=== PATIENT | male | born 1950 | race Caucasian/White ===

== ENCOUNTER 2017-10-23 11:40 | Emergency (ER) | payer MEDICARE, SELFPAY | END 2017-10-23 13:23 | disposition home or self-care (01) | PROVIDERS: Emergency Provider Nurse Practitioner Family; Family Provider Internal Medicine Adolescent Medicine; Visit Provider Nurse Practitioner Family | DX: J10.1 Influenza due to other identified influenza virus with other respiratory manifestations (principal); R50.9 Fever, unspecified | CPT/HCPCS: 87804; 99201 ==

== ENCOUNTER → 2018-06-22 12:50 | Outpatient (CLI) | payer MEDICARE, SELFPAY ==
--- NOTE | 2018-06-22 13:10 | NVE_ITS ---
Venous Exam Indications: 729.5 Pain in limb. IMPRESSIONS 1. There is no evidence of significant Reflux. 2. No evidence of deep or superficial vein thrombosis involving the left lower extremity Left lower extremity venous duplex evaluation. Doppler flow study including spectral analysis, color and velasquez scale imaging. Location: Vascular laboratory. Patient status: Outpatient. Tables: Venous flow and imaging: + +-------+ + Location Overall Flow properties + +-------+ + Left common femoral Patent Normal phasicity; spontaneous; normal augmentation; compressible + +-------+ + Left saphenofemoral junction Patent Compressible + +-------+ + Left profunda femoral Patent Compressible + +-------+ + Left femoral Patent Normal phasicity; spontaneous; normal augmentation; compressible + +-------+ + Left greater saphenous Patent Normal phasicity; spontaneous; normal augmentation; compressible + +-------+ + Left popliteal Patent Normal phasicity; spontaneous; normal augmentation; compressible + +-------+ + Left posterior tibial Patent Compressible + +-------+ + Left peroneal Patent Compressible + +-------+ + Left gastrocnemius Patent Compressible + +-------+ + Left soleal Patent Compressible + +-------+ + (Report amended ) Electronically signed by: Mike Adair [id number]
[2018-06-22 14:25] LABS: Alanine Aminotransferase 48 U/L (12-78); Albumin Level 4.2 gm/dL (3.4-5.0); Albumin/Globulin Ratio 1.3 (1.1-1.8); Alkaline Phosphatase 95 U/L (46-116); Anion Gap 15.2 mEq/L (5-15); Aspartate Amino Transferase 25 U/L (15-37); Bilirubin,Total 0.6 mg/dL (0.2-1.0); Blood Urea Nitrogen 6 mg/dL (7-18); Calcium 9.3 mg/dL (8.5-10.1); Carbon Dioxide 25 mmol/L (21.0-32.0); Chloride 100 mmol/L (98-107); Chol/HDL Ratio 2.6 (1-3.5); Cholesterol 247 mg/dL (140-200); Estimated Glomerular Filt Rate 84 ml/min (>60); GFR (African American) 102 ML/MIN (>60); Globulin 3.3 gm/dl (1.3-3.2); Glucose 127 mg/dL (74-106); HDL Cholesterol 94 mg/dL (27-67); LDL Cholesterol 136 mg/dL (0-130); Potassium 4.2 mmoL/L (3.5-5.1); Sodium 136 mmol/L (136-145); Total Protein,Serum 7.5 gm/dL (6.4-8.2); Triglycerides 84 mg/dL (30-200); VLDL Cholesterol 17 mg/dL (0-40)
[2018-06-22 15:15] LABS: INR 8.93 (0.9-1.1); Prothrombin Time 86.3 seconds (9.4-11.8)
== END ==
PROVIDERS: PCP Internal Medicine Adolescent Medicine; Visit Provider Nurse Practitioner Family
DX: Z00.00 Encounter for general adult medical examination without abnormal findings (principal); Z79.01 Long term (current) use of anticoagulants; Z51.81 Encounter for therapeutic drug level monitoring; I48.0 Paroxysmal atrial fibrillation; M79.605 Pain in left leg; E78.5 Hyperlipidemia, unspecified
CPT/HCPCS: 36415; 80053; 80061; 85610; 93971

== ENCOUNTER 2018-06-27 08:27 | Outpatient (CLI) | payer MEDICARE, SELFPAY ==
[2018-06-27 10:26] LABS: PHA INR Fingerstick 1.6 (0.9-1.1)
== END 2018-06-27 11:33 | disposition home or self-care (01) ==
LOC: ACC 08:29
PROVIDERS: PCP Internal Medicine Adolescent Medicine; Visit Provider Internal Medicine Adolescent Medicine
DX: Z79.01 Long term (current) use of anticoagulants (principal); Z51.81 Encounter for therapeutic drug level monitoring; I48.91 Unspecified atrial fibrillation
CPT/HCPCS: 85610; 99211; G0463

== ENCOUNTER 2018-07-05 09:01 | Outpatient (CLI) | payer MEDICARE, SELFPAY ==
[2018-07-05 10:31] LABS: PHA INR Fingerstick 2.4 (0.9-1.1)
== END 2018-07-05 10:41 | disposition home or self-care (01) ==
LOC: ACC 09:04
PROVIDERS: Family Provider Internal Medicine Adolescent Medicine; PCP Internal Medicine Adolescent Medicine; Visit Provider Internal Medicine Adolescent Medicine
DX: Z51.81 Encounter for therapeutic drug level monitoring (principal); Z79.01 Long term (current) use of anticoagulants; I48.91 Unspecified atrial fibrillation
CPT/HCPCS: 85610; 99211; G0463

== ENCOUNTER 2018-07-14 08:51 | Outpatient (CLI) | payer MEDICARE, SELFPAY ==
[2018-07-14 09:45] LABS: PHA INR Fingerstick 2.7 (0.9-1.1)
== END 2018-07-14 09:48 | disposition home or self-care (01) ==
LOC: ACC 08:51
PROVIDERS: PCP Internal Medicine Adolescent Medicine; Visit Provider Internal Medicine Adolescent Medicine
DX: Z79.01 Long term (current) use of anticoagulants (principal); Z51.81 Encounter for therapeutic drug level monitoring; I48.91 Unspecified atrial fibrillation
CPT/HCPCS: 85610; 99211; G0463

== ENCOUNTER 2018-08-07 08:47 | Outpatient (CLI) | payer MEDICARE, SELFPAY ==
[2018-08-07 09:33] LABS: PHA INR Fingerstick 2.1 (0.9-1.1)
== END 2018-08-07 09:43 | disposition home or self-care (01) ==
LOC: ACC 08:48
PROVIDERS: PCP Internal Medicine Adolescent Medicine; Visit Provider Internal Medicine Adolescent Medicine
DX: Z51.81 Encounter for therapeutic drug level monitoring (principal); Z79.01 Long term (current) use of anticoagulants; I48.91 Unspecified atrial fibrillation
CPT/HCPCS: 85610; 99211; G0463

== ENCOUNTER 2018-08-28 08:52 | Outpatient (CLI) | payer MEDICARE, SELFPAY ==
[2018-08-28 09:55] LABS: PHA INR Fingerstick 2.7 (0.9-1.1)
== END 2018-08-28 09:56 | disposition home or self-care (01) ==
LOC: ACC 08:53
PROVIDERS: PCP Internal Medicine Adolescent Medicine; Visit Provider Internal Medicine Adolescent Medicine
DX: Z51.81 Encounter for therapeutic drug level monitoring (principal); Z79.01 Long term (current) use of anticoagulants; I48.91 Unspecified atrial fibrillation
CPT/HCPCS: 85610; 99211; G0463

== ENCOUNTER 2018-11-27 09:02 | Outpatient (CLI) | payer MEDICARE, SELFPAY ==
[2018-11-27 16:43] LABS: PHA INR Fingerstick 1.6 (0.9-1.1)
== END 2018-11-27 16:49 | disposition home or self-care (01) ==
LOC: ACC 09:04
PROVIDERS: PCP Internal Medicine Adolescent Medicine; Visit Provider Internal Medicine Adolescent Medicine
DX: Z51.81 Encounter for therapeutic drug level monitoring (principal); Z79.01 Long term (current) use of anticoagulants; I48.91 Unspecified atrial fibrillation
CPT/HCPCS: 85610; 99211; G0463

== ENCOUNTER → 2019-08-27 09:56 | Outpatient (CLI) | payer MEDICARE, SELFPAY ==
[2019-08-27 10:51] LABS: Basophils # 0.1 K/mm3 (0-0.2); Basophils % 0.9 % (0.1-2.0); Eosinophils # 0.4 K/mm3 (0.0-0.4); Eosinophils % 3.6 % (0.1-12.0); Hematocrit 51.7 % (42.0-52.0); Lymphocytes # 2.1 K/mm3 (0.7-4.5); Lymphocytes % 21.5 % (10-50); Mean Corpuscular HGB Conc 32.9 g/dL (31.8-35.4); Mean Corpuscular Hemoglobin 31.6 pg (27.0-31.2); Mean Platelet Volume 8.2 fl (7.4-10.4); Monocytes # 0.8 K/mm3 (0.1-1.0); Monocytes % 8.4 % (1.7-9.3); Neutrophils # 6.5 K/mm3 (1.8-7.8); Neutrophils % 65.6 % (37.0-80.0); Platelet Count 351 K/mm3 (142-424); Red Blood Count 5.38 M/mm3 (4.60-6.20); White Blood Count 9.9 K/mm3 (4.8-10.8)
[2019-08-27 11:55] LABS: INR 5.17 (0.9-1.1)
[2019-08-27 13:45] LABS: Prothrombin Time 49.7 seconds (9.4-11.8)
[2019-08-27 20:35] LABS: Alanine Aminotransferase 35 U/L (12-78); Albumin Level 3.8 gm/dL (3.4-5.0); Albumin/Globulin Ratio 1.3 (1.1-1.8); Alkaline Phosphatase 80 U/L (46-116); Anion Gap 13.6 mEq/L (5-15); Aspartate Amino Transferase 17 U/L (15-37); Bilirubin,Total 0.7 mg/dL (0.2-1.0); Blood Urea Nitrogen 12 mg/dL (7-18); Calcium 9.6 mg/dL (8.5-10.1); Carbon Dioxide 28 mmol/L (21.0-32.0); Chloride 102 mmol/L (98-107); Chol/HDL Ratio 2.2 (1-3.5); Cholesterol 161 mg/dL (140-200); Creatinine,Serum 0.75 mg/dL (0.70-1.30); Estimated Glomerular Filt Rate 104 ml/min (>60); Free Thyroxine Index 2.8 ug/dL (5.93-13.13); GFR (African American) 125 ML/MIN (>60); Glucose 110 mg/dL (74-106); HDL Cholesterol 72 mg/dL (27-67); LDL Cholesterol 65 mg/dL (0-130); Magnesium 1.6 mg/dL (1.4-2.2); Potassium 4.6 mmoL/L (3.5-5.1); Sodium 139 mmol/L (136-145); T4 (Thyroxine) 7.7 ug/dl (4.7-13.3); Thyroid Stimulating Hormone 1.61 uIU/ml (0.358-3.740); Total Protein,Serum 6.8 gm/dL (6.4-8.2); Triglycerides 118 mg/dL (30-200); Triiodothryronine (T3) Uptake 36 % (31-39); VLDL Cholesterol 24 mg/dL (0-40)
== END ==
PROVIDERS: Visit Provider Internal Medicine Adolescent Medicine
DX: I48.0 Paroxysmal atrial fibrillation (principal); E78.5 Hyperlipidemia, unspecified
CPT/HCPCS: 36415; 80053; 80061; 83735; 84436; 84443; 84479; 85025; 85610

== ENCOUNTER 2019-08-31 08:34 | Outpatient (CLI) | payer MEDICARE, SELFPAY ==
[2019-08-31 13:50] LABS: PHA INR Fingerstick 1.4 (0.9-1.1)
== END 2019-08-31 14:10 | disposition home or self-care (01) ==
LOC: ACC 08:35
PROVIDERS: PCP Internal Medicine Adolescent Medicine; Visit Provider Internal Medicine Adolescent Medicine
DX: Z51.81 Encounter for therapeutic drug level monitoring (principal); Z79.01 Long term (current) use of anticoagulants; I48.91 Unspecified atrial fibrillation
CPT/HCPCS: 85610; 99211; G0463

== ENCOUNTER 2019-10-01 09:26 | Outpatient (CLI) | payer MEDICARE, SELFPAY ==
[2019-10-01 11:57] LABS: PHA INR Fingerstick 2.5 (0.9-1.1)
== END 2019-10-01 12:03 | disposition home or self-care (01) ==
LOC: ACC 09:27
PROVIDERS: PCP Internal Medicine Adolescent Medicine; Visit Provider Internal Medicine Adolescent Medicine
DX: Z51.81 Encounter for therapeutic drug level monitoring (principal); Z79.01 Long term (current) use of anticoagulants; I48.91 Unspecified atrial fibrillation
CPT/HCPCS: 85610; 99211; G0463

== ENCOUNTER 2019-11-05 09:59 | Outpatient (CLI) | payer MEDICARE, SELFPAY ==
[2019-11-05 14:44] LABS: PHA INR Fingerstick 3.2 (0.9-1.1)
== END 2019-11-05 14:58 | disposition home or self-care (01) ==
LOC: ACC 10:01
PROVIDERS: PCP Internal Medicine Adolescent Medicine; Visit Provider Internal Medicine Adolescent Medicine
DX: Z51.81 Encounter for therapeutic drug level monitoring (principal); Z79.01 Long term (current) use of anticoagulants; I48.91 Unspecified atrial fibrillation
CPT/HCPCS: 85610; 99211; G0463

== ENCOUNTER → 2020-02-16 09:36 | Outpatient (CLI) | payer MEDICARE, SELFPAY ==
[2020-02-16 09:55] LABS: Basophils # 0.2 K/mm3 (0-0.2); Basophils % 2.1 % (0.1-2.0); Eosinophils # 0.5 K/mm3 (0.0-0.4); Eosinophils % 6.3 % (0.1-12.0); Hematocrit 49.1 % (42.0-52.0); Hemoglobin 16.8 g/dL (14.1-18.0); Lymphocytes % 24.8 % (10-50); Mean Corpuscular HGB Conc 34.3 g/dL (31.8-35.4); Mean Corpuscular Hemoglobin 32.3 pg (27.0-31.2); Mean Corpuscular Volume 94.3 fl (80-94); Mean Platelet Volume 7.8 fl (7.4-10.4); Monocytes # 0.6 K/mm3 (0.1-1.0); Monocytes % 7.2 % (1.7-9.3); Neutrophils # 4.9 K/mm3 (1.8-7.8); Neutrophils % 59.7 % (37.0-80.0); Platelet Count 276 K/mm3 (142-424); Red Cell Distribution Width 12.9 % (11.5-17.5); White Blood Count 8.2 K/mm3 (4.8-10.8)
[2020-02-16 10:27] LABS: Hemoglobin A1C 5.4 % (4.0-6.0)
[2020-02-16 11:13] LABS: Alanine Aminotransferase 51 U/L (12-78); Albumin Level 4.5 g/dl (3.5-5.0); Albumin/Globulin Ratio 1.7 (1.1-1.8); Alkaline Phosphatase 65 U/L (38-126); Anion Gap 5.4 mEq/L (5-15); Aspartate Amino Transferase 41 U/L (17-59); Bilirubin,Total 0.5 mg/dl (0.2-1.3); Blood Urea Nitrogen 13 mg/dl (9-20); Calcium 10.2 mg/dl (8.4-10.2); Carbon Dioxide 27 mmol/L (22.0-30.0); Chloride 101 mmol/L (98-107); Chol/HDL Ratio 2.5 (1-3.5); Cholesterol 235 mg/dl (140-200); Estimated Glomerular Filt Rate 112 ml/min (>60); GFR (African American) 135 ML/MIN (>60); Globulin 2.7 g/dL (1.3-3.2); Glucose 112 mg/dl (74-100); HDL Cholesterol 95 mg/dl (40-60); Potassium 4.4 mmoL/L (3.5-5.1); Sodium 129 mmol/L (136-145); Total Protein,Serum 7.2 g/dl (6.3-8.2); Triglycerides 115 mg/dl (30-150); VLDL Cholesterol 23 mg/dL (0-40)
[2020-02-16 11:24] LABS: Direct LDL Cholesterol 150.12 mg/dL (100-129)
[2020-02-16 11:44] LABS: Thyroid Stimulating Hormone 2.78 uIU/mL (0.465-4.68)
[2020-02-17 15:17] LABS: Rapid Plasma Reagin Ab Titer Non Reactive (NonRea<1:1)
[2020-02-18 11:06] LABS: Vitamin D 25 Hydroxy 14.6 ng/mL (30.0-100.0)
[2020-02-18 12:47] LABS: Vitamin B12 556 pg/mL (232-1245)
== END ==
PROVIDERS: Visit Provider Internal Medicine Adolescent Medicine
DX: I10 Essential (primary) hypertension (principal); G60.9 Hereditary and idiopathic neuropathy, unspecified; E55.9 Vitamin D deficiency, unspecified; Z79.899 Other long term (current) drug therapy
CPT/HCPCS: 36415; 80053; 80061; 82607; 82652; 83036; 84443; 85025; 86592

== ENCOUNTER → 2020-03-04 09:10 | Outpatient (CLI) | payer MEDICARE, SELFPAY ==
[2020-03-04 11:28] LABS: Chloride 101 mmol/L (98-107); Sodium 135 mmol/L (136-145)
[2020-03-04 11:31] LABS: Blood Urea Nitrogen 11 mg/dl (9-20); Carbon Dioxide 25 mmol/L (22.0-30.0); Estimated Glomerular Filt Rate 134 ml/min (>60); GFR (African American) 162 ML/MIN (>60)
[2020-03-04 11:32] LABS: Calcium 9.8 mg/dl (8.4-10.2); Glucose 103 mg/dl (74-100)
== END ==
PROVIDERS: Visit Provider Internal Medicine Adolescent Medicine
DX: E87.1 Hypo-osmolality and hyponatremia (principal)
CPT/HCPCS: 36415; 80048

== ENCOUNTER → 2020-10-15 13:25 | Outpatient (CLI) | payer MEDICARE, SELFPAY ==
[2020-10-15 14:21] LABS: Basophils # 0.1 K/mm3 (0-0.2); Basophils % 0.9 % (0.1-2.0); Eosinophils # 0.3 K/mm3 (0.0-0.4); Eosinophils % 2.5 % (0.1-12.0); Lymphocytes # 2.4 K/mm3 (0.7-4.5); Lymphocytes % 23.2 % (10-50); Mean Corpuscular HGB Conc 34.8 g/dL (31.8-35.4); Mean Corpuscular Hemoglobin 32.1 pg (27.0-31.2); Mean Corpuscular Volume 92.3 fl (80-94); Monocytes # 0.9 K/mm3 (0.1-1.0); Monocytes % 8.5 % (1.7-9.3); Neutrophils # 6.6 K/mm3 (1.8-7.8); Platelet Count 302 K/mm3 (142-424); Red Blood Count 5.31 M/mm3 (4.60-6.20); Red Cell Distribution Width 13.2 % (11.5-17.5); White Blood Count 10.2 K/mm3 (4.8-10.8)
[2020-10-15 14:40] LABS: Chloride 103 mmol/L (98-107)
[2020-10-15 14:41] LABS: Potassium 4.4 mmoL/L (3.5-5.1); Sodium 137 mmol/L (136-145)
[2020-10-15 14:43] LABS: Alanine Aminotransferase 36 U/L (12-78); Alkaline Phosphatase 88 U/L (38-126); Aspartate Amino Transferase 29 U/L (17-59); Bilirubin,Total 0.6 mg/dl (0.2-1.3); Blood Urea Nitrogen 9 mg/dl (9-20); Estimated Glomerular Filt Rate 111 ml/min (>60); GFR (African American) 135 ML/MIN (>60)
[2020-10-15 14:44] LABS: Albumin Level 4.5 g/dl (3.5-5.0); Albumin/Globulin Ratio 1.5 (1.1-1.8); Anion Gap 11.4 mEq/L (5-15); Calcium 10.2 mg/dl (8.4-10.2); Carbon Dioxide 27 mmol/L (22.0-30.0); Chol/HDL Ratio 2.7 (1-3.5); Cholesterol 222 mg/dl (140-200); Glucose 107 mg/dl (74-100); HDL Cholesterol 83 mg/dl (40-60); Total Protein,Serum 7.5 g/dl (6.3-8.2); Triglycerides 104 mg/dl (30-150); VLDL Cholesterol 21 mg/dL (0-40)
[2020-10-15 14:55] LABS: Direct LDL Cholesterol 121.57 mg/dL (100-129)
[2020-10-15 15:01] LABS: 25-OH Vitamin D, Total 27.3 ng/mL (30-100)
[2020-10-15 15:14] LABS: Thyroid Stimulating Hormone 3.09 uIU/mL (0.465-4.68)
== END ==
PROVIDERS: Visit Provider Internal Medicine Adolescent Medicine
DX: E78.5 Hyperlipidemia, unspecified (principal); E55.9 Vitamin D deficiency, unspecified; G60.9 Hereditary and idiopathic neuropathy, unspecified
CPT/HCPCS: 36415; 80053; 80061; 82306; 84443; 85025

== ENCOUNTER 2021-04-27 09:13 | Emergency (ER) | payer MEDICARE, SELFPAY ==
[2021-04-27 09:32] VITALS: BP 163/110; PULSE 78; RESP 22; TEMP 36.9; O2SAT 98; BMI 27.8
--- NOTE | 2021-04-27 09:50 | HMH.EDUTC ---
[facility] Disposition Clinical Impression: Bronchitis Sinusitis Qualifiers: Sinusitis location: unspecified location Chronicity: acute Recurrence: non-recurrent Qualified Code(s): J01.90 - Acute sinusitis, unspecified Disposition: Home, Self-Care Condition on Discharge: Good Instructions: DI for Sinusitis, DI for Acute Bronchitis Additional Instructions: Drink plenty of fluids. Take tylenol for pain or fever. Return if you have any worsening shortness of breath or Follow up with your regular doctor. GO TO THE ER FOR ANY WORSENING SYMPTOMS Prescriptions: Ondansetron [Zofran 4mg ODT] 4 mg PO Q8HP PRN #12 tab.rapdis PRN Reason: Nausea Transmission Status: Received by [facility] predniSONE [Deltasone 10mg tablet] 10 mg PO BID 3 Days #6 tab Transmission Status: Received by [facility] Cefdinir [Omnicef 300mg Capsule] 300 mg PO BID #20 cap Transmission Status: Received by [facility] Benzonatate [Tessalon Perle 100mg Cap] 100 mg PO TIDP PRN #30 cap PRN Reason: Cough Transmission Status: Received by [facility] Referrals: Quinton Temple MD [Primary Care Provider] - Time of Disposition: 10:29 Medical Decision Making - Medical Records Medical records reviewed: No: I reviewed the patient's medical records. - Teofilo Inquiry Pt receiving controlled substance: No Vital Signs: 04/27/21 09:32 04/27/21 10:24 Temperature 98.4 F 98.3 F Temperature Source Temporal Artery Scan Pulse Rate 74 Pulse Rate [Right] 78 Respiratory Rate 22 22 Blood Pressure 163/102 H Blood Pressure [Right Arm] 163/110 H Blood Pressure Mean [Right Arm] 127 Blood Pressure Source [Right Arm] Automatic Cuff Blood Pressure Position [Right Arm] Sitting 02 Sat by Pulse Oximetry 98 - Radiology Data #1 Image(s): Chest Image Reviewed: Yes I reviewed the patient's radiology image, Yes I have reviewed radiologist's interpretation Preliminary Findings: No Infiltrates Seen PROCEDURE: XR CHEST 2V CLINICAL HISTORY: cough, shortness of breath COMPARISON: CR CXR CHEST(2 VIEWS-NOT PORTABLE) from 11/08/[address] CHEST W/ CONTRAST from 10/02/2014 CR CXR CHEST(2 VIEWS-NOT PORTABLE) from 09/11/2015 CR CXR CHEST(2 VIEWS-NOT PORTABLE) from 06/01/2017 FINDINGS: There has been a prior CABG. Bipolar pacemaker is present from left subclavian approach. Normal heart size. No lobar consolidation or collapse. There is a small 5 mm nodular opacity overlying the left lower lobe at the 6th interspace possibly due to nipple shadow. Follow-up may confirm. Postsurgical changes lumbar spine. Right-sided carotid artery calcification. IMPRESSION: No acute finding. 5 mm nodular opacity left lower lung zone possibly due to nipple shadow or developing nodule. Follow-up may confirm stability Dictated by: Mike Adair MD 04/27/2021 10:12 Mike Adair MD in [place] 04/27/2021 10:12 Medical Decision Narrative: I discussed his chest x-ray with him. He is to f/u with his pcp for further evaluation. [facility] HPI - General Stated complaint: congestion, cough, vomiting Time Seen by Provider: 04/27/21 09:50 Mode of Arrival: Ambulatory Source of Information: Patient Limitations: No Limitations Description of Symptoms (Recalled from Triage Doc. by RN): pt c/o weakness, sinus congestion, lack of appetite and a low grade fever. pt appears slightly soa, and has a hx of COPD. pt has been vaccinated for covid. HEENT Symptoms (Recalled from RN notes): Yes (nasal congestion) Resp Symptoms (Recalled from RN notes): No Skin Symptoms (Recalled from RN notes): No MS Symptoms (Recalled from RN notes): No Functional Status (Recalled from RN notes): weakness - History of Present Illness Provider Complaint: He c/o 5 days of sinus congestion and feeling bad. He has had a low grade fever. He denies any shortness of breath or chest pain. - Related Data
--- NOTE | 2021-04-27 09:54 | XR_ITS ---
PROCEDURE: XR CHEST 2V CLINICAL HISTORY: cough, shortness of breath COMPARISON: CR CXR CHEST(2 VIEWS-NOT PORTABLE) from 11/08/[address] CHEST W/ CONTRAST from 10/02/2014 CR CXR CHEST(2 VIEWS-NOT PORTABLE) from 09/11/2015 CR CXR CHEST(2 VIEWS-NOT PORTABLE) from 06/01/2017 FINDINGS: There has been a prior CABG. Bipolar pacemaker is present from left subclavian approach. Normal heart size. No lobar consolidation or collapse. There is a small 5 mm nodular opacity overlying the left lower lobe at the 6th interspace possibly due to nipple shadow. Follow-up may confirm. Postsurgical changes lumbar spine. Right-sided carotid artery calcification. IMPRESSION: No acute finding. 5 mm nodular opacity left lower lung zone possibly due to nipple shadow or developing nodule. Follow-up may confirm stability Dictated by: Mike Adair MD 04/27/2021 10:12 Mike Adair MD in [place] 04/27/2021 10:12
[2021-04-27 10:24] VITALS: BP 163/102; PULSE 74; RESP 22; TEMP 36.8
== END 2021-04-27 10:35 | disposition home or self-care (01) ==
PROVIDERS: Emergency Provider Nurse Practitioner Family; PCP Internal Medicine Adolescent Medicine
DX: J20.9 Acute bronchitis, unspecified (principal); J01.90 Acute sinusitis, unspecified
CPT/HCPCS: 71046; 99202; G0463

== ENCOUNTER → 2021-05-07 13:12 | Outpatient (CLI) | payer MEDICARE, SELFPAY ==
--- NOTE | 2021-05-07 13:33 | CT_ITS ---
PROCEDURE: CT CHEST W CON CLINCAL INDICATION: LT LUNG MASS Abnormal chest x-ray follow-up. Possible left lower lobe nodule COMPARISON: CT CHW CT CHEST W/ CONTRAST from 10/02/2014 CR XR CHEST 2V from 04/27/2021 TECHNIQUE: IV Contrast: 75ml Isovue 370 Axial images obtained with sagittal and coronal reformats. All CT scans at the facility use one or more dose reduction, viz: automated exposure control, ma/kV adjustment per patient size (including targeted exams where dose is matched to indication, i.e. head), or iterative reconstruction technique. FINDINGS: Cardiac pacemaker device is present from the left subclavian approach with right atrial and right ventricular leads. There is been a prior CABG. The heart size is normal with a few small mediastinal lymph nodes. Coronary artery calcifications are present. No mediastinal or hilar mass or adenopathy. COPD changes. Calcified granuloma in the right lower lobe posteriorly. Patchy density is present in the left lower lobe consistent with an area of infiltrate and/or atelectatic change. There is mild diffuse bronchial thickening. No suspicious left lower lobe nodules evident. Radiographic abnormality likely corresponded to a nipple shadow. Upper abdominal images show heterogeneous fatty liver replacement. IMPRESSION: Patchy infiltrate or atelectasis in the left lower lobe. COPD changes. No suspicious nodule apparent. Dictated by: Mike Adair MD 05/07/2021 16:02 Mike Adair MD in [place] 05/07/2021 16:02
[2021-05-07 13:39] LABS: Blood Urea Nitrogen 13 mg/dl (9-20); Estimated Glomerular Filt Rate 111 ml/min (>60); GFR (African American) 135 ML/MIN (>60)
== END ==
LOC: RAD 13:12
PROVIDERS: PCP Internal Medicine Adolescent Medicine; Visit Provider Internal Medicine Adolescent Medicine
DX: R91.8 Other nonspecific abnormal finding of lung field (principal); I10 Essential (primary) hypertension
CPT/HCPCS: 36415; 71260; 82565; 84520; Q9967

== ENCOUNTER → 2022-09-29 08:11 | Outpatient (CLI) | payer MEDICARE, SELFPAY ==
--- NOTE | 2022-09-29 08:48 | CT_ITS ---
FINAL REPORT CLINICAL HISTORY: H/O NICOTINE DEPENDENCE FINDINGS: Low-Dose Chest CT Axial images were obtained from the lung apex to the mid abdomen by computed tomography. Low-dose protocol was utilized. CTDI vol (mGy): 2.90 DLP (mGy-cm): 121.16 There is streak artifact from a left-sided pacemaker. There are multiple median sternotomy wires. There is no axillary adenopathy. There is no hilar or mediastinal adenopathy. The heart is proper size. There are dense coronary artery calcifications. There is no pericardial or pleural effusion. Lung window images demonstrate moderate changes of centrilobular emphysema. There are linear densities in both lung bases consistent with scarring. There are some small nodular densities in the left lung base measuring up to 5 mm, favor inflammatory. Limited images of the upper abdomen are unremarkable. IMPRESSION: Lung RADS category 2. Recommend 12 month follow-up low-dose chest CT. Reviewed, Interpreted and Dictated by Car Alegria MD Transcribed by Sonia Olivia Authenticated and [facility]
== END ==
PROVIDERS: PCP Internal Medicine Adolescent Medicine; Visit Provider Internal Medicine Adolescent Medicine
DX: Z87.891 Personal history of nicotine dependence (principal); Z12.2 Encounter for screening for malignant neoplasm of respiratory organs
CPT/HCPCS: 71271

== ENCOUNTER → 2022-12-09 10:54 | Outpatient (CLI) | payer MEDICARE, SELFPAY ==
--- NOTE | 2022-12-09 11:00 | XR_ITS ---
FINAL REPORT CLINICAL HISTORY: DYSURIA, PNA, former smoker COMPARISON: 04/27/2021 FINDINGS: 2 views of the chest were obtained . The heart is normal in size. There is a left-sided pacemaker in place. The mediastinum is within normal limits. The lungs are clear. There is no pneumothorax. Osseous structures are unremarkable. IMPRESSION: No acute cardiopulmonary process. Reviewed, Interpreted and Dictated by Car Alegria MD Transcribed by Nereida Eckert Authenticated and [facility]
[2022-12-09 12:12] LABS: Basophils # 0.2 K/mm3 (0-0.2); Basophils % 0.9 % (0.1-2.0); Eosinophils # 0.2 K/mm3 (0.0-0.4); Eosinophils % 1.3 % (0.1-12.0); Hematocrit 53.1 % (42.0-52.0); Hemoglobin 17.5 g/dL (14.1-18.0); Lymphocytes % 11.3 % (10-50); Mean Corpuscular HGB Conc 32.9 g/dL (31.8-35.4); Mean Corpuscular Hemoglobin 31.3 pg (27.0-31.2); Mean Corpuscular Volume 95.1 fl (80-94); Mean Platelet Volume 8.7 fl (7.4-10.4); Monocytes # 1.4 K/mm3 (0.1-1.0); Monocytes % 7.6 % (1.7-9.3); Neutrophils # 14.2 K/mm3 (1.8-7.8); Platelet Count 248 K/mm3 (142-424); Red Blood Count 5.58 M/mm3 (4.60-6.20); Red Cell Distribution Width 13.1 % (11.5-17.5); White Blood Count 17.9 K/mm3 (4.8-10.8)
[2022-12-09 12:17] LABS: MANUAL DIFFERENTIAL MANUAL DIFFERENTIAL (MANUAL DIFF)
[2022-12-09 12:47] LABS: Alanine Aminotransferase 29 U/L (12-78); Albumin Level 4.6 g/dl (3.5-5.0); Albumin/Globulin Ratio 1.6 (1.1-1.8); Alkaline Phosphatase 100 U/L (38-126); Anion Gap 11.1 mEq/L (5-15); Aspartate Amino Transferase 28 U/L (17-59); Bilirubin,Total 1.3 mg/dl (0.2-1.3); Blood Urea Nitrogen 13 mg/dl (9-20); Calcium 9.5 mg/dl (8.4-10.2); Carbon Dioxide 26 mmol/L (22.0-30.0); Chloride 103 mmol/L (98-107); Estimated Glomerular Filt Rate 111 ml/min (>60); GFR (African American) 134 ML/MIN (>60); Globulin 2.9 g/dL (1.3-3.2); Glucose 117 mg/dl (74-100); Potassium 4.1 mmoL/L (3.5-5.1); Sodium 136 mmol/L (136-145); Total Protein,Serum 7.5 g/dl (6.3-8.2)
[2022-12-09 14:58] LABS: Lymphocytes % 12 % (10-50); Monocytes % 4 % (2-9); Neutrophils % 84 % (42-76); Platelet Estimate Normal; RBC Morphology Normal; Total Cells Counted 100
== END ==
PROVIDERS: PCP Internal Medicine Adolescent Medicine; Visit Provider Nurse Practitioner Family
DX: R30.0 Dysuria (principal)
CPT/HCPCS: 36415; 71046; 80053; 85007; 85025

== ENCOUNTER → 2022-12-23 15:31 | Outpatient (CLI) | payer MEDICARE, SELFPAY ==
[2022-12-23 17:09] LABS: Basophils # 0.1 K/mm3 (0-0.2); Eosinophils # 0.5 K/mm3 (0.0-0.4); Eosinophils % 3.7 % (0.1-12.0); Hematocrit 52.6 % (42.0-52.0); Hemoglobin 16.8 g/dL (14.1-18.0); Lymphocytes # 1.6 K/mm3 (0.7-4.5); Lymphocytes % 12.9 % (10-50); Mean Corpuscular Hemoglobin 31.4 pg (27.0-31.2); Mean Corpuscular Volume 98.4 fl (80-94); Mean Platelet Volume 8.6 fl (7.4-10.4); Monocytes # 0.9 K/mm3 (0.1-1.0); Monocytes % 7.3 % (1.7-9.3); Neutrophils # 9.4 K/mm3 (1.8-7.8); Neutrophils % 75.2 % (37.0-80.0); Platelet Count 312 K/mm3 (142-424); Red Blood Count 5.34 M/mm3 (4.60-6.20); Red Cell Distribution Width 13.3 % (11.5-17.5); White Blood Count 12.5 K/mm3 (4.8-10.8)
[2022-12-23 17:24] LABS: Alanine Aminotransferase 31 U/L (12-78); Albumin Level 4.4 g/dl (3.5-5.0); Albumin/Globulin Ratio 1.6 (1.1-1.8); Alkaline Phosphatase 91 U/L (38-126); Anion Gap 8.6 mEq/L (5-15); Aspartate Amino Transferase 30 U/L (17-59); Bilirubin,Total 0.7 mg/dl (0.2-1.3); Blood Urea Nitrogen 16 mg/dl (9-20); Calcium 9.8 mg/dl (8.4-10.2); Carbon Dioxide 27 mmol/L (22.0-30.0); Chloride 104 mmol/L (98-107); Estimated Glomerular Filt Rate 95 ml/min (>60); GFR (African American) 115 ML/MIN (>60); Globulin 2.8 g/dL (1.3-3.2); Glucose 112 mg/dl (74-100); Potassium 4.6 mmoL/L (3.5-5.1); Sodium 135 mmol/L (136-145); Total Protein,Serum 7.2 g/dl (6.3-8.2)
[2022-12-23 17:54] LABS: Prostate Specific Ag Screen 2.3 ng/ml (0.0-4.0); Thyroid Stimulating Hormone 2.74 uIU/mL (0.465-4.68)
== END ==
PROVIDERS: PCP Nurse Practitioner Family; Visit Provider Nurse Practitioner Family
DX: J44.1 Chronic obstructive pulmonary disease with (acute) exacerbation (principal); R53.81 Other malaise; D72.9 Disorder of white blood cells, unspecified; Z12.5 Encounter for screening for malignant neoplasm of prostate
CPT/HCPCS: 36415; 80053; 84443; 85025; G0103

== ENCOUNTER 2022-12-29 11:24 | Observation (INO) | payer MEDICARE, SELFPAY ==
[2022-12-29] VITALS (15 sets, daily range): BP systolic 126–167; BP diastolic 71–95; PULSE 61–88; RESP 18–22; TEMP 36.4–36.8; O2SAT 89–96; BMI 27.1; BMI 26.2
--- NOTE | 2022-12-29 11:31 | ECG_ITS ---
APPROVED REPORT Exam: Resting ECG HR:79 bpm ECG Measurements Heart Rate 79 AXES FL 174 P 35 QRSd 99 QRS 66 QT 359 T 67 QTc 393 Conclusion SINUS RHYTHM SEPTAL MYOCARDIAL INFARCTION , PROBABLY OLD [40+ ms Q WAVE IN V1/V2] ABNORMAL ECG UNCONFIRMED REPORT Electronically signed by : Quinton Temple MD 12/30/2022 17:08:02
--- NOTE | 2022-12-29 11:34 | HMH.EDGENADL ---
Discharge Plan Disposition Patient Disposition: Admitted as Observation Condition: Fair Chief Complaint: Shortness of Breath/Dyspnea Prescriptions Prescriptions: No Action fluticasone furoate-vilanterol [Breo Ellipta] 100-25 mcg/dose blister with device 1 inh INHALATION DAILY warfarin 5 MG tablet 5 mg PO MOWEFR warfarin 5 MG tablet 2.5 mg PO SUTUTHSA metoprolol tartrate 50 MG tablet 50 mg PO BID ondansetron 4 MG tablet,disintegrating 4 mg PO Q8HP PRN (Reason: Nausea) Qty: 12 0RF Referrals Follow up/Referrals: Quinton Temple MD [Primary Care Provider] - See instructions Clinical Impressions Clinical Impression: Acute exacerbation of chronic obstructive pulmonary disease, Acute respiratory failure with hypoxia, Pneumonia Discharge ED Provider: Roshan Morocho General Adult HPI General Chief complaint: Shortness of Breath/Dyspnea Stated complaint: low oxygen, dizzy, phy ref Time Seen by Provider: 12/29/22 11:34 History of Present Illness HPI narrative: Patient states he has not felt well for 4 weeks. He has a cough producing yellow sputum. Feels weak and dizzy. Short of breath. Denies fever or chest pain. He has been seeing his primary care providers. He had a chest x-ray at the onset of the illness which was negative. He has been treated with steroids and antibiotics during the first week of the illness and has also been on albuterol and Trelegy inhalers, which he continues. He had a COVID test first week of the illness, but none since. Patient states that he felt worse today, went to see his primary care provider, and was sent to the emergency department. Review of medications indicates he was recently on Levaquin and prednisone. He has a diagnosis of COPD. He stopped smoking years ago, but was a 2-1/2 pack per day smoker for many years. He has had coronary bypass surgery in 2004. He has a history of A-fib and has had an ablation. Related Data Home Medications Medication Instructions Recorded Confirmed fluticasone furoate 100 1 inh inhalation DAILY 03/28/18 mcg-vilanterol 25 mcg/dose inhalation powder (Breo Ellipta) metoprolol tartrate 50 mg tablet 50 mg PO BID AFIB 08/31/19 08/31/19 warfarin 5 mg tablet 2.5 mg PO SUTUTHSA AFIB 08/31/19 08/31/19 warfarin 5 mg tablet 5 mg PO MOWEFR AFIB 08/31/19 08/31/19 Previous Rx's Medication Instructions Recorded ondansetron 4 mg disintegrating 4 mg PO Q8HP PRN Nausea ##12 04/27/21 tablet Allergies Allergy/AdvReac Type Severity Reaction Status Date / Time Penicillins Allergy Unknown DOESN'T Verified 12/29/22 12:07 WANT BECAUSE DAD IS ALLERGIC TO IT [facility] Disclaimer: The information contained in this section may have been updated after the patient was seen, as this information can be updated by other users. Social History Smoking Status: Former smoker alcohol intake: current ROS Obtained: Yes Systems reviewed as appropriate & no additional complaints except as documented Constitutional Constitutional: Reports fatigue, Denies fever(s), Denies headache(s), Reports malaise and Reports weakness ENT Ears, Nose, Mouth, and Throat: Denies headache(s), Denies nasal discharge and Denies sore throat Cardiovascular Cardiovascular: Denies chest pain Respiratory Respiratory: Reports shortness of breath and Reports cough Gastrointestinal Gastrointestingal: Denies abdominal pain, constipation, diarrhea or vomiting Genitourinary Male Genitourinary: Denies difficulty urinating and Denies flank pain Musculoskeletal Musculoskeletal: Denies numbness Neurologic Neurologic: Denies headache(s), Denies numbness and Reports weakness Endocrine Endocrine: Reports fatigue Physical Exam General General appearance: alert and in no apparent distress Comment: Frequent cough. SaO2 95% RA. Head Head exam: atraumatic and normocephalic Eye Eye exam: Present normal appearance and EOMI
--- NOTE | 2022-12-29 11:38 | PC.NURSE ---
ER at ; family at
--- NOTE | 2022-12-29 11:41 | XR_ITS ---
FINAL REPORT CLINICAL HISTORY: cough, soa COMPARISON: 12/09/2022 FINDINGS: PA and lateral views of the chest were obtained. There is evidence for prior median sternotomy. Left-sided pacemaker is noted and unchanged. The cardiac and mediastinal silhouettes are within normal limits. The lungs are clear. There is no pleural effusion or pneumothorax. No acute osseous abnormality is identified. IMPRESSION: No acute process, stable exam. Reviewed, Interpreted and Dictated by Agnes Lopez MD Transcribed by Cristela Tilley Authenticated and [facility]
--- NOTE | 2022-12-29 11:58 | PC.NURSE ---
To CT with sap technical architect
[2022-12-29 12:03] LABS: Coronavirus 19, PCR Not Detected (NotDetected); Influenza A, PCR Not Detected (NotDetected); Influenza B, PCR Not Detected (NotDetected)
[2022-12-29 12:07] LABS: Basophils # 0.2 K/mm3 (0-0.2); Basophils % 1.6 % (0.1-2.0); Eosinophils # 0.6 K/mm3 (0.0-0.4); Eosinophils % 6.7 % (0.1-12.0); Hematocrit 48.3 % (42.0-52.0); Hemoglobin 16.3 g/dL (14.1-18.0); Lymphocytes # 1.6 K/mm3 (0.7-4.5); Lymphocytes % 17.3 % (10-50); Mean Corpuscular HGB Conc 33.8 g/dL (31.8-35.4); Mean Corpuscular Hemoglobin 31.6 pg (27.0-31.2); Mean Corpuscular Volume 93.5 fl (80-94); Mean Platelet Volume 8.3 fl (7.4-10.4); Monocytes # 0.7 K/mm3 (0.1-1.0); Monocytes % 7.4 % (1.7-9.3); Neutrophils # 6.1 K/mm3 (1.8-7.8); Platelet Count 325 K/mm3 (142-424); Red Blood Count 5.16 M/mm3 (4.60-6.20); Red Cell Distribution Width 13.3 % (11.5-17.5); White Blood Count 9.1 K/mm3 (4.8-10.8)
--- NOTE | 2022-12-29 12:14 | PC.NURSE ---
specimen cup given to pt and education on collection
[2022-12-29 12:20] LABS: INR 0.99 (0.9-1.1); Prothrombin Time 10.7 seconds (10.1-12.5)
[2022-12-29 12:23] LABS: Chloride 103 mmol/L (98-107); Sodium 136 mmol/L (136-145)
[2022-12-29 12:25] LABS: Alanine Aminotransferase 31 U/L (12-78); Alkaline Phosphatase 89 U/L (38-126); Aspartate Amino Transferase 32 U/L (17-59); Bilirubin,Total 0.5 mg/dl (0.2-1.3); Blood Urea Nitrogen 6 mg/dl (9-20); Creatinine Clearance Estimated 86 mL/min (50-200); Estimated Glomerular Filt Rate 132 ml/min (>60); GFR (African American) 160 ML/MIN (>60); Lactic Acid 1.4 mmol/L (0.7-2.1)
[2022-12-29 12:26] LABS: Albumin Level 4.1 g/dl (3.5-5.0); Albumin/Globulin Ratio 1.4 (1.1-1.8); Calcium 8.7 mg/dl (8.4-10.2); Carbon Dioxide 26 mmol/L (22.0-30.0); Glucose 135 mg/dl (74-100); Total Protein,Serum 7.1 g/dl (6.3-8.2)
[2022-12-29 12:36] LABS: NT Pro Brain Natriuretic Pep. 81.2 pg/mL (0-125)
[2022-12-29 12:42] LABS: Troponin I < 0.01 ng/ml (0.00-0.034)
[2022-12-29 12:43] LABS: Adenovirus,PCR Not Detected (NotDetected); Bordetella Pertussis Not Detected (NotDetected); Chlamydophila Pneumoniae, PCR Not Detected (NotDetected); Coronavirus 19, PCR Not Detected (NotDetected); Coronavirus 229E Not Detected (NotDetected); Coronavirus NL63 Not Detected (NotDetected); Coronavirus OC43 Not Detected (NotDetected); Coronovirus HKU1,PCR Not Detected (NotDetected); Human Metapneumovirus Not Detected (NotDetected); Influenza A, PCR Not Detected (NotDetected); Influenza AH1, 2009 Not Detected (NotDetected); Influenza AH1, PCR Not Detected (NotDetected); Influenza AH3,PCR Not Detected (NotDetected); Influenza B, PCR Not Detected (NotDetected); Mycoplasma Pneumoniae, PCR Not Detected (NotDetected); Parainfluenza 1, PCR Not Detected (NotDetected); Parainfluenza 2, PCR Not Detected (NotDetected); Parainfluenza 3, PCR Not Detected (NotDetected); Parainfluenza 4, PCR Not Detected (NotDetected); Respiratory Syncytial Virus Not Detected (NotDetected); Rhinovirus/Enterovirus Not Detected (NotDetected)
--- NOTE | 2022-12-29 12:49 | PC.NURSE ---
rounded on pt no complaints at this time at bedside
--- NOTE | 2022-12-29 12:56 | PC.NURSE ---
called dr brasher to speak with ari murrieta about pt, dr brasher in a room waiting for call back
--- NOTE | 2022-12-29 13:32 | PC.NURSE ---
calling [facility] office agian to try and speak with ari murrieta about pt
--- NOTE | 2022-12-29 13:32 | PC.NURSE ---
rounded on pt no complaints at this time
--- NOTE | 2022-12-29 13:34 | PC.NURSE ---
ari murrieta speaking with dr brasher
--- NOTE | 2022-12-29 13:36 | CT_ITS ---
FINAL REPORT TECHNIQUE: Axial imaging of the chest is obtained after the administration of contrast. 3-D MIP reformatted images were also obtained and reviewed per PE protocol. CLINICAL HISTORY: Shortness of air COMPARISON: CT screening 09/29/[address] PE 05/07/2021 FINDINGS: The pulmonary arteries are well filled. There is no evidence of pulmonary embolus. There is no aortic dissection or intimal flap. No axillary lymphadenopathy. There are multiple mediastinal lymph nodes which have not significantly changed in size. There is a right hilar lymph node which is enlarged measuring 2 cm. There are changes from emphysema. There are new bilateral ground-glass opacities which may represent pulmonary edema. The lungs are otherwise clear.. There is no pleural or pericardial effusion. Limited evaluation of the upper abdomen is without acute abnormality. There is no acute osseous abnormality. IMPRESSION: No evidence of pulmonary embolism or aortic dissection. New bilateral ground-glass opacities favored to represent pulmonary edema. Right hilar lymphadenopathy could be reactive. Reviewed, Interpreted and Dictated by Agnes Lopez MD Transcribed by Cristela Tilley Authenticated and [facility] [place]
--- NOTE | 2022-12-29 14:34 | PC.NURSE ---
Rounded on patient; patient given a pepsi. Family at BS. No other needs at this time. call light within reach
--- NOTE | 2022-12-29 14:50 | PC.NURSE ---
To CT via wheelchair
--- NOTE | 2022-12-29 15:27 | PC.NURSE ---
checked on pt states no complaints,ambulated to restroom at bedside
--- NOTE | 2022-12-29 15:35 | PC.NURSE ---
rounded on pt, no needs at this time
--- NOTE | 2022-12-29 16:10 | PC.NURSE ---
called to radiology for preliminary
--- NOTE | 2022-12-29 16:15 | PC.NURSE ---
updated pt and family that report was back, was looking over it and would be in to discuss the results
--- NOTE | 2022-12-29 16:17 | PC.NURSE ---
rounded on pt he is getting very restless and aggravated about how long hes been waiting im reporting what pt told me to rn paige at bedside
--- NOTE | 2022-12-29 16:18 | PC.NURSE ---
CTA report prelim given to
--- NOTE | 2022-12-29 16:31 | PC.NURSE ---
bed assignment requested, room 207, all staff notified
--- NOTE | 2022-12-29 17:00 | PC.NURSE ---
becca, nurse from second floor to call back for report on pt
--- NOTE | 2022-12-29 17:14 | PC.NURSE ---
second attempt to call report to second floor
--- NOTE | 2022-12-29 17:23 | PC.NURSE ---
rounded on pt states no complaints at this time at bedside
--- NOTE | 2022-12-29 17:26 | PC.NURSE ---
arrived by w/c from ED
--- NOTE | 2022-12-29 18:15 | PC.NURSE ---
patient is okay with his daughters calling for information. Lisbeth Blas (daughter) Quinton Blas (Cardiology PA) Veronica Britt (daughter)
--- NOTE | 2022-12-29 20:27 | EXP.HP ---
History of Present Illness *Admission Date: 12/29/22 *Reason for visit:: Dyspnea and fatigue *History of present illness: 72-year-old male with history of COPD, heavy smoking history in the past and medical noncompliance who presented to my office today because he has been sick for 6 weeks and not getting any better. We have seen him in the office a couple of times for a febrile illness, was treated for a SIRS like illness/bronchopneumonia with levofloxacin and improved, but over the past couple weeks has failed to really resolve his illness and has had cough and congestion. Came to the office today, found to be dyspneic, pulse oximetry readings in the high 70% range and transferred to the emergency department. Please see ER notes for evaluation. CTA of chest was unremarkable for PE but did show fibrotic changes in his bases consistent with possible edema versus pneumonia. Given patient's persistent hypoxia compared to his baseline he was admitted for IV antibiotics, further diagnostic testing, and pulmonary consultation/review of his chest x-ray. [facility] Disclaimer: The information contained in this section may have been updated after the patient was seen, as this information can be updated by other users. Medical History (Updated 12/29/22 @ 17:57 by Graeme Whitehead RN) Acute carpal tunnel syndrome Surgical History (Updated 12/29/22 @ 17:57 by Graeme Whitehead RN) Previous back surgery Family History (Updated 12/29/22 @ 17:58 by Graeme Whitehead RN) No significant family history Social History (Updated 12/29/22 @ 17:59 by Graeme Whitehead RN) Smoking Status: Former smoker alcohol intake: current current occupational status: retired Travel in the last 8 weeks: Outside the [facility] housing: house lives independently: Yes marital status: Review of Systems Review of Systems Review of systems:: pertinent systems reviewed and negative unless documented below Constitutional Constitutional: Denies headache(s) and Reports weakness ENT Ears, Nose, Mouth, and Throat: Denies headache(s) *Musculoskeletal Musculoskeletal: Denies numbness *Neurologic Neurologic: Denies headache(s), Denies numbness and Reports weakness Meds Home Medications and Allergies Home Medications Medication Instructions Recorded Confirmed Type albuterol sulfate 90 mcg/actuation 90 mcg inhalation QID COPD 12/29/22 12/29/22 History aerosol inhaler fluticasone fur. 100 mcg-umeclid 100 inh inhalation DAILY COPD 12/29/22 12/29/22 History 62.5 mcg-vilant 25 mcg inhalat.powder (Trelegy Ellipta) losartan 50 mg-hydrochlorothiazide 50 - 125 tab PO DAILY htn 12/29/22 12/29/22 History 12.5 mg tablet pregabalin 150 mg capsule 150 mg PO DAILY Neuropathy 12/29/22 12/29/22 History tamsulosin 0.4 mg capsule 0.4 mg PO DAILY Prostate 12/29/22 12/29/22 History New Prescriptions to Start Prescriptions: Allergies Allergy/AdvReac Type Severity Reaction Status Date / Time Penicillins Allergy Unknown DOESN'T Verified 12/29/22 12:07 WANT BECAUSE DAD IS ALLERGIC TO IT Exam Data for Last 24 hours Vital signs and Labs for Last 24 Hours: Temp Pulse Resp BP Pulse Ox 97.6 F 84 18 135/76 93 L 12/29/22 20:00 12/29/22 20:09 12/29/22 20:00 12/29/22 20:00 12/29/22 20:00 Laboratory Results - last 24 hr 12/29/22 11:55: WBC 9.1, RBC 5.16, Hgb 16.3, Hct 48.3, MCV 93.5, MCH 31.6 H, MCHC 33.8, RDW 13.3, Plt Count 325, MPV 8.3, Neut % (Auto) 67.0, Lymph % (Auto) 17.3, [place] % (Auto) 7.4, Eos % (Auto) 6.7, Baso % (Auto) 1.6, Neut # (Auto) 6.1, Lymph # (Auto) 1.6, [place] # (Auto) 0.7, Eos # (Auto) 0.6 H, Baso # (Auto) 0.2 12/29/22 11:55: Sodium 136, Potassium 4.0, Chloride 103, Carbon Dioxide 26, Anion Gap 11.0, BUN 6 L, Creatinine 0.60 L, Estimated Creat Clear 86, Estimated GFR 132, Est GFR ( Amer) 160, Glucose 135 H, Calcium 8.7, Total Bilirubin 0.5, AST 32,
--- NOTE | 2022-12-29 20:40 | PC.NURSE ---
2039 dr braden called regarding pt request for Lyrica, pt states he takes it at home for his leg pain related to neuropathy and can not go without it, pt states he will not be able to sleep without it, noted T.O. received for home dose of Lyrica 150mg po qhs, repeated and verified.
[2022-12-30] VITALS: BP 141/71; PULSE 71; RESP 20; TEMP 36.4; O2SAT 95
[2022-12-30 03:53] VITALS: BP 136/54; PULSE 74; RESP 18; TEMP 36.5; O2SAT 91; BMI 25.7
--- NOTE | 2022-12-30 05:34 | PC.NURSE ---
pt restless through the night and states the steroids given are causing him to not sleep, pt is alert and oriented x4, lungs cta, pt with o2 sats 91-95 on room air, vss, no acute distress, skin pwd and without edema, no other issues or concerns at this time, pt denies any pain, pt c/o of soa with exertions
[2022-12-30 06:00] VITALS: PULSE 72; PULSE 78
[2022-12-30 07:00] LABS: Basophils # 0.1 K/mm3 (0-0.2); Basophils % 0.3 % (0.1-2.0); Eosinophils # 0.2 K/mm3 (0.0-0.4); Hematocrit 48.8 % (42.0-52.0); Hemoglobin 15.8 g/dL (14.1-18.0); Lymphocytes # 1.5 K/mm3 (0.7-4.5); Lymphocytes % 8.3 % (10-50); Mean Corpuscular HGB Conc 32.4 g/dL (31.8-35.4); Mean Corpuscular Hemoglobin 31.3 pg (27.0-31.2); Mean Corpuscular Volume 96.6 fl (80-94); Mean Platelet Volume 8.5 fl (7.4-10.4); Monocytes # 0.8 K/mm3 (0.1-1.0); Monocytes % 4.4 % (1.7-9.3); Neutrophils # 15.9 K/mm3 (1.8-7.8); Platelet Count 340 K/mm3 (142-424); Red Blood Count 5.05 M/mm3 (4.60-6.20); Red Cell Distribution Width 13.3 % (11.5-17.5); White Blood Count 18.5 K/mm3 (4.8-10.8)
[2022-12-30 07:05] LABS: MANUAL DIFFERENTIAL MANUAL DIFFERENTIAL (MANUAL DIFF)
[2022-12-30 07:08] LABS: Anion Gap 10.9 mEq/L (5-15); Blood Urea Nitrogen 12 mg/dl (9-20); Calcium 9.1 mg/dl (8.4-10.2); Carbon Dioxide 25 mmol/L (22.0-30.0); Chloride 102 mmol/L (98-107); Creatinine Clearance Estimated 82 mL/min (50-200); Estimated Glomerular Filt Rate 111 ml/min (>60); GFR (African American) 134 ML/MIN (>60); Glucose 152 mg/dl (74-100); Potassium 3.9 mmoL/L (3.5-5.1); Sodium 134 mmol/L (136-145)
--- NOTE | 2022-12-30 07:25 | HMH.PHAINT1 ---
Pharmacy Intervention Comments: Medication reconciliation completed using external fill history and patient interview
[2022-12-30 07:33] VITALS: BP 155/77; PULSE 103; RESP 20; TEMP 36.3; O2SAT 100
[2022-12-30 07:58] LABS: Lymphocytes % 13 % (10-50); Monocytes % 4 % (2-9); Neutrophils % 83 % (42-76); Platelet Estimate Normal; RBC Morphology Normal; Total Cells Counted 100
--- NOTE | 2022-12-30 10:14 | EXP.PULM.CON ---
History of Present Illness History of present illness: Mr. Poon is a 72-year-old male greater than [id number] smoking history, last smoked in 2014 cancer diagnosis COPD at baseline and uses nebulizations on as-needed basis, significant symptom burden, not using any oxygen therapy presented to the ER with worsening respiratory distress needing new oxygen supplementation pulmonary was called for further evaluation. Patient is having symptoms of worsening dyspnea and wheezing for the last 3 to 4 weeks with productive cough of whitish to yellowish phlegm with febrile episode status post treatment antibiotics 4 weeks ago with resolution of febrile episodes but continued to have respiratory distress. He presented to Dr. Temple's clinic yesterday noted to be saturating in 80s and was sent to the ER for further evaluation. [facility] Disclaimer: The information contained in this section may have been updated after the patient was seen, as this information can be updated by other users. Medical History (Updated 12/30/22 @ 10:14 by Micah Loera MD) Acute carpal tunnel syndrome COPD exacerbation ILD (interstitial lung disease) Surgical History (Updated 12/29/22 @ 17:57 by Graeme Whitehead RN) Previous back surgery Family History (Updated 12/29/22 @ 17:58 by Graeme Whitehead RN) Other No significant family history Social History (Updated 12/29/22 @ 17:59 by Graeme Whitehead RN) Smoking Status: Former smoker alcohol intake: current current occupational status: retired Travel in the last 8 weeks: Outside the [facility] housing: house lives independently: Yes marital status: Review of Systems Constitutional Constitutional: Reports fatigue, Denies headache(s) and Reports weakness Eyes Eyes: Denies eye discharge, Denies dry eyes, Denies irritation and Denies itchy eyes ENT Ears, Nose, Mouth, and Throat: Denies headache(s), Denies lip swelling and Denies throat swelling *Cardiovascular Cardiovascular: Reports dyspnea, Reports dyspnea on exertion and Reports orthopnea *Respiratory Respiratory: Reports change in phlegm color, Reports chest congestion, Reports cough, Reports dyspnea, Reports dyspnea on exertion, Reports excessive phlegm production and Reports wheezing *Gastrointestinal Gastrointestinal: Denies abdominal pain, Denies belching and Denies cramping *Musculoskeletal Musculoskeletal: Denies numbness *Neurologic Neurologic: Denies headache(s), Denies numbness and Reports weakness Psychiatric Psychiatric: Denies homicidal ideation and Denies suicidal ideation Endocrine Endocrine: Reports fatigue and Denies heat intolerance Hematologic/Lymphatic Hematologic/Lymphatic: Denies easy bleeding and Denies lymphadenopathy Allergic/Immunologic Allergic/Immunologic: Denies itchy eyes, Denies lip swelling, Denies throat swelling and Reports wheezing Pulmonology Exam Inpatient Vital signs and Labs for Last 24 Hours: Temp Pulse Resp BP Pulse Ox 97.4 F L 103 H 20 155/77 H 100 12/30/22 07:33 12/30/22 07:33 12/30/22 07:33 12/30/22 07:33 12/30/22 07:33 Laboratory Results - last 24 hr 12/29/22 11:55: WBC 9.1, RBC 5.16, Hgb 16.3, Hct 48.3, MCV 93.5, MCH 31.6 H, MCHC 33.8, RDW 13.3, Plt Count 325, MPV 8.3, Neut % (Auto) 67.0, Lymph % (Auto) 17.3, [place] % (Auto) 7.4, Eos % (Auto) 6.7, Baso % (Auto) 1.6, Neut # (Auto) 6.1, Lymph # (Auto) 1.6, [place] # (Auto) 0.7, Eos # (Auto) 0.6 H, Baso # (Auto) 0.2 12/29/22 11:55: Sodium 136, Potassium 4.0, Chloride 103, Carbon Dioxide 26, Anion Gap 11.0, BUN 6 L, Creatinine 0.60 L, Estimated Creat Clear 86, Estimated GFR 132, Est GFR ( Amer) 160, Glucose 135 H, Calcium 8.7, Total Bilirubin 0.5, AST 32, ALT 31, Alkaline Phosphatase 89, Troponin I < 0.01, Total Protein 7.1, Albumin 4.1, Globulin 3.0, Albumin/Globulin Ratio 1.4 12/29/22 11:55: Lactate 1.4 12/29/22 11:55: SARS-CoV-2 (PCR) Not detected, Influenza A Untype (PCR) Not detected, Influenza
[2022-12-30 10:15] VITALS: PULSE 62; PULSE 77; O2SAT 97
--- NOTE | 2022-12-30 10:27 | EXP.DC.SUM ---
General Admission date:: 12/29/22 Discharge date: 12/30/22 HPI HPI HPI: 72-year-old male with history of COPD, heavy smoking history in the past and medical noncompliance who presented to my office today because he has been sick for 6 weeks and not getting any better. We have seen him in the office a couple of times for a febrile illness, was treated for a SIRS like illness/bronchopneumonia with levofloxacin and improved, but over the past couple weeks has failed to really resolve his illness and has had cough and congestion. Came to the office today, found to be dyspneic, pulse oximetry readings in the high 70% range and transferred to the emergency department. Please see ER notes for evaluation. CTA of chest was unremarkable for PE but did show fibrotic changes in his bases consistent with possible edema versus pneumonia. Given patient's persistent hypoxia compared to his baseline he was admitted for IV antibiotics, further diagnostic testing, and pulmonary consultation/review of his chest x-ray. Hospital Course Hospital Course Hospital Course: Patient was admitted to hospital. CTA was done, groundglass opacities noted. Improved with Lasix. Echo was done, results are pending at the time of discharge. He felt much better and was able to be off oxygen. Patient seen by pulmonary. Recommendations reviewed and appreciated. Patient is stable for discharge and will be discharged with Augmentin, prednisone, DuoNebs 3 times daily and follow-up in my office as well as pulmonary clinic. Exam Data for Last 24 hours Vital signs and Labs for Last 24 Hours: Temp Pulse Resp BP Pulse Ox 97.4 F L 77 20 155/77 H 97 12/30/22 07:33 12/30/22 10:15 12/30/22 07:33 12/30/22 07:33 12/30/22 10:15 Laboratory Results - last 24 hr 12/29/22 11:55: WBC 9.1, RBC 5.16, Hgb 16.3, Hct 48.3, MCV 93.5, MCH 31.6 H, MCHC 33.8, RDW 13.3, Plt Count 325, MPV 8.3, Neut % (Auto) 67.0, Lymph % (Auto) 17.3, [place] % (Auto) 7.4, Eos % (Auto) 6.7, Baso % (Auto) 1.6, Neut # (Auto) 6.1, Lymph # (Auto) 1.6, [place] # (Auto) 0.7, Eos # (Auto) 0.6 H, Baso # (Auto) 0.2 12/29/22 11:55: Sodium 136, Potassium 4.0, Chloride 103, Carbon Dioxide 26, Anion Gap 11.0, BUN 6 L, Creatinine 0.60 L, Estimated Creat Clear 86, Estimated GFR 132, Est GFR ( Amer) 160, Glucose 135 H, Calcium 8.7, Total Bilirubin 0.5, AST 32, ALT 31, Alkaline Phosphatase 89, Troponin I < 0.01, Total Protein 7.1, Albumin 4.1, Globulin 3.0, Albumin/Globulin Ratio 1.4 12/29/22 11:55: Lactate 1.4 12/29/22 11:55: SARS-CoV-2 (PCR) Not detected, Influenza A Untype (PCR) Not detected, Influenza Type B (PCR) Not detected 12/29/22 11:55: NT-Pro-B Natriuret Pep 81.2 12/29/22 11:55: PT 10.7, INR 0.99 12/29/22 11:55: Chlamy pneumoniae PCR Not detected, Adenovirus (PCR) Not detected, B. pertussis DNA (PCR) Not detected, Coronavirus OC43 (PCR) Not detected, Coronavirus HKU1 (PCR) Not detected, Coronavirus 229E (PCR) Not detected, SARS-CoV-2 (PCR) Not detected, Coronavirus NL63 (PCR) Not detected, Human Metapneumovir PCR Not detected, Influenza A (H1) PCR Not detected, Influ A (H1N1/09) PCR Not detected, Influenza A (H3) PCR Not detected, Influenza Type A (PCR) Not detected, Influenza Type B (PCR) Not detected, M. pneumoniae (PCR) Not detected, Parainfluenza 1 (PCR) Not detected, Parainfluenza 2 (PCR) Not detected, Parainfluenza 3 (PCR) Not detected, Parainfluenza 4 (PCR) Not detected, RSV (PCR) Not detected, Entero/Rhino (PCR) Not detected 12/30/22 06:35: WBC 18.5 H D, RBC 5.05, Hgb 15.8, Hct 48.8, MCV 96.6 H, MCH 31.3 H, MCHC 32.4, RDW 13.3, Plt Count 340, MPV 8.5, Neut % (Auto) 86.0 H, Lymph % (Auto) 8.3 L, [place] % (Auto) 4.4, Eos % (Auto) 1.0, Baso % (Auto) 0.3, Neut # (Auto) 15.9 H, Lymph # (Auto) 1.5, [place] # (Auto) 0.8, Eos # (Auto) 0.2, Baso # (Auto) 0.1, Total Counted 100, Neutrophils % (Manual) 83 H, Lymphocytes % (Manual) 13, Monocytes % (Manual) 4, Platelet Estimate Normal, RBC Morphology Normal 12/30/22 06:35: Sodium 134
--- NOTE | 2022-12-30 11:01 | HMH.PHAINT1 ---
Pharmacy Intervention Comments: Discussed discharge medications with patient. Patient verbalized understanding and had no further questions at this time.
--- NOTE | 2022-12-31 14:13 | CARE MANAGER ---
Patient states he is doing better than he was. 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 DARYL Mcfarlane
== END 2022-12-30 13:11 | disposition home or self-care (01) ==
LOC: ER 16:33 → 2ND 16:57
PROVIDERS: Admitting Provider Internal Medicine Adolescent Medicine; Emergency Provider Emergency Medicine; PCP Internal Medicine Adolescent Medicine; Visit Provider Internal Medicine Adolescent Medicine
DX: R53.83 Other fatigue (principal); J18.9 Pneumonia, unspecified organism; J44.1 Chronic obstructive pulmonary disease with (acute) exacerbation; J96.01 Acute respiratory failure with hypoxia; Z87.891 Personal history of nicotine dependence; Z95.1 Presence of aortocoronary bypass graft; Z79.01 Long term (current) use of anticoagulants; J84.89 Other specified interstitial pulmonary diseases; Z79.899 Other long term (current) drug therapy; R06.9 Unspecified abnormalities of breathing; Z20.822 Contact with and (suspected) exposure to COVID-19
CPT/HCPCS: G0378; 36415; 71046; 71275; 80048; 80053; 83605; 83880; 84484; 85007; 85025; 85610; 87040; 87070; 87205; 87581; 87632; 87798; 93005; 93306; 94640; 99285; C9803; J0456; J0696; Q9967; U0003; U0005

== ENCOUNTER 2023-11-11 16:55 | Emergency (ER) | payer MEDICARE, SELFPAY ==
[2023-11-11] VITALS (7 sets, daily range): BP systolic 137–160; BP diastolic 74–116; PULSE 67–88; RESP 18–20; TEMP 36.4–36.7; O2SAT 90–95; BMI 25.0
--- NOTE | 2023-11-11 16:56 | XR_ITS ---
PROCEDURE INFORMATION: Exam: XR Chest Exam date and time: 11/11/2023 5:02 PM Age: 73 years old Clinical indication: Cough and shortness of breath and other: Hypoxemia; Additional info: SOA, hypoxemia TECHNIQUE: Imaging protocol: Radiologic exam of the chest. Views: 1 view. COMPARISON: CT ANGIO CHEST PE PROTOCOL 12/29/2022 2:56 PM FINDINGS: Tubes, catheters and devices: Left chest wall pacemaker in place. Lungs: Mild bibasilar scarring versus atelectasis. No consolidation. Pleural spaces: Normal No pleural effusion. No pneumothorax. Heart/Mediastinum: No cardiomegaly. Pacer leads extend to the level of the right atrium and right ventricle. Vasculature: Mildly atherosclerotic thoracic aorta. Bones/joints: Status post sternotomy. IMPRESSION: Mild bibasilar scarring versus atelectasis. No consolidation.
[2023-11-11] MEDS: METHYLPREDNISOLONE SOD SUCC 125MG VIAL 125 MG IV (17:13)
[2023-11-11] MEDS: IPRATROPIUM/ALBUTEROL 3 ML NEB 6 ML IH (17:13)
[2023-11-11] MEDS: ASPIRIN 81MG CHEWABLE TABLET 324 MG PO (17:13)
--- NOTE | 2023-11-11 17:13 | ECG_ITS ---
APPROVED REPORT Exam: Resting ECG HR:67 bpm ECG Measurements Heart Rate 67 AXES AK 181 P 35 QRSd 96 QRS 80 QT 388 T 67 QTc 404 Conclusion SINUS RHYTHM NORMAL ECG UNCONFIRMED REPORT Electronically signed by : Quinton Temple MD 11/12/2023 08:52:00
[2023-11-11 17:14] LABS: VBG Base Excess -1.3 mmol/L (-2.4-2.3); VBG HCO3 23.1 mmol/L (23-30); VBG Oxygen Saturation 91.6 % (50-70); VBG PCO2 35.9 mmol/L (35-51); VBG PH 7.43 mmol/L (7.31-7.41); VBG PO2 60.1 mmol/L (28-40); VBG Total CO2 24.2 mmol/L (23-27)
[2023-11-11 17:18] LABS: Coronavirus 19, PCR Not Detected (NotDetected); Influenza A, PCR Not Detected (NotDetected); Influenza B, PCR Not Detected (NotDetected)
[2023-11-11 17:18] LABS: Chloride 105 mmol/L (98-107)
[2023-11-11 17:19] LABS: Potassium 4.3 mmoL/L (3.5-5.1); Sodium 138 mmol/L (136-145)
[2023-11-11 17:20] LABS: Basophils # 0.1 K/mm3 (0-0.2); Basophils % 1.3 % (0.1-2.0); Eosinophils # 0.6 K/mm3 (0.0-0.4); Hematocrit 53.1 % (42.0-52.0); Hemoglobin 17.9 g/dL (14.1-18.0); Lymphocytes # 2.1 K/mm3 (0.7-4.5); Lymphocytes % 19.4 % (10-50); Mean Corpuscular HGB Conc 33.7 g/dL (31.8-35.4); Mean Corpuscular Hemoglobin 31.7 pg (27.0-31.2); Mean Corpuscular Volume 94.1 fl (80-94); Mean Platelet Volume 8.2 fl (7.4-10.4); Monocytes % 9.2 % (1.7-9.3); Neutrophils # 6.8 K/mm3 (1.8-7.8); Platelet Count 288 K/mm3 (142-424); Red Blood Count 5.64 M/mm3 (4.60-6.20); Red Cell Distribution Width 12.8 % (11.5-17.5); White Blood Count 10.6 K/mm3 (4.8-10.8)
[2023-11-11 17:21] LABS: Alanine Aminotransferase 36 U/L (12-78); Aspartate Amino Transferase 36 U/L (17-59); Blood Urea Nitrogen 17 mg/dl (9-20); Creatinine Clearance Estimated 78 mL/min (50-200); Estimated Glomerular Filt Rate 111 ml/min (>60); GFR (African American) 134 ML/MIN (>60)
[2023-11-11 17:22] LABS: Albumin Level 4.3 g/dl (3.5-5.0); Albumin/Globulin Ratio 1.3 (1.1-1.8); Alkaline Phosphatase 82 U/L (38-126); Anion Gap 10.3 mEq/L (5-15); Bilirubin,Total 0.7 mg/dl (0.2-1.3); Calcium 9.6 mg/dl (8.4-10.2); Carbon Dioxide 27 mmol/L (22.0-30.0); Globulin 3.2 g/dL (1.3-3.2); Glucose 95 mg/dl (74-100); Total Protein,Serum 7.5 g/dl (6.3-8.2)
[2023-11-11 17:27] LABS: Activated Partial Thrombo Time 40.2 seconds (22.8-30.6)
--- NOTE | 2023-11-11 17:31 | PC.NURSE ---
Dr. Del Castillo at [facility] for pt eval
[2023-11-11 17:32] LABS: NT Pro Brain Natriuretic Pep. 286 pg/mL (0-125)
[2023-11-11 17:35] LABS: Troponin I < 0.01 ng/ml (0.00-0.034)
--- NOTE | 2023-11-11 17:50 | CT_ITS ---
PROCEDURE INFORMATION: Exam: CTA Chest With Contrast Exam date and time: 11/11/2023 6:07 PM Age: 73 years old Clinical indication: Shortness of breath and other: Chest pain; Additional info: ravi BRADSHAW TECHNIQUE: Imaging protocol: Computed tomographic angiography of the chest with contrast. Exam focused on the arteries. 3D rendering (Not supervised by radiologist): MIP and/or 3D reconstructed images were created by the technologist. Radiation optimization: All CT scans at this facility use at least one of these dose optimization techniques: automated exposure control; mA and/or kV adjustment per patient size (includes targeted exams where dose is matched to clinical indication); or iterative reconstruction. Contrast material: ISOVUE 370; Contrast volume: 70 ml; Contrast route: INTRAVENOUS (IV); COMPARISON: CT ANGIO CHEST PE PROTOCOL 12/29/2022 2:56 PM FINDINGS: Tubes, catheters and devices: Left chest wall pacemaker in place. Pulmonary arteries: Normal. No pulmonary emboli. Aorta: Mild atherosclerotic plaque in the thoracic aorta and proximal arch vessels without aneurysm or dissection. Lungs: [id number] emphysema. Diffuse bronchial wall thickening. Mild bilateral lower lobe bronchiectasis. 6.3 cm subpleural bleb in the anterior left lower lobe. Bilateral dependent ground-glass opacities. Right lower lobe calcified granuloma. Pleural spaces: Unremarkable. No pneumothorax. No pleural effusion. Heart: No cardiomegaly or pericardial effusion. Pacer leads extend to the right atrium and right ventricle. Coronary arteries: Status post CABG. Lymph nodes: Calcified subcarinal and right hilar lymph nodes. Unchanged scattered subcentimeter lymph nodes. No adenopathy. Spleen: Calcified granulomas in the spleen. No splenomegaly. Bones/joints: Status post sternotomy. Mild thoracic spine degenerative change. Soft tissues: Unremarkable. IMPRESSION: 1. No evidence of a pulmonary embolism. 2. Diffuse bilateral bronchial wall thickening and mild bilateral lower lobe bronchiectasis. 3. Mild/moderate emphysema. Large left lower lobe subpleural bleb. 4. Dependent ground-glass densities in the lungs are probably atelectasis. 5. Prior granulomatous disease. 6. Status post CABG. COMMENTS: The presence of pulmonary emphysema on CT is an independent risk factor for lung cancer. In the absence of a history or active diagnosis of lung cancer, it is recommended that this patient with emphysema be evaluated for enrollment in a low dose CT lung cancer screening program.
--- NOTE | 2023-11-11 17:58 | [facility].EDCP ---
Discharge Plan Disposition Patient Disposition: Home, Self-Care Chief Complaint: Shortness of Breath/Dyspnea Prescriptions Prescriptions: No Action albuterol sulfate 90 mcg/actuation HFA aerosol inhaler 2 inh inhalation QID PRN (Reason: shortness of breath or wheezing) 90 Days Qty: 8.5 2RF Trelegy Ellipta 100-62.5-25 mcg blister with device 1 inh inhalation DAILY 90 Days Qty: 90 3RF ipratropium-albuterol 0.5 mg-3 mg(2.5 mg base)/3 mL solution for nebulization 3 ml inhalation QID PRN (Reason: shortness of breath or wheezing) 90 Days Qty: 270 3RF tamsulosin 0.4 mg capsule 0.4 mg PO DAILY albuterol sulfate 90 mcg/actuation HFA aerosol inhaler 1 puff INHALATION QIDP PRN (Reason: breathing problems) losartan-hydrochlorothiazide 50-12.5 mg tablet 1 tab PO DAILY pregabalin 150 mg capsule 450 mg PO HS Rx Instructions: 3 tabs po hs Trelegy Ellipta 100-62.5-25 mcg Blister With Device 1 inh INHALATION HS ipratropium-albuterol 0.5 mg-3 mg(2.5 mg base)/3 mL solution for nebulization 3 ml inhalation TID PRN (Reason: wheezing) 30 Days Qty: 90 1RF prednisone 20 mg tablet 40 mg PO DAILY 7 Days Qty: 14 0RF Referrals Follow up/Referrals: Quinton Temple MD [Primary Care Provider] - See instructions Micah Loera MD [Physician] - See instructions Activity Restrictions/Add. Instructions Additional Instructions/Restrictions: Contact Dr. Loera clinic to further follow-up for your COPD and oxygen needs. Call your family doctor to establish care for this visit to the emergency department and schedule follow-up within 48 hours to ensure improvement. If you have any worsening of your condition or any other concerning signs or symptoms, return to the emergency department or your primary care doctor for further evaluation. Clinical Impressions Clinical Impression: COPD (chronic obstructive pulmonary disease), Bleb, lung, Chronic hypoxemic respiratory failure [facility]charge ED [facility]: [facility] General Chief Complaint: Shortness of Breath/Dyspnea Stated Complaint: sent by Windy BRADSHAW Time Seen by Provider: 11/11/23 16:56 Mode of Arrival: Wheelchair Source of Information: Patient Limitations: No Limitations Description of Symptoms (Recalled from ER Triage Doc. by RN): pt sent from dr cohen office for further workup. staff report pt was 91% on room air. pt states she has been short of breath for a couple of days . pt reports productive cough. upon arrival pt 92% on room air. pt placed on 2L NC. History of Present Illness HPI narrative: 73-year-old male history of hypertension, hyperlipidemia, CAD status post three-vessel CABG, A-fib status post ablation not currently on anticoagulation, COPD not currently smoking or on home oxygen presenting with shortness of breath. Started 2 days ago. Not doing anything in particular when it started. Since that time, it has been progressive and he has been unable to catch his breath. Denies chest pain, nausea or vomiting, diaphoresis, but feels unable to catch his breath. Went to family doctor today, sent down from clinic to the emergency department for hypoxemia and work of breathing. Related Data Home Medications Medication Instructions Recorded Confirmed albuterol sulfate 90 mcg/actuation 1 puff inhalation QIDP PRN 12/29/22 01/12/23 aerosol inhaler breathing problems fluticasone fur. 100 mcg-umeclid 1 inh inhalation HS COPD 12/29/22 01/12/23 62.5 mcg-vilant 25 mcg inhalat.powder (Trelegy Ellipta) losartan 50 mg-hydrochlorothiazide 1 tab PO DAILY High blood pressure 12/29/22 01/12/23 12.5 mg tablet pregabalin 150 mg capsule 450 mg PO HS Pain 12/29/22 01/12/23 tamsulosin 0.4 mg capsule 0.4 mg PO DAILY Prostate 12/29/22 01/12/23 Previous Rx's Medication Instructions Recorded ipratropium 0.5 mg-albuterol 3 mg 3 ml inhalation TID PRN wheezing 12/30/22 (2.5 mg base)/3 mL nebulization 30 days #90 mL soln prednisone 20 mg tablet 40 mg PO DAILY 7 days #14 tabs 12/30/22 albuterol sulfate 90 mcg/actuation 2 inh inhalation QID PRN shortness 01/12/23 aerosol inhaler of breath or wheezing 90 days #8.5 grams fluticasone fur. 100 mcg-umeclid 1 inh inhalation DAILY 90 days #90 01/12/23 62.5 mcg-vilant 25 mcg ea inhalat.powder (Trelegy Ellipta) ipratropium 0.5 mg-albuterol 3 mg 3 ml inhalation QID PRN shortness 01/12/23 (2.5 mg base)/3 mL nebulization of breath or wheezing 90 days #270 soln mL Allergies Allergy/AdvReac Type Severity Reaction Status Date / Time Penicillins Allergy Unknown DOESN'T Verified 01/12/23 13:18 WANT BECAUSE DAD IS ALLERGIC TO IT [facility] Disclaimer: The information contained in this section may have been updated after the patient was seen, as this information can be updated by other users. Medical History (Updated 11/11/23 @ 19:22 by Juan Del Castillo MD) Acute carpal tunnel syndrome COPD (chronic obstructive pulmonary disease) COPD exacerbation Dyspnea on exertion Encounter for screening for malignant neoplasm of lung in current smoker with 30 pack year history or greater Hilar lymphadenopathy History of smoking 30 or more pack years ILD (interstitial lung disease) Surgical History Previous back surgery Family History Other No significant family history Social History (Updated 01/12/23 @ 13:21 by Josselin Arroyo) Smoking Status: Former smoker alcohol intake: current current occupational status: retired Travel in the last 8 weeks: None housing: house lives independently: Yes marital status: ROS Obtained: Yes All systems reviewed & no additional complaints except as documented Physical Exam General General appearance: alert Neck Neck exam: Present trachea midline Chest Chest inspection: Present normal inspection and symmetric chest wall rise Respiratory Respiratory exam: Present accessory muscle use and other (Tachypnea); Absent normal lung sounds bilaterally, respiratory distress, wheezes, stridor or prolonged expiratory phase Cardiovascular Cardiovascular exam: Present regular rate and normal rhythm Extremities Exam Extremities exam: Absent edema Neurological Exam Neurological exam: Present alert, oriented X3 and CN II-XII intact Skin Skin exam: Present warm and dry; Absent cyanosis, diaphoresis or pallor HEART Score HEART Score HEART Score assessment performed?: Yes History (anamnesis): Moderately suspicious ECG: Normal Age: >65 years Risk factors: 3 or more risk factors Troponin: </= normal limit HEART Score: 5 Critical Care Critical Care Time Critical Care Time: No Medical Decision Making Medical Records Medical records reviewed: Yes I reviewed the patient's medical records. Teofilo Inquiry Pt receiving controlled substance: No Teofilo was queried for this patient: No Vital Signs Vital Signs: 11/11/23 16:56 11/11/23 17:11 11/11/23 17:31 Temperature 97.6 F Temperature Source Oral Pulse Rate 73 87 Pulse Rate [Left Radial] 88 Respiratory Rate 18 18 Blood Pressure 149/116 H 137/90 Blood Pressure [Right Arm] 149/116 H Blood Pressure Mean 133 115 Blood Pressure Mean [Right Arm] 127 02 Sat by Pulse Oximetry 92 L 95 93 L Oxygen Delivery Method Room Air Nasal Cannula Nasal Cannula Oxygen Flow Rate (LPM) 2 2 11/11/23 18:01 11/11/23 18:31 11/11/23 19:00 Temperature Temperature Source Pulse Rate 69 68 67 Pulse Rate [Left Radial] Respiratory Rate 20 20 Blood Pressure 141/75 H 160/74 H 150/78 H Blood Pressure [Right Arm] Blood Pressure Mean 104 99 Blood Pressure Mean [Right Arm] 02 Sat by Pulse Oximetry 91 L 90 L 94 L Oxygen Delivery Method Nasal Cannula Nasal Cannula Nasal Cannula Oxygen Flow Rate (LPM) 2 2 2 Lab Data Labs: Lab Results 11/11/23 17:05: WBC 10.6, RBC 5.64, Hgb 17.9, Hct 53.1 H, MCV 94.1 H, MCH 31.7 H, MCHC 33.7, RDW 12.8, Plt Count 288, MPV 8.2, Neut % (Auto) 64.0, Lymph % (Auto) 19.4, Morrill % (Auto) 9.2, Eos % (Auto) 6.0, Baso % (Auto) 1.3, Neut # (Auto) 6.8, Lymph # (Auto) 2.1, Morrill # (Auto) 1.0, Eos # (Auto) 0.6 H, Baso # (Auto) 0.1, APTT 40.2 H, Sodium 138, Potassium 4.3, Chloride 105, Carbon Dioxide 27, Anion Gap 10.3, BUN 17, Creatinine 0.70, Estimated Creat Clear 78, Estimated GFR 111, Est GFR ( Amer) 134, Glucose 95, Calcium 9.6, Total Bilirubin 0.7, AST 36, ALT 36, Alkaline Phosphatase 82, Troponin I < 0.01, NT-Pro-B Natriuret Pep 286 H, Total Protein 7.5, Albumin 4.3, Globulin 3.2, Albumin/Globulin Ratio 1.3 11/11/23 17:13: SARS-CoV-2 (PCR) Not detected, Influenza A Untype (PCR) Not detected, Influenza Type B (PCR) Not detected 11/11/23 17:17: VBG pH 7.43 H, VBG pCO2 35.9, VBG pO2 60.1 H, VBG HCO3 23.1, VBG Total CO2 24.2, VBG O2 Saturation 91.6 H, VBG Base Excess -1.3 11/11/23 17:05 11/11/23 17:05 Response Orders (Tests/Meds): ED MEDICATIONS Generic Name Dose Route Start Last Admin Trade Name Freq PRN Reason Stop Dose Admin Iopamidol 70 ml 11/11/23 18:08 11/11/23 18:12 Iopamidol-370 (76%);100ml Bottle IV 11/11/23 18:09 70 ml ONCE ONE Administration Sodium Chloride 50 ml 11/11/23 18:08 11/11/23 18:12 0.9 % Sodium Chloride 50 Ml Vial IV 11/11/23 18:09 50 ml ONCE ONE Administration Sodium Chloride 10 ml 11/11/23 18:08 11/11/23 18:12 Sodium Chloride 0.9% 10ml Syr (Rad Only) IV 11/11/23 18:09 10 ml ONCE ONE Administration Discontinued Medications Generic Name Dose Route Start Last Admin Trade Name Freq PRN Reason Stop Dose Admin Albuterol/Ipratropium 6 ml 11/11/23 16:56 11/11/23 17:13 Ipratropium/Albuterol 3 Ml Neb IH 11/11/23 16:57 6 ml ONCE ONE Administration Aspirin 324 mg 11/11/23 16:56 11/11/23 17:13 Aspirin 81mg Chewable Tablet PO 11/11/23 16:57 324 mg ONCE ONE Administration Methylprednisolone Sodium Succinate 125 mg 11/11/23 16:56 11/11/23 17:13 Methylprednisolone Sod Succ 125mg Vial IV 11/11/23 16:57 125 mg ONCE ONE Administration ORDERS Category Date Time Status CT angio chest PE protocol Stat Cat Scan 11/11/23 17:50 Completed XR chest portable Stat Exams 11/11/23 16:56 Completed Brain Natriuretic Peptide Stat Lab 11/11/23 17:05 Completed Complete Blood Count Auto Diff Stat Lab 11/11/23 17:05 Completed Comprehensive Metabolic Panel Stat Lab 11/11/23 17:05 Completed D-Dimer Stat Lab 11/11/23 17:05 Received PTT [Activated Partial Thrombo Time] Stat Lab 11/11/23 17:05 Completed Rapid PCR Covid and Flu A/B Stat Lab 11/11/23 17:13 Completed Troponin I Q3H Lab 11/11/23 20:00 Ordered Troponin I Q3H Lab 11/11/23 23:00 Ordered Troponin I Stat Lab 11/11/23 17:05 Completed Venous Blood Gas Stat RT 11/11/23 17:17 Completed MDM Narrative Medical Decision Narrative: 73-year-old male history of hypertension, hyperlipidemia, CAD status post three-vessel CABG, A-fib status post ablation not currently on anticoagulation, COPD not currently smoking or on home oxygen presenting with shortness of breath. Started 2 days ago. Not doing anything in particular when it started. Since that time, it has been progressive and he has been unable to catch his breath. Denies chest pain, nausea or vomiting, diaphoresis, but feels unable to catch his breath. Went to family doctor today, sent down from clinic to the emergency department for hypoxemia and work of breathing. It should be noted the patient does not generally follow with family doctor and is not currently taking any medications was complicating care. History was obtained via conversation with patient, primary care provider, family. On arrival, patient hemodynamically stable, alert, oriented x4, appropriate, GCS 15, moving all extremities spontaneously, pupils equal and reactive to light. Full physical exam performed and significant for tachypneic, nontachycardic. Patient has increased work of breathing. On 2 L nasal cannula to saturate greater than 89%. Lungs clear to auscultation bilaterally with no evidence of wheezes or rales. Cardiac exam within normal limits as well. Differential includes ACS, MO, pneumothorax, PE, dissection, pneumothorax, aortic aneurysm, pneumonia, bronchitis, among others. Patient was given aspirin, DuoNeb, Solu-Medrol for symptomatic management and correction of underlying abnormalities. Workup independently interpreted and significant for nonactionable CBC or chemistry. VBG nonactionable. Kidney function normal. BNP negative, Trope negative and COVID/flu/RSV negative. Chest x-ray unremarkable. CT PE without pulmonary embolus, but patient does have a large left lower lobe bleb. See radiology read for full review of final results. Independent interpretation of EKG shows sinus rhythm 67 beats a minute. No ST or T wave changes concerning for acute ischemia. MS, QRS, QT intervals within normal limits. [place] normal. Heart score 5. On reevaluation, patient resting comfortably in bed. Because patient requiring oxygen with no further workup or issues found, [facility] [employer] [facility] was contacted and oxygen was supplied to patient.Given patient presentation, workup, history, this most likely represents COPD with chronic hypoxemic respiratory failure. Because patient at baseline without signs or symptoms of clinical decompensation, deemed appropriate for discharge. Results were relayed to patient who voiced understanding and were agreeable to outpatient management and follow up. At the time of discharge the patient was hemodynamically stable, tolerating PO, and mobilizing appropriately.
[2023-11-11] MEDS: 0.9 % SODIUM CHLORIDE 50 ML VIAL IV (18:12)
[2023-11-11] MEDS: SODIUM CHLORIDE 0.9% 10ML SYR (RAD ONLY) 10 ML IV (18:12)
[2023-11-11] MEDS: IOPAMIDOL-370 (76%);100ML BOTTLE 70 ML IV (18:12)
--- NOTE | 2023-11-11 18:48 | PC.NURSE ---
CALLED [facility] ABOUT HOME [facility]2 FOR PT AND LEFT VOICEMAIL FOR MEDICAL SUPPORT SPECIALIST STAFF TO PLEASE CALL US BACK.
--- NOTE | 2023-11-11 18:53 | PC.NURSE ---
SPOKE TO KHANG WITH [facility] REGARDING HOME O2. STATES HE IS IN [place] AND WILL HEAD THIS WAY.
== END 2023-11-11 19:29 | disposition home or self-care (01) ==
PROVIDERS: Emergency Provider Emergency Medicine; PCP Internal Medicine Adolescent Medicine
DX: J44.9 Chronic obstructive pulmonary disease, unspecified (principal); J96.11 Chronic respiratory failure with hypoxia; I10 Essential (primary) hypertension; E78.5 Hyperlipidemia, unspecified; I25.10 Atherosclerotic heart disease of native coronary artery without angina pectoris; I48.91 Unspecified atrial fibrillation; Z87.891 Personal history of nicotine dependence
CPT/HCPCS: 71045; 71275; 80053; 82803; 83880; 84484; 85025; 85378; 85730; 87636; 93005; 96374; 99285; Q9967

== ENCOUNTER 2024-04-16 11:28 | Emergency (ER) | payer MEDICARE, SELFPAY ==
[2024-04-16] VITALS (7 sets, daily range): BP systolic 131–151; BP diastolic 68–92; PULSE 58–88; RESP 13–22; TEMP 36.6–36.7; O2SAT 90–97; BMI 24.4
--- NOTE | 2024-04-16 11:36 | ECG_ITS ---
APPROVED REPORT Exam: Resting ECG HR:65 bpm ECG Measurements Heart Rate 65 AXES [place] 182 P 79 QRSd 102 QRS 90 QT 383 T 67 QTc 395 Conclusion SINUS RHYTHM NORMAL ECG Electronically signed by : YEIMI JANG, 04/16/2024 15:45:27
--- NOTE | 2024-04-16 11:44 | PC.NURSE ---
DR JANG AT BEDSIDE
--- NOTE | 2024-04-16 11:51 | XR_ITS ---
FINAL REPORT CLINICAL HISTORY: copd cough COMPARISON: 11/11/2023 FINDINGS: 2 views of the chest were obtained . Patient is status post CABG. Left-sided pacemaker is in place. The heart is normal in size. The mediastinum is within normal limits. There is a new nodular density at the left lung base, suspect nipple shadow. There is no pneumothorax. Osseous structures are unremarkable. IMPRESSION: No acute cardiopulmonary process. New nodular density at the left lung base, suspect nipple shadow. Reviewed, Interpreted and Dictated by Carlo Diaz MD Transcribed by Nereida Eckert Authenticated and [facility]
--- NOTE | 2024-04-16 11:53 | ED_ITS ---
Discharge Plan Disposition Patient Disposition: Home, Self-Care Prescriptions Prescriptions: New azithromycin [Zithromax Z-Fausto] 250 mg tablet 250 mg PO DAILY 4 Days Qty: 4 0RF Rx Instructions: start on day 2 of therapy prednisone 50 mg tablet 50 mg PO DAILY 5 Days Qty: 5 0RF No Action albuterol sulfate 90 mcg/actuation HFA aerosol inhaler 2 inh inhalation QID PRN (Reason: shortness of breath or wheezing) 90 Days Qty: 8.5 2RF Trelegy Ellipta 100-62.5-25 mcg blister with device 1 inh inhalation DAILY 90 Days Qty: 90 3RF ipratropium-albuterol 0.5 mg-3 mg(2.5 mg base)/3 mL solution for nebulization 3 ml inhalation QID PRN (Reason: shortness of breath or wheezing) 90 Days Qty: 270 3RF tamsulosin 0.4 mg capsule 0.4 mg PO DAILY albuterol sulfate 90 mcg/actuation HFA aerosol inhaler 1 puff INHALATION QIDP PRN (Reason: breathing problems) losartan-hydrochlorothiazide 50-12.5 mg tablet 1 tab PO DAILY pregabalin 150 mg capsule 450 mg PO HS Rx Instructions: 3 tabs po hs Trelegy Ellipta 100-62.5-25 mcg Blister With Device 1 inh INHALATION HS ipratropium-albuterol 0.5 mg-3 mg(2.5 mg base)/3 mL solution for nebulization 3 ml inhalation TID PRN (Reason: wheezing) 30 Days Qty: 90 1RF prednisone 20 mg tablet 40 mg PO DAILY 7 Days Qty: 14 0RF Referrals Follow up/Referrals: Quinton Temple MD [Primary Care Provider] - See instructions Activity Restrictions/Add. Instructions Additional Instructions/Restrictions: At this time it was felt you are safe to be discharged home. If new or worsening symptoms please do not hesitate to return the emergency department. Please take your medications as prescribed and follow-up with Dr. Temple if symptoms or not resolving. Please take your breathing treatments every 4 hours as discussed. Clinical Impressions Clinical Impression: Acute exacerbation of chronic obstructive pulmonary disease Discharge ED Provider: Donell Kenney General Chief Complaint: Shortness of Breath/Dyspnea Stated Complaint: soa cough congestion Time Seen by Provider: 04/16/24 11:30 Mode of Arrival: Ambulatory Source of Information: Patient Limitations: No Limitations Description of Symptoms (Recalled from ER Triage Doc. by RN): pt presents to ED with c/o shortness of air and cough. symptoms ongoing for the past week. pt was diagnosed with pna two weeks ago, pt reports feeling better with medications but this past weekend pt reports beginning to feel worse History of Present Illness HPI narrative: Patient is a 73-year-old male past medical history of COPD not on home oxygen, coronary disease status post bypass graft with failure with collateral circulation, previous pacemaker that is not currently functioning who presents emergency department for evaluation of shortness of breath and cough. Patient was diagnosed with pneumonia by PCP and was prescribed unknown course of antibiotics which he completed, there seem to be a 4-day interval resolution however he had significant worsening of symptoms over the last couple of days with productive cough. Patient no longer smokes. There is slight substernal chest pain that is minimal and not reported to radiate anywhere. No falls. Due to persistent symptoms he presents here for continued evaluation. Related Data Home Medications Medication Instructions Recorded Confirmed albuterol sulfate 90 mcg/actuation 1 puff inhalation QIDP PRN 12/29/22 01/12/23 aerosol inhaler breathing problems fluticasone fur. 100 mcg-umeclid 1 inh inhalation HS COPD 12/29/22 01/12/23 62.5 mcg-vilant 25 mcg inhalat.powder (Trelegy Ellipta) losartan 50 mg-hydrochlorothiazide 1 tab PO DAILY High blood pressure 12/29/22 01/12/23 12.5 mg tablet pregabalin 150 mg capsule 450 mg PO HS Pain 12/29/22 01/12/23 tamsulosin 0.4 mg capsule 0.4 mg PO DAILY Prostate 12/29/22 01/12/23 Previous Rx's Medication Instructions Recorded ipratropium 0.5 mg-albuterol 3 mg 3 ml inhalation TID PRN wheezing 12/30/22 (2.5 mg base)/3 mL nebulization 30 days #90 mL soln prednisone 20 mg tablet 40 mg (2 x 20 mg) PO DAILY 7 days 12/30/22 #14 tabs albuterol sulfate 90 mcg/actuation 2 inh inhalation QID PRN shortness 01/12/23 aerosol inhaler of breath or wheezing 90 days #8.5 grams fluticasone fur. 100 mcg-umeclid 1 inh inhalation DAILY 90 days #90 01/12/23 62.5 mcg-vilant 25 mcg ea inhalat.powder (Trelegy Ellipta) ipratropium 0.5 mg-albuterol 3 mg 3 ml inhalation QID PRN shortness 01/12/23 (2.5 mg base)/3 mL nebulization of breath or wheezing 90 days #270 soln mL azithromycin 250 mg tablet 250 mg PO DAILY 4 days #4 tabs 04/16/24 (Zithromax Z-Fausto) prednisone 50 mg tablet 50 mg PO DAILY 5 days #5 tabs 04/16/24 Allergies Allergy/AdvReac Type Severity Reaction Status Date / Time Penicillins Allergy Unknown DOESN'T Verified 01/12/23 13:18 WANT BECAUSE DAD IS ALLERGIC TO IT [facility] Disclaimer: The information contained in this section may have been updated after the patient was seen, as this information can be updated by other users. Medical History (Updated 04/16/24 @ 13:51 by Donell Kenney MD) COPD (chronic obstructive pulmonary disease) Encounter for screening for malignant neoplasm of lung in current smoker with 30 pack year history or greater Dyspnea on exertion Hilar lymphadenopathy History of smoking 30 or more pack years ILD (interstitial lung disease) COPD exacerbation Acute carpal tunnel syndrome Surgical History Previous back surgery Family History Other No significant family history Social History (Updated 01/12/23 @ 13:21 by Josselin Arroyo) Smoking Status: Former smoker alcohol intake: current alcohol intake frequency: holidays/special occasions only current occupational status: retired Travel in the last 8 weeks: None housing: house lives independently: Yes marital status: ROS Obtained: Yes Systems reviewed as appropriate & no additional complaints except as documented Physical Exam General General appearance: alert and in no apparent distress Head Head exam: atraumatic and normocephalic Eye Eye exam: Present PERRL ENT ENT exam: Present mucous membranes moist Neck Neck exam: Present normal inspection Chest Chest inspection: Present normal inspection and symmetric chest wall rise Respiratory Respiratory exam: Present respiratory distress, wheezes, accessory muscle use and prolonged expiratory phase Cardiovascular Cardiovascular exam: Present regular rate and normal rhythm Abdominal Exam Abdominal exam: Present soft; Absent tenderness Extremities Exam Extremities exam: Present normal inspection Neurological Exam Neurological exam: Present alert Psychiatric Psychiatric exam: Present normal affect Skin Skin exam: Present warm and dry HEART Score HEART Score HEART Score assessment performed?: Yes History (anamnesis): Moderately suspicious ECG: Normal Age: >65 years Risk factors: Atherosclerosis history Troponin: </= normal limit HEART Score: 5 Critical Care Critical Care Time Critical Care Time: No Medical Decision Making Teofilo Inquiry Pt receiving controlled substance: No Vital Signs Vital Signs: 04/16/24 11:29 04/16/24 11:33 04/16/24 12:00 Temperature 97.9 F Temperature Source Oral Pulse Rate 77 66 Pulse Rate [Left Radial] 88 Respiratory Rate 22 Blood Pressure 151/92 H 147/73 H Blood Pressure [Right Arm] 151/92 H Blood Pressure Mean 98 107 Blood Pressure Mean [Right Arm] 111 02 Sat by Pulse Oximetry 93 L 94 L 94 L Oxygen Delivery Method Room Air Room Air Room Air 04/16/24 12:33 04/16/24 13:13 Temperature Temperature Source Pulse Rate 58 L 71 Pulse Rate [Left Radial] Respiratory Rate Blood Pressure 143/75 H 131/68 Blood Pressure [Right Arm] Blood Pressure Mean 97 97 Blood Pressure Mean [Right Arm] 02 Sat by Pulse Oximetry 97 90 L Oxygen Delivery Method Lab Data Labs: Lab Results 04/16/24 11:42: WBC 8.5, RBC 5.13, Hgb 16.4, Hct 49.8, MCV 97.2 H, MCH 31.9 H, MCHC 32.9, RDW 13.4, Plt Count 291, MPV 8.3, Neut % (Auto) 61.9, Lymph % (Auto) 20.1, Rhea % (Auto) 7.1, Eos % (Auto) 9.0, Baso % (Auto) 1.8, Neut # (Auto) 5.3, Lymph # (Auto) 1.7, Rhea # (Auto) 0.6, Eos # (Auto) 0.8 H, Baso # (Auto) 0.2, Sodium 138, Potassium 4.2, Chloride 101, Carbon Dioxide 30, Anion Gap 11.2, BUN 10, Creatinine 0.80, Estimated Creat Clear 76, Estimated GFR 95, Est GFR ( Amer) 115, Glucose 126 H, Calcium 9.9, Total Bilirubin 0.7, AST 40, ALT 38, Alkaline Phosphatase 66, Troponin I < 0.01, Total Protein 7.0, Albumin 4.2, Globulin 2.8, Albumin/Globulin Ratio 1.5 04/16/24 11:51: VBG pH 7.37, VBG pCO2 44.2, VBG pO2 38.6, VBG HCO3 24.7, VBG Total CO2 26.1, VBG O2 Saturation 73.2 H, VBG Base Excess -0.6, VBG Lactic Acid 2.4 H 04/16/24 11:42 04/16/24 11:42 Response Orders (Tests/Meds): ED MEDICATIONS Discontinued Medications Generic Name Dose Route Start Last Admin Trade Name Freq PRN Reason Stop Dose Admin Albuterol/Ipratropium 9 ml 04/16/24 11:51 04/16/24 12:19 Ipratropium/Albuterol 3 Ml Neb IH 04/16/24 11:52 9 ml ONCE ONE Administration Azithromycin 500 mg/ Sodium 250 mls @ 250 mls/hr 04/16/24 11:52 04/16/24 12:19 Chloride IV 04/16/24 11:53 250 mls/hr ONCE ONE Administration Methylprednisolone Sodium Succinate 125 mg 04/16/24 11:51 04/16/24 12:19 Methylprednisolone Sod Succ 125mg Vial IV 04/16/24 11:52 125 mg ONCE ONE Administration ORDERS Category Date Time Status CXR 2 view (NOT portable) [XR chest 2V] Stat Exams 04/16/24 11:51 Taken CBC w/Auto Diff [Complete Blood Count Auto Diff] Stat Lab 04/16/24 11:42 Completed CMP [Comprehensive Metabolic Panel] Stat Lab 04/16/24 11:42 Completed Trop I [Troponin I] Stat Lab 04/16/24 11:42 Completed Troponin I Q3H Lab 04/16/24 15:00 Ordered Troponin I Q3H Lab 04/16/24 18:00 Ordered VBG [Venous Blood Gas] Stat RT 04/16/24 11:51 Completed ECG Data Tracing #1: ECG Narrative: Independently interpreted by me, rate of 65, rhythm is regular, no ST elevation in anatomical contiguous leads, QTc 395. MDM Narrative Medical Decision Narrative: In summary patient is a 73-year-old male with past medical history described above who presents emergency department for evaluation of shortness of breath, cough, slight chest pain. Patient is hemodynamically stable nontoxic-appearing upon arrival, afebrile. Patient has severely decreased air movement in all lung alvares with tight wheezing, no significant tachycardia, no hypoxia upon initial evaluation. Differential includes COPD, atypical ACS, pneumonia, among others. Workup will be conducted with hematologic labs, chest x-ray, EKG, troponin, VBG. Initial inventions include methylprednisolone, DuoNebs x 3, azithromycin. Workup reviewed by me, hematologic labs are nonactionable, no significant leukocytosis, compensated acid-base status without evidence of hypercarbia, no NARAYAN or critical electrolyte abnormality initial troponin undetectably low. Chest x-ray informally interpreted by me, right perihilar opacity, no dense lobar pneumonia. Given the patient had pneumonia and treated with Augmentin already I will just continue anti-inflammatory and atypical coverage with azithromycin on outpatient basis. Upon repeat evaluation patient was well- appearing, no significant tachypnea, continue to saturate greater than 90% on room air, resolution of wheezing and significant improved airflow. Patient already has controlled medicine at home, appropriate DuoNebs at home. Given this he will be discharged with a course of steroids and the azithromycin and mentioned above. He was given return precautions and verbalized understanding.
[2024-04-16 12:02] LABS: VBG Base Excess -0.6 mmol/L (-2.4-2.3); VBG HCO3 24.7 mmol/L (23-30); VBG Oxygen Saturation 73.2 % (50-70); VBG PCO2 44.2 mmol/L (35-51); VBG PH 7.37 mmol/L (7.31-7.41); VBG PO2 38.6 mmol/L (28-40); VBG Total CO2 26.1 mmol/L (23-27)
[2024-04-16 12:03] LABS: Basophils # 0.2 K/mm3 (0-0.2); Basophils % 1.8 % (0.1-2.0); Eosinophils # 0.8 K/mm3 (0.0-0.4); Hematocrit 49.8 % (42.0-52.0); Hemoglobin 16.4 g/dL (14.1-18.0); Lymphocytes # 1.7 K/mm3 (0.7-4.5); Lymphocytes % 20.1 % (10-50); Mean Corpuscular HGB Conc 32.9 g/dL (31.8-35.4); Mean Corpuscular Hemoglobin 31.9 pg (27.0-31.2); Mean Corpuscular Volume 97.2 fl (80-94); Mean Platelet Volume 8.3 fl (7.4-10.4); Monocytes # 0.6 K/mm3 (0.1-1.0); Monocytes % 7.1 % (1.7-9.3); Neutrophils # 5.3 K/mm3 (1.8-7.8); Neutrophils % 61.9 % (37.0-80.0); Platelet Count 291 K/mm3 (142-424); Red Blood Count 5.13 M/mm3 (4.60-6.20); Red Cell Distribution Width 13.4 % (11.5-17.5); White Blood Count 8.5 K/mm3 (4.8-10.8)
[2024-04-16 12:05] LABS: Lactate Venous 2.4 mmol/L (0.4-2.0)
[2024-04-16] MEDS: AZITHROMYCIN 500 MG in 0.9 % SODIUM CHLORIDE 250 ML 250 MG IV (12:19)
[2024-04-16] MEDS: METHYLPREDNISOLONE SOD SUCC 125MG VIAL 125 MG IV (12:19)
[2024-04-16] MEDS: IPRATROPIUM/ALBUTEROL 3 ML NEB 9 ML IH (12:19)
[2024-04-16 12:22] LABS: Alanine Aminotransferase 38 U/L (12-78); Albumin Level 4.2 g/dl (3.5-5.0); Albumin/Globulin Ratio 1.5 (1.1-1.8); Alkaline Phosphatase 66 U/L (38-126); Anion Gap 11.2 mEq/L (5-15); Aspartate Amino Transferase 40 U/L (17-59); Bilirubin,Total 0.7 mg/dl (0.2-1.3); Blood Urea Nitrogen 10 mg/dl (9-20); Calcium 9.9 mg/dl (8.4-10.2); Carbon Dioxide 30 mmol/L (22.0-30.0); Chloride 101 mmol/L (98-107); Creatinine Clearance Estimated 76 mL/min (50-200); Estimated Glomerular Filt Rate 95 ml/min (>60); GFR (African American) 115 ML/MIN (>60); Globulin 2.8 g/dL (1.3-3.2); Glucose 126 mg/dl (74-100); Potassium 4.2 mmoL/L (3.5-5.1); Sodium 138 mmol/L (136-145)
[2024-04-16 12:37] LABS: Troponin I < 0.01 ng/ml (0.00-0.034)
--- NOTE | 2024-04-16 12:55 | PC.NURSE ---
PT TO CT
[2024-04-16 16:05] LABS: Reflex Lactic Add Lactic Reflex
== END 2024-04-16 14:03 | disposition home or self-care (01) ==
PROVIDERS: Emergency Provider Emergency Medicine; PCP Internal Medicine Adolescent Medicine
DX: J44.1 Chronic obstructive pulmonary disease with (acute) exacerbation (principal); R06.02 Shortness of breath; R05.9 Cough, unspecified; I11.9 Hypertensive heart disease without heart failure; I25.10 Atherosclerotic heart disease of native coronary artery without angina pectoris; Z95.0 Presence of cardiac pacemaker; Z95.1 Presence of aortocoronary bypass graft; Z87.891 Personal history of nicotine dependence
CPT/HCPCS: 71046; 80053; 82803; 84484; 85025; 93005; 96374; 96375; 99284; J0456; J2930; J7030; J7620

== ENCOUNTER 2024-08-06 08:43 | Outpatient (CLI) | payer MEDICARE, SELFPAY ==
[2024-08-06 09:42] LABS: Basophils # 0.1 K/mm3 (0-0.2); Basophils % 1.9 % (0.1-2.0); Eosinophils # 0.4 K/mm3 (0.0-0.4); Eosinophils % 5.1 % (0.1-12.0); Hematocrit 51.9 % (42.0-52.0); Hemoglobin 17.7 g/dL (14.1-18.0); Lymphocytes # 2.5 K/mm3 (0.7-4.5); Lymphocytes % 34.6 % (10-50); Mean Corpuscular HGB Conc 34.1 g/dL (31.8-35.4); Mean Corpuscular Hemoglobin 32.4 pg (27.0-31.2); Mean Corpuscular Volume 94.9 fl (80-94); Mean Platelet Volume 8.3 fl (7.4-10.4); Monocytes # 0.8 K/mm3 (0.1-1.0); Monocytes % 11.9 % (1.7-9.3); Neutrophils # 3.3 K/mm3 (1.8-7.8); Neutrophils % 46.4 % (37.0-80.0); Platelet Count 226 K/mm3 (142-424); Red Blood Count 5.47 M/mm3 (4.60-6.20); Red Cell Distribution Width 12.8 % (11.5-17.5); White Blood Count 7.1 K/mm3 (4.8-10.8)
[2024-08-06 10:07] LABS: Chloride 102 mmol/L (98-107); Potassium 4.8 mmoL/L (3.5-5.1); Sodium 136 mmol/L (136-145)
[2024-08-06 10:10] LABS: Anion Gap 13.8 mEq/L (5-15); Blood Urea Nitrogen 14 mg/dl (9-20); Calcium 10.2 mg/dl (8.4-10.2); Carbon Dioxide 25 mmol/L (22.0-30.0); Estimated Glomerular Filt Rate 95 ml/min (>60); GFR (African American) 115 ML/MIN (>60); Glucose 87 mg/dl (74-100)
== END 2024-08-06 23:59 | disposition home or self-care (01) ==
LOC: LAB 08:44
PROVIDERS: PCP Internal Medicine Adolescent Medicine; Visit Provider Surgery
DX: L03.90 Cellulitis, unspecified (principal)
CPT/HCPCS: 36415; 80048; 85025

== ENCOUNTER 2024-08-08 06:10 | Day surgery (SDC) | payer MEDICARE, SELFPAY ==
[2024-08-07 16:58] VITALS: BMI 27.8
[2024-08-08] VITALS (9 sets, daily range): BP systolic 127–154; BP diastolic 72–90; PULSE 50–65; RESP 14–18; TEMP 36.4–36.8; O2SAT 90–95
--- NOTE | 2024-08-08 06:48 | P.PNANES_ITS ---
[facility] Disclaimer: The information contained in this section may have been updated after the patient was seen, as this information can be updated by other users. Medical History COPD (chronic obstructive pulmonary disease) Encounter for screening for malignant neoplasm of lung in current smoker with 30 pack year history or greater Dyspnea on exertion Hilar lymphadenopathy History of smoking 30 or more pack years ILD (interstitial lung disease) COPD exacerbation Acute carpal tunnel syndrome Surgical History History of colonoscopy Previous back surgery Family History Other No significant family history Social History (Updated 08/08/24 @ 06:39 by Frida Bella RN) Smoking Status: Former smoker alcohol intake: current alcohol intake frequency: holidays/special occasions only substance use type: denies use current occupational status: retired Travel in the last 8 weeks: Inside the [facility] housing: house lives independently: Yes marital status: [facility] Anesthesia Checklist Patient Identification Patient Identification: Verbal (Name & ) Structural Data Admitted From: Home Planned Operative Procedure/s: i/d r leg Consent for Planned Operative Procedure(s) Verified: Yes NPO Status Verified Time NPO: 00:00 Additional verifications Anesthesia Reactions: No Hx Blood Transfusions: No Blood Transfusion Reaction: No Airway Assessment Mallampati Score:: Class II C-Spine Mobility Assessed: Yes TMJ Mobility Assessed: Yes Dentition: Good Dentition Neurological Assessment Level of Consciousness: Awake, Alert and Appropriate Anesthesia Plan Anesthesia Risk discussed: Yes Anesthesia Plan: Verified ASA Class: II Anesthesia Type: General
[2024-08-08] MEDS: LACTATED RINGERS 1000ML 1,000 ML 25 ML IV (07:04)
[2024-08-08] MEDS: CLINDAMYCIN PHOSPHATE/D5W 900 MG/50 ML PIGGYBACK 100 MG IV (07:15)
[2024-08-08] MEDS: LIDOCAINE 1% 20ML MDV 20 ML (07:26)
--- NOTE | 2024-08-08 07:37 | P.OP_ITS ---
Date of procedure: 08/08/24 Pre-op Diagnosis:: Right lower extremity abscess secondary to foreign body Post-op Diagnosis:: Same Procedure performed:: Incision and drainage/debridement of right lower extremity abscess Surgeon:: Ras Pierce MD DOUGH MOLDER HAND:: Vinay Campbell Anesthesia: local and LMA Estimated blood loss (mL): 5 Operative findings:: Small particles of debris within wound base Operative note:: After informed consent was obtained the patient was taken to the operating room and placed in the supine position. General anesthesia with laryngeal mask airway was achieved. The area around the right lower extremity wound was prepped and draped in a sterile fashion. After infiltration with local anesthetic the central portion of the wound was excised with electrocautery. Small particles of debris were noted within the wound base. Dissection was taken to the fascial margin. The wound was irrigated. Electrocautery was utilized to achieve hemostasis. The wound was then packed with gauze and the patient was transferred to recovery in stable condition. Condition: stable Disposition: PACU Specimens:: None for pathology Complications:: No immediate
--- NOTE | 2024-08-08 07:45 | EXP.ANES.I ---
[facility] Anesthesia Record Part I Anesthesia Record I Intake, IV Amount: 150 Hydration: Adequate Estimated blood loss (mL): 5 Urine output (mL): 0 Blood Products used (#): none Blood Pressure: 127/90 SaO2: 91 Pulse Rate: 56 Airway Patency: Patent Respiratory Rate: 14 Temperature: 97.8 F Patient is:: Drowsy and Stable Stable to PACU at:: 07:40
--- NOTE | 2024-08-09 13:26 | EXP.ANES.II ---
[facility] Anesthesia Record Part II Anesthesia Record Part II Discharge Time: 08:10 Destination: Surgical Day Care (OP Surgery) PACU nurse assessment reviewed?: Yes Patient Condition:: Good Anesthesia Complications:: None Swallowing reflex intact?: Yes Airway Patency: Patent Cyanosis?: No Blood Pressure: 140/79 SaO2: 94 Respiratory Rate: 18 Pulse Rate: 50 Temperature: 97.5 F Mental Status: Alert & Oriented Pain level:: 0 Nausea and/or vomitting:: None Intake, IV Amount: 0 Hydration: Adequate
[2024-08-09 13:27] VITALS: BP 140/79; PULSE 50; RESP 18; TEMP 36.4; O2SAT 94
== END 2024-08-08 08:41 | disposition home or self-care (01) ==
PROVIDERS: PCP Internal Medicine Adolescent Medicine; Visit Provider Surgery
PROC: (CPT 10060; principal; 2024-08-08 07:30)
DX: L02.415 Cutaneous abscess of right lower limb (principal)
CPT/HCPCS: 10060; 96374; J2250; J3010; J7120

== ENCOUNTER 2024-09-18 11:05 | Outpatient (CLI) | payer MEDICARE, SELFPAY ==
--- OUTSIDE RECORDS SUMMARY | 2024-09-18 11:07 | XMS_ITS | Referral Summary ---
Author Organization [facility] Address [address] [place] [address] Phone Care Team Providers Care Record Retrieval Specialist Name Role Phone Unavailable Primary Care Provider Unavailabl e Allergies Active Allergy Reactions Criticality Noted Date Comments Penicillins Other (See Comments) 09/04/2019 Dad had an allergy so pt avoids this medication. Medications atorvastatin (LIPITOR) 80 mg Oral TabletIndication s:Atrial fibrillation, unspecified type (HCC) Take 80 mg by mouth daily. Active tiotropium bromide (SPIRIVA RESPIMAT) 2.5 mcg/actuation Inhl MistIndications: Atrial fibrillation, unspecified type (HCC) Inhale 2 Puffs into the lungs daily at 0900. Active fUROsemide (LASIX) 40 mg Oral Tablet Take 1 Tab by mouth daily. 10 Tab 9 Active Additional Information Patient not taking.Reason: Pt electing to not take the medication, Reported on 11/21/2019 sotaloL (BETAPACE) 120 mg Oral TabletIndication s:Paroxysmal atrial fibrillation (HCC) Take 0.5 Tabs by mouth every 12 hours. 90 Each 2 0 Active aspirin (ASPIRIN) 81 mg Oral Tablet, ChewableIndicati ons:Paroxysmal atrial fibrillation (HCC) Take 1 Tab by mouth daily. 30 Tab 11 0 Active Active Problems Problem Noted Date Diagnosed Date S/P ablation of atrial fibrillation 10/05/2019 Paroxysmal atrial fibrillation 09/17/2019 Overview (09/17/2019): Added automatically from request for surgery [id number] COPD (chronic obstructive pulmonary disease) 02/2019 BPH (benign prostatic hyperplasia) 09/04/2019 Essential hypertension 09/04/2019 Pacemaker Overview (05/05/2020): Medtronic dual chamber PPM Coronary artery disease Overview (05/05/2020): CABG 2005 Social History Tobacco Use Types Packs/Day Years Used Date Smoking Tobacco: Former Cigarettes Smokeless Tobacco: Never Sex and Gender Information Value Date Recorded Sex Assigned at Not on file Legal Sex Male 4:44 AM EDT Gender Identity Not on file Sexual Orientation Not on file Last Filed Vital Signs Vital Sign Reading Time Taken Comments Blood Pressure 150/92 11/21/2019 10:34 AM EST Pulse 49 11/21/2019 10:34 AM EST Temperature 36.3 ??C (97.4 ??F) 10/05/2019 8:56 AM ES T Respiratory Rate 16 10/05/2019 1:29 PM EST Oxygen Saturation 98% 11/21/2019 10:34 AM EST Inhaled Oxygen Concentration - - Weight 85.7 kg (189 lb) 11/21/2019 10:34 AM EST Height 180.3 cm (5' 11 ) 11/21/2019 10:34 AM EST Body Mass Index 26.36 11/21/2019 10:34 AM EST Plan of Treatment Not on file Medical Devices Implanted Type Area Physical Security Manager Device Identifier Shelf Expiration Date Model / Serial / Lot Medtronic Right Ventricle Lead Implanted:11/05 (Quantity not on file) Lead [employer] / [id number] / Medtronic Right Atrial Lead Implanted:11/05 (Quantity not on file) Lead [employer] / [id number] / Medtronic Enrhythm Dual Pacemaker Implanted:11/05 (Quantity not on file) Pacemaker / [id number] / Insurance [address] [facility] [place] [address] [place]ICARE [place] PART A AND B MEDICARE [place] B Advance Directives For more information, please contact: [phone] * Full Code (Latest Code Status on File) Date Activated Date Inactivated Comments 10/05/2019 10:18 AM 10/05/2019 5:59 PM
--- OUTSIDE RECORDS SUMMARY | 2024-09-18 11:07 | XMS_ITS | Encounter Summary ---
Author Organization [facility] [place] [address] Care Team Providers Care Powerhouse Tender Name Role Phone Unavailable Primary Care Provider Unavailabl e Reason for Visit * Reason Onset Date Comments Other 05/16/2020 Encounter Details Date Type Department Care Team (Late st Contact Info) Description 05/16/2020 Telephone [facility] [address] [place] [address] Yousif Thurston MD [address] [id number] Other Social History Tobacco Use Types Packs/Day Years Used Date Smoking Tobacco: Former Cigarettes Smokeless Tobacco: Never Sex and Gender Information Value Date Recorded Sex Assigned at Not on file Legal Sex Male 4:44 AM EDT Gender Identity Not on file Sexual Orientation Not on file documented as of this encounter Miscellaneous Notes * Telephone Encounter - Joel Vera MA - 05/19/2020 4:39 PM EDT LMOM reminding pt of EKG. Pt no showed on appointment today [facility] will r/s * Telephone Encounter - Apple Fritz APRN - 05/19/2020 4:17 PM EDT Great Do we need to order an ECG or does he have a provider there I would like ECG prior to visit Thanks * Telephone Encounter - Joel Vera MA - 05/16/2020 3:55 PM EDT Spoke with pt . Pt is going to do MCVV. I emailed pt information for MyChart setup and went over how to do MCVV * Telephone Encounter - Apple Fritz APRN - 05/16/2020 3:36 PM EDT If he can do a video visit and get an ECG there, that would be fine. I need a visit - video or on site. Thanks * Telephone Encounter - Dawn Michaud, Clerical Staff - 05/16/2020 2:41 PM EDT Patient has an appt on Tuesday the 05-19-2020 with [facility] for 3 month f/u hx PAF ablation. We need to get an EKG to see if he would be able to come off sotalol. Patient lives in [place] and was wondering if he could just get an EKG somewhere closer to home and send it to [facility]. Patient does not want to come all the way up here. Please advise and call @ [phone] Thank you documented in this encounter Plan of Treatment Not on file documented as of this encounter Visit Diagnoses Not on filedocumented in this encounter Additional Health Concerns Assessment Noted Time A fall risk assessment has been complete d for the patient 11/21/2019 10:26 AM EST documented as of this encounter
--- OUTSIDE RECORDS SUMMARY | 2024-09-18 11:07 | XMS_ITS | Encounter Summary ---
Author Organization [place] [address] Care Team Providers Care Hot Dip Galvanizer Name Role Phone Unavailable Primary Care Provider Unavailabl e Reason for Visit * Reason Comments Follow-up Follow up visit. s/p EPS, PAF ablation 10/04/19. Hx of AF. Meds per pt report. Encounter Details Date Type Department Care Team (Late st Contact Info) Description 11/21/2019 10:30 AM EST Office Visit [facility] [address] [facility] [address] [place] [address] Apple Fritz APRN S/P ablation of atrial fibrillation (Primary Dx); Paroxysmal atrial fibrillation (HCC); Essential hypertension Social History Tobacco Use Types Packs/Day Years Used Date Smoking Tobacco: Former Cigarettes Smokeless Tobacco: Never Sex and Gender Information Value Date Recorded Sex Assigned at Not on file Legal Sex Male 4:44 AM EDT Gender Identity Not on file Sexual Orientation Not on file documented as of this encounter Last Filed Vital Signs Vital Sign Reading Time Taken Comments Blood Pressure 150/92 11/21/2019 10:34 AM EST Pulse 49 11/21/2019 10:34 AM EST Temperature - - Respiratory Rate - - Oxygen Saturation 98% 11/21/2019 10:34 AM EST Inhaled Oxygen Concentration - - Weight 85.7 kg (189 lb) 11/21/2019 10:34 AM EST Height 180.3 cm (5' 11 ) 11/21/2019 10:34 AM EST Body Mass Index 26.36 11/21/2019 10:34 AM EST documented in this encounter Progress Notes * Apple Fritz APRN - 11/21/2019 10:30 AM EST Subjective: Patient ID: Shakeel Poon is a 69 y.o. male. Chief Complaint Patient presents with ??? Follow-up Follow up visit. s/p EPS, PAF ablation 10/04/19. Hx of AF. Meds per pt report. Follow-up Chronicity: Follow up visit. s/p EPS, PAF ablation 10/04/19. Hx of AF. Pertinent negatives include no arthralgias, chest pain, chills, congestion, coughing, diaphoresis, fatigue, fever, headaches, joint swelling, myalgias, nausea, neck pain, numbness, rash, urinary symptoms, vomiting or weakness. 69 yo that we are following for paroxysmal atrial fib. He is here today 2 months s/p ablation of atrial fib and atrial flutter. He has a hx of Sinus bradycardia with first degree AV block. He has a dual chamber pacemaker with adead battery that was implanted in 2005; )he believes un necessarily), CAD, CABG 2004 and COPD - He has a echo that was done today, formal read not yet available. He feels great. He is very excited about the progress he has seen. He was very symptomatic when in atrial fib, and now is able to do whatever he wants to do. Their chronic cardiac conditions are: Problem List Cardiology Problems A-fib (HCC) Essential hypertension Paroxysmal atrial fibrillation (HCC) S/P ablation of atrial fibrillation Social History Tobacco Use Smoking Status Former Smoker ??? Packs/day: 0.00 Smokeless Tobacco Never Used Current Outpatient Medications Medication Sig Dispense Refill ??? atorvastatin (LIPITOR) 80 mg Oral Tablet Take 80 mg by mouth daily. ??? sotalol (BETAPACE) 120 mg Oral Tablet Take 1 Tab by mouth every 12 hours. 60 Each 3 ??? tiotropium bromide (SPIRIVA RESPIMAT) 2.5 mcg/actuation Inhl Mist Inhale 2 Puffs into the lungsdaily at 0900. ??? warfarin (COUMADIN) 5 mg Oral Tablet 0 ??? fUROsemide (LASIX) 40 mg Oral Tablet Take 1 Tab by mouth daily. (Patient not taking: Reported on 11/21/2019) 10 Tab 0 No current facility-administered medications for this visit. Review of Systems Constitution: Negative for chills, decreased appetite, diaphoresis, fatigue, fever, malaise/fatigue, night sweats, weight gain and weight loss. HENT: Negative for congestion, hearing loss and nosebleeds. Cardiovascular: Negative for chest pain, dyspnea on exertion, irregular heartbeat, leg swelling, near-syncope, palpitations, paroxysmal nocturnal dyspnea and syncope. Respiratory: Negative for cough, hemoptysis, shortness of breath, sleep disturbances due to breathing, snoring, sputum production and wheezing. Endocrine: Negative for cold intolerance, heat intolerance, polydipsia and polyuria. Hematologic/Lymphatic: Does not bruise/bleed easily. Skin: Negative for itching and rash. Musculoskeletal: Negative for arthralgias, arthritis, back pain, falls, gout, joint pain, joint swelling, muscle cramps, muscle weakness, myalgias and neck pain. Gastrointestinal: Negative for constipation, diarrhea, dysphagia, heartburn, melena, nausea and vomiting. Genitourinary: Negative for bladder incontinence, dysuria, frequency, hematuria and urgency. Neurological: Negative for brief paralysis, difficulty with concentration, disturbances in coordination, dizziness, headaches, light-headedness, loss of balance, numbness, seizures, tremors and weakness. Psychiatric/Behavioral: Negative for altered mental status, depression and memory loss. The patientis not nervous/anxious. Objective: Patient Vitals for the past 24 hrs: Pulse BP 11/21/19 1034 (!) 49 (!) 150/92 Body mass index is 26.36 kg/m??. Physical Exam Constitutional: He appears healthy. No distress. Neck: Neck supple. No JVD present. Cardiovascular: Regular rhythm and normal heart sounds. Bradycardia present. Exam reveals no gallop. No murmur heard. Pulmonary/Chest: He has no rales. He has diffuse wheezes. Diminished breathe sounds throughout Musculoskeletal: General: No edema. Neurological: He is alert and oriented to person, place, and time. Skin: Skin is warm and dry. Ablation: 10/04/2019 Procedure: 1. Comprehensive EP study 2. Radiofrequency Ablation: Atrial Fibrillation Ablation (PVAI) 3. Transseptal Puncture 4. 3-D Electroanatomic mapping 5. Intracardiac Ultrasound 6. Radiofrequency ablation of cavotricuspid isthmus (linear ablation in right atrium) 7. Pacing and recording of coronary sinus 8. Radiofrequency linear ablation of left atrial roof 9. Radiofrequency linear ablation of mitral isthmus 10. CFAE Ablation No results found for this visit on 11/21/19. Lab Review Lab Results Component Value Date WBC 11.5 (H) 10/04/2019 HGB 17.6 (H) 10/04/2019 PLT 283 10/04/2019 Lab Results Component Value Date NA 140 10/04/2019 K 4.1 10/04/2019 GLU 137 (H) 10/04/2019 No results found for: TSH No results found for: CHOLESTEROL, HDL, LDLCALC, TRIG Lab Results Component Value Date INR 2.48 (H) 10/05/2019 PROTIME 38.7 (A) 10/04/2019 C Congestive heart failure (or Left ventricular systolic dysfunction) No 0 H Hypertension: blood pressure consistently above 140/90 mmHg (or treated hypertension on medication) Yes 1 A/A2 Patient Age: 65 - 74 years = 1 1 D Diabetes Mellitus: No 0 S2 Prior Stroke or TIA or thromboembolism: No 0 V Vascular disease (e.g. peripheral artery disease, myocardial infarction, aortic plaque) Yes 1 Sc Sex category (i.e. female sex) Male = 0 0 [id number] Score 3 Assessment and Plan: Diagnoses and all orders for this visit: Paroxysmal atrial fibrillation (HCC) - s/p ablation of atrial fibrillation 10/04/2019 - complex ablation with PVAI, CTI, left atrial roof line, mitral isthmus and CFAE - in sinus bradycardia in office today - on sotalol 120 mg BID - on Warfarin Essential hypertension - poor control - BP 150/92 - echocardiogram scheduled day of visit Cardiac pacemaker in situ: - battery - implanted 2005 for sinus node dysfunction ASHD - hx of CABG - asymptomatic - says he had a LHC by Dr. Beltran in [place] several years ago and he was told that his grafts were occluded, but that he had good coronary anatomy - reports unavailable to me Impression/Plan Sinus bradycardia rate 42 on ECG 6 weeks s/p ablation. Asymptomatic - in fact feels great. Denies any recurrence of afib Says his heart rate is in the 40's on or off sotalol. Anxious to come off of warfarin F/u in office in 2-3 months and if no recurrence of atrial fib, will d/c warfarin and wean off of sotalol documented in this encounter Miscellaneous Notes * Patient Instructions - Shanon Crane MA - 11/21/2019 10:30 AM EST You may be contacted by mail or e-mail to participate in a patient satisfaction survey regarding your office visit today. We value your opinion and depend on your feedback to make improvements and provide you with the best possible experience while receiving high quality medical treatment. Your time in completing this survey is greatly appreciated. Please contact your primary care physician or feed elevator worker for management of your lipids. documented in this encounter Plan of Treatment Not on file documented as of this encounter Procedures Procedure Name Priority Date/Time Associated Diagnosis Comments POCT EKG Routine 11/21/2019 10:33 AM EST S/P ablation of atrial fibrillation Paroxysmal atrial fibrillation (HCC) Essential hypertension documented in this encounter Results * (ABNORMAL) POCT EKG (11/21/2019 10:33 AM EST) 11/21/2019 10:3 3 AM EST Impressions [facility] OFF[facility] - 11/21/2019 10:38 AM EST Sinus bradycardia , borderline first degree AV Block QTc 460 ms - drug effect Non specific T wave changes Apple Fritz APRN POINT OF CARE CARDIOLOGY Final Result [facility] OFFICE documented in this encounter Visit Diagnoses Diagnosis S/P ablation of atrial fibrillation- Primary Other postprocedural status Paroxysmal atrial fibrillation (HCC) Atrial fibrillation Essential hypertension Unspecified essential hypertension documented in this encounter Additional Health Concerns Assessment Noted Time A fall risk assessment has been complete d for the patient 11/21/2019 10:26 AM EST documented as of this encounter
--- OUTSIDE RECORDS SUMMARY | 2024-09-18 11:07 | XMS_ITS | Clinical Summary ---
Author Organization [facility] Arrhythmia [facility] Address [address] [place] [address] Phone Care Team Providers Care Fulling Machine Operator Name Role Phone Unavailable Primary Care Provider [...] (09/17/2019): Added automatically from request for surgery [id number] COPD (chronic obstructive pulmonary disease) 02/2019 BPH (benign prostatic hyperplasia) 09/04/2019 Essential hypertension 09/04/2019 Pacemaker Overview (05/05/2020): Medtronic dual chamber PPM Coronary artery disease Overview (05/05/2020): CABG 2005 Surgical History Surgery Date Site/Laterality Comments ABLATION OF DYSRHYTHMIC FOCUS 10/04/2019 EPS + AF ablation by Dr. Thurston PACEMAKER INSERTION 11/05/2005 MDT dual PPM implant CORONARY ARTERY BYPASS GRAFT 10/31/2004 - 10/30/2005 APPENDECTOMY BACK SURGERY Medical History Medical History Date Comments A-fib (HCC) 09/04/2019 COPD (chronic obstructive pu lmonary disease) ([facility]) 09/04/2019 Essential hypertension 09/04/2019 HLD (hyperlipidemia) CAD (coronary artery disease) Sinus node dysfunction ([facility]) Pacemaker Medtronic dual c hamber PPM Coronary artery disease CABG X 5 Social History Tobacco Use Types Packs/Day Years Used Date Smoking Tobacco: Former Cigarettes Smokeless Tobacco: Never Sex and Gender Information Value Date Recorded Sex Assigned at Not on file Legal Sex Male 4:44 AM EDT Gender Identity Not on file Sexual Orientation Not on file Obstetrics History Last Filed Vital Signs Vital Sign Reading [...] 11/21/2019 10:34 AM EST Plan of Treatment Health Maintenance Due Date Last Done Comments Wellness Exam Medicare 1952 Hepatitis C Screening 1968 DTaP/TDaP/Td (1 - Tdap) 1969 Cologuard 1995 Colon Cancer Screening 1995 Colonoscopy 1995 FIT 1995 Sigmoidoscopy 1995 Virtual Colonography 1995 Zoster (1 of 2) 2000 RSV or 60+ (1 - Ris k 60-74 years 1-dose series) 2010 COVID-19 Vaccine (4 - 2023-2 5 season) 2024 09/29/2021, 12/26/2020, 11/27/2020 Influenza Vaccine (#1) 2024 , 07/18/2021, 09/02/2017 Pneumococcal Vaccine 65+ Completed 020, 09/02/2017 Hepatitis B Vaccine Aged Out No longe r eligible based on patient's age to complete this topic Medical Devices Implanted Type Area [place] Device Identifier Shelf Expiration Date Model / Serial / Lot Medtronic Right Ventricle Lead Implanted:11/05 (Quantity not on file) Lead MEDTRONIC / [id number] / Medtronic Right Atrial Lead Implanted:11/05 (Quantity not on file) Lead MEDTRONIC / [id number] / Medtronic Enrhythm Dual Pacemaker Implanted:11/05 (Quantity not on file) Pacemaker / [id number] / Insurance MEDICARE [place] PART A AND B MEDICARE [place] PART A [place] B Advance Directives For more information, please contact: [phone] * Full Code (Latest Code Status on File) Date Activated Date Inactivated Comments 10/05/2019 10:18 AM 10/05/2019 5:59 PM
--- OUTSIDE RECORDS SUMMARY | 2024-09-18 11:07 | XMS_ITS | Encounter Summary ---
Author Organization [place] [address] Care Team Providers Care Laundry Clerk Name Role Phone Unavailable Primary Care Provider Unavailabl e Reason for Referral * Echo (Routine) - Closed Specialty Diagnoses / Procedures Referred By Diane arzate Referred To Contact Radiology Diagnoses Paroxysmal atrial fibrillation (HCC) Procedures EC ECHOCARDIOGRAM COMPLETE W DOPPLER AND COLOR FLOW MAPPING Apple Fritz APRN Referral ID Status Reason Start Date Expiration Date Visits Re quested Visits Authorized [id number] Closed 10/05/2019 10/05/2021 1 1 Reason for Visit * Reason Onset Date Comments Other 10/05/2019 scheduling an Ec ho Encounter Details Date Type Department Care Team (Late st Contact Info) Description 10/05/2019 Telephone [facility] [address] [facility] [address] [place] [address] Apple Fritz APRN Other (scheduling an Echo) Social History Tobacco Use Types Packs/Day Years Used Date Smoking Tobacco: Former Cigarettes Smokeless Tobacco: Never Sex and Gender Information Value Date Recorded Sex Assigned at Not on file Legal Sex Male 4:44 AM EDT Gender Identity Not on file Sexual Orientation Not on file documented as of this encounter Miscellaneous Notes * Telephone Encounter - Shanon Crane MA - 10/05/2019 4:45 PM EST Called and spoke with patient, Echo scheduled for 2019. Patient was agreeable and voiced understanding. * Telephone Encounter - Shanon Crane MA - 10/05/2019 4:16 PM EST ----- Message from Apple Fritz APRN sent at 10/05/2019 1:39 PM EST ----- Please order and schedule outpatient echo on the same day that he has f/u with me in October. He lives in [place] Thanks documented in this encounter Plan of Treatment Not on file documented as of this encounter Results * EC ECHOCARDIOGRAM COMPLETE W DOPPLER AND COLOR FLOW MAPPING (11/21/2019 1:48 PM EST) Ejection Fraction 65 % PYRAMIS Anatomical Region Laterality Modality Electrocardiogra phy 11/21/2019 12:5 6 PM EST Impressions 11/21/2019 4:40 PM EST ??CONCLUSIONS ??Left ventricular wall thickness is normal. ??Mild ??mitral regurgitation. Narrative Procedure Note Yonas Goel MD - 11/21/2019 IMPRESSION CONCLUSIONS Left ventricular wall thickness is normal. Mild mitral regurgitation. us Apple Fritz APRN IMG ECHO ORDERABLES Final Resu lt documented in this encounter Visit Diagnoses Diagnosis Paroxysmal atrial fibrillation (HCC)- Primary Atrial fibrillation Paroxysmal atrial fibrillation (HCC) Atrial fibrillation documented in this encounter
--- OUTSIDE RECORDS SUMMARY | 2024-09-18 11:07 | XMS_ITS | Encounter Summary ---
Author Organization [facility] [place] [address] Care Team Providers Care Periodontal Assistant Name Role Phone Unavailable Primary Care Provider Unavailabl e Encounter Details Date Type Department Care Team (Latest Contact Info) Description 01/24/2020 Travel Social History Tobacco Use Types Packs/Day Years Used Date Smoking Tobacco: Former Cigarettes Smokeless Tobacco: Never Sex and Gender Information Value Date Recorded Sex Assigned at Not on file Legal Sex Male 4:44 AM EDT Gender Identity Not on file Sexual Orientation Not on file COVID-19 Exposure Response Date Recorded In the last month, have you been in contact with someone who was confirmed or suspected to have Coronavirus / COVID-19? Unable to assess 01/24/2020 1:49 PM EDT documented as of this encounter Plan of Treatment Not on file documented as of this encounter Visit Diagnoses Not on filedocumented in this encounter Additional Health Concerns Assessment Noted Time A fall risk assessment has been complete d for the patient 11/21/2019 10:26 AM EST documented as of this encounter
--- OUTSIDE RECORDS SUMMARY | 2024-09-18 11:07 | XMS_ITS | Encounter Summary ---
Author Organization [facility] Address [facility] [place] [address] Care Team Providers Care Wire Rope Sales Representative Name Role Phone Unavailable Primary Care Provider Unavailabl e Reason for Referral * Echo (Routine) - Closed Specialty Diagnoses / Procedures Referred By Diane arzate Referred To Contact Radiology Diagnoses Paroxysmal atrial fibrillation (HCC) Procedures EC ECHOCARDIOGRAM COMPLETE W DOPPLER AND COLOR FLOW MAPPING Apple Fritz APRN Referral ID Status Reason Start Date Expiration Date Visits Re quested Visits Authorized [id number] Closed 10/05/2019 10/05/2021 1 1 Reason for Visit * Echo (Routine) - Closed Specialty Diagnoses / Procedures Referred By Diane arzate Referred To Contact Radiology Diagnoses Paroxysmal atrial fibrillation (HCC) Procedures EC ECHOCARDIOGRAM COMPLETE W DOPPLER AND COLOR FLOW MAPPING Apple Fritz APRN Referral ID Status Reason Start Date Expiration Date Visits Re quested Visits Authorized [id number] Closed 10/05/2019 10/05/2021 1 1 Encounter Details Date Type Department Care Team (Latest Contact Info) Description 11/21/2019 12:21 PM EST - 11/21/2019 11:59 PM EST Hospital Encounter EDG ECHO [facility] [place] [address] Apple Fritz APRN Paroxysmal atrial fibrillation (HCC) Discharge Disposition: Home or Self Care Social History Tobacco Use Types Packs/Day Years Used Date Smoking Tobacco: Former Cigarettes Smokeless Tobacco: Never Sex and Gender Information Value Date Recorded Sex Assigned at Not on file Legal Sex Male 4:44 AM EDT Gender Identity Not on file Sexual Orientation Not on file documented as of this encounter Medications at Time of Discharge atorvastatin (LIPITOR) 80 mg Oral TabletIndications: Atrial fibrillation, unspecified type (HCC) Take 80 mg by mouth daily. fUROsemide (LASIX) 40 mg Oral Tablet Take 1 Tab by mouth daily. 10 Tab 10/05/2019 tiotropium bromide (SPIRIVA RESPIMAT) 2.5 mcg/actuation Inhl MistIndications:At rial fibrillation, unspecified type (HCC) Inhale 2 Puffs into the lungs daily at 0900. sotalol (BETAPACE) 120 mg Oral Tablet Take 1 Tab by mouth every 12 hours. 60 Each 3 10/05/2019 01/28/2020 documented as of this encounter Discharge Disposition Disposition Code Departure Means Destination Home or Self Care documented in this encounter Plan of Treatment Not on file documented as of this encounter Procedures Procedure Name Priority Date/Time Associated Diagnosis Comments EC ECHOCARDIOGRAM COMPLETE W DOPPLER AND COLOR FLOW MAPPING Routine 11/21/2019 1:48 PM EST Paroxysmal atrial fibrillation (HCC) documented in this encounter Results * EC ECHOCARDIOGRAM COMPLETE [...] wall thickness is normal. Mild mitral regurgitation. Apple Fritz APRN IMG ECHO ORDERABLES Final Resu lt documented in this encounter Visit Diagnoses Diagnosis Paroxysmal atrial fibrillation (HCC) Atrial fibrillation documented in this encounter Additional Health Concerns Assessment Noted Time A fall risk assessment has been complete d for the patient 11/21/2019 10:26 AM EST documented as of this encounter
--- OUTSIDE RECORDS SUMMARY | 2024-09-18 11:07 | XMS_ITS | Encounter Summary ---
Author Organization [place] [address] Care Team Providers Care Allergy Nurse Name Role Phone Unavailable Primary Care Provider Unavailabl e Reason for Visit * Reason Onset Date Comments Other 05/23/2020 Encounter Details Date Type Department Care Team (Late st Contact Info) Description 05/23/2020 Telephone [facility] [address] [facility] [facility] [address] [place] [address] Yousif Thurston MD [address] [id number] Other Social History Tobacco Use Types Packs/Day Years Used Date Smoking Tobacco: Former Cigarettes Smokeless Tobacco: Never Sex and Gender Information Value Date Recorded Sex Assigned at Not on file Legal Sex Male 4:44 AM EDT Gender Identity Not on file Sexual Orientation Not on file documented as of this encounter Miscellaneous Notes * Telephone Encounter - Dawn Michaud, Clerical Staff - 05/23/2020 10:56 AM EDT Left message to have patient call office to get the 05-19-2020 appt he missed rescheduled to 05/26 or05/28 in office with Barb. Allen had called and left message on 05-22 Thank you documented in this encounter Plan of Treatment Not on file documented as of this encounter Visit Diagnoses Not on filedocumented in this encounter Additional Health Concerns Assessment Noted Time A fall risk assessment has been complete d for the patient 11/21/2019 10:26 AM EST documented as of this encounter
--- OUTSIDE RECORDS SUMMARY | 2024-09-18 11:07 | XMS_ITS | Encounter Summary ---
Author Organization [place] [address] Care Team Providers Care Relay Adjuster Name Role Phone Unavailable Primary Care Provider Unavailabl e Reason for Visit * Reason Comments Follow-up Patient is here for a 2 month follow up, s/p EPS, PAF ablation 10/04/19. Encounter Details Date Type Department Care Team (Late st Contact Info) Description 01/28/2020 11:30 AM EDT Telemedicine [facility] [address] [facility] [address] [place] [address] Apple Fritz APRN Paroxysmal atrial fibrillation (HCC) (Primary Dx); S/P ablation of atrial fibrillation; Chronic obstructive pulmonary disease, unspecified COPD type (HCC) Social History Tobacco Use Types Packs/Day Years [...] have Coronavirus / COVID-19? Unable to assess 01/28/2020 9:22 AM EDT documented as of this encounter Ordered Prescriptions Prescription Sig Dispense Quantity Refills Last Filled Start Date End Date aspirin (ASPIRIN) 81 mg Oral Tablet, ChewableIndications :Paroxysmal atrial fibrillation (HCC) Take 1 Tab by mouth daily. 30 Tab 11 01/28/2020 sotaloL (BETAPACE) 120 mg Oral TabletIndications:P aroxysmal atrial fibrillation (HCC) Take 0.5 Tabs by mouth every 12 hours. 90 Each 2 01/28/2020 documented in this encounter Progress Notes * Jonathan Painter MA - 01/28/2020 11:30 AM EDT Shakeel Poon was scheduled for a video/telephone visit with our office. Shakeel Poon was notified that co-pays may still apply and that they would be responsible for any billed amount not coveredby insurance. Shakeel Poon is aware of possible charges and billing of insurance and has verballyagreed to those terms. Shakeel Poon was asked if they had any further questions regarding the visit and billing and reports no further questions at this time. * Apple Fritz APRN - 01/28/2020 11:30 AM EDT Patient presented today for routine care follow-up through a telephone visit. Patient is aware thatthis visit/encounter is replacing a face to face office service and is billable under applicable telephone visit billing rules per their insurance and is being imitated by the patient either through a direct scheduled telephone visit or after hours page to the office. Patient is aware that a telephone visit does not replace a [id number] exam and further services may be necessary. I advised the patient that we are conducting his telephone visit through our office in a private space. Patient had no questions prior to initiation of the visit and provided verbal consent to proceed. The length of time of this visit/call was 11 minutes HPI: 69 yo male that we are following for paroxysmal atrial fibrillation. S/p ablation of atrial fib on 10/04/2019. Maintained on sotalol and warfarin during the 90 day blanking period post ablation. Tells me that he has been feeling great . Says he is somewhat limited by his COPD, but states that he has been able to do more activity than normal. Denies any palpitation or any known recurrence of atrial fibrillation He stopped warfarin on his own 2 weeks ago due to bleeding hemorrhoids with improvement in symptoms. Anxious to come off of sotalol Review of Systems Constitutional: Positive for activity change (improvement in activity toleance). Negative for fatigue. Cardiovascular: Negative for chest pain and palpitations. Gastrointestinal: Positive for blood in stool (improved after stopping warfarin ). Neurological: Negative for dizziness, syncope, weakness and light-headedness. Exam: Constitutional: Doesn't sound in acute distress, conversational, alert and oriented to topics of conversation. HENT: Voice normal w/o hoarseness Respiratory: No audible shortness of breath, wheezing, or respiratory distress. Psych: Normal conversation, mood, and thought content. Appropriate speech. No emotional lability. Assessment Diagnoses and all orders for this visit: Paroxysmal atrial fibrillation (HCC) (Chronic) -S/P ablation of atrial fibrillation 10/14/2019 - no self monitoring capabilities to assess heart rhythm. He thinks he is maintaining sinus rhythm based on how he feels. - he stopped warfarin on his own 2 weeks ago due to bleeding hemorrhoids with improvement. [id number] score of 3 for HTN, age and vascular disease - ?? Prior CABG - would like to come off of sotalol Chronic obstructive pulmonary disease, unspecified COPD type (HCC) (Chronic) CAD Prior cabg - Impression/Plan 3 1/2 months s/p ablation of paroxysmal atrial fibrillation Due to COVID 19 physical distancing guidelines, unable to check ECG. Based on symptoms, he is confident that he is in normal rhythm - he stopped warfarin on his own two weeks ago d/t problems with bleeding hemorrhoids - he would like to come off of sotalol. Explained that if he has a recurrence, we would not be ableto do a cardioversion, and he stopped chronic anticoagulation - via shared decision making, we agreed to stopping warfarin due to bleeding, adding ASA 81 mg daily and decreasing sotalol to 60 mg BID - plan f/u visit in 3 months (or sooner if restrictions are lifted) and d/c sotalol if maintaining Sinus Rhythm. - encouraged to call for any questions or concerns. I documented in this encounter Plan of Treatment Not on file documented as of this encounter Visit Diagnoses Diagnosis Paroxysmal atrial fibrillation (HCC)- Primary Atrial fibrillation S/P ablation of atrial fibrillation Other postprocedural status Chronic obstructive pulmonary disease, unspecified COPD type (HCC) documented in this encounter Discontinued Medications Medication Sig Discontinue Reason Start Date End Da te warfarin (COUMADIN) 5 mg Oral TabletIndications:Atrial fibrillation, unspecified type (HCC) Alternate therapy 08/14/2019 01/28/2020 sotalol (BETAPACE) 120 mg Oral Tablet Take 1 Tab by mouth every 12 hours. 10/05/2019 01/28/2020 documented as of this encounter Additional Health Concerns Assessment Noted Time A fall risk assessment has been complete d for the patient 11/21/2019 10:26 AM EST documented as of this encounter
--- OUTSIDE RECORDS SUMMARY | 2024-09-18 11:07 | XMS_ITS | Encounter Summary ---
Author Organization [place] [address] Care Team Providers Care Director Of Broadcast Name Role Phone Unavailable Primary Care Provider Unavailabl e Reason for Visit * Reason Onset Date Comments Other 01/22/2020 COVID-19 Encounter Details Date Type Department Care Team (Late st Contact Info) Description 01/22/2020 Telephone [facility] [address] [facility] [address] [place] [address] Apple Fritz APRN Other (COVID-19) Social History Tobacco Use Types Packs/Day Years Used Date Smoking Tobacco: Former Cigarettes Smokeless Tobacco: Never Sex and Gender Information Value Date Recorded Sex Assigned at Not on file Legal Sex Male 4:44 AM EDT Gender Identity Not on file Sexual Orientation Not on file documented as of this encounter Miscellaneous Notes * Telephone Encounter - Tracie Abel MA - 01/22/2020 9:40 AM EDT To combat the COVID-19 pandemic, the government mandated that hospitals and healthcare providers suspend performing elective procedures effective January 16, 2020. The provider has reviewed this patient???s treatment history and has determined that the patient???s medical condition does not require the performance of the previously planned therapeutic intervention or outpatient visit at this time, and it is medically appropriate to postpone the intervention or outpatient visit until a reasonable time after the suspension is lifted. documented in this encounter Plan of Treatment Not on file documented as of this encounter Visit Diagnoses Not on filedocumented in this encounter Additional Health Concerns Assessment Noted Time A fall risk assessment has been complete d for the patient 11/21/2019 10:26 AM EST documented as of this encounter
--- OUTSIDE RECORDS SUMMARY | 2024-09-18 11:07 | XMS_ITS | Encounter Summary ---
Author Organization [facility] [place] [address] Care Team Providers Care Financial Accounting Manager Name Role Phone Unavailable Primary Care Provider Unavailabl e Encounter Details Date Type Department Care Team (Latest Contact Info) Description 01/28/2020 Travel Social History Tobacco Use Types Packs/Day [...] AM EDT documented as of this encounter Plan of Treatment Not on file documented as of this encounter Visit Diagnoses Not on filedocumented in this encounter Additional Health Concerns Assessment Noted Time A fall risk assessment has been complete d for the patient 11/21/2019 10:26 AM EST documented as of this encounter
--- OUTSIDE RECORDS SUMMARY | 2024-09-18 11:08 | XMS_ITS | Encounter Summary ---
Author Organization [place] [address] Care Team Providers Care Senior Industrial Engineer Name Role Phone Unavailable Primary Care Provider Unavailabl e Encounter Details Date Type Department Care Team (Late st Contact Info) Description 12/21/1999 9:12 AM EST - 12/21/1999 11:59 PM EST Hospital Encounter [facility] Roshan Barnett MD [address] [place] [address] [address] Social History Tobacco Use Types Packs/Day Years Used Date Smoking Tobacco: Never Assessed Sex and Gender Information Value Date Recorded Sex Assigned at Not on file Legal Sex Male 4:44 AM EDT Gender Identity Not on file Sexual Orientation Not on file documented as of this encounter Plan of Treatment Not on file documented as of this encounter Visit Diagnoses Not on filedocumented in this encounter
--- OUTSIDE RECORDS SUMMARY | 2024-09-18 11:08 | XMS_ITS | Encounter Summary ---
Author Organization [place] [address] Care Team Providers Care Radius Corner Machine Operator Name Role Phone Unavailable Primary Care Provider Unavailabl e Encounter Details Date Type Department Care Team (Late st Contact Info) Description 12/29/2000 12:01 AM EST - 01/28/2001 11:59 PM EST Hospital Encounter [facility] Melvin Sapp MD [address] [place] [address] Social History Tobacco Use Types Packs/Day Years [...]
--- OUTSIDE RECORDS SUMMARY | 2024-09-18 11:08 | XMS_ITS | Encounter Summary ---
Author Organization [place] [address] Care Team Providers Care Nursing Center Tutor Name Role Phone Unavailable Primary Care Provider Unavailabl e Encounter Details Date Type Department Care Team (Late st Contact Info) Description 02/28/2001 12:01 AM EDT - 03/30/2001 11:59 PM EDT Hospital Encounter [facility] Melvin Sapp MD [address] [place] [address] Social History Tobacco Use Types [...]
--- OUTSIDE RECORDS SUMMARY | 2024-09-18 11:08 | XMS_ITS | Encounter Summary ---
Author Organization [place] [address] Care Team Providers Care Manager Park Name Role Phone Unavailable Primary Care Provider Unavailabl e Reason for Visit * Auth/Cert/Inpt Specialty Diagnoses / Procedures Referred By Diane t Referred To Contact Diagnoses Paroxysmal atrial fibrillation (HCC) Paroxysmal atrial fibrillation (HCC) [I48.0] Procedures IN INTRACARDIAC ELECTROPHYSIOLOGIC 3D MAPPING IN EPHYS EVL TRNSPTL TX ATRIAL FIB ISOLAT PULM VEIN IN ICAR CATHETER ABLATION ARRHYTHMIA ADD ON IN INTRACARD ECHO, THER/DX INTERVENT PAROXYSMAL ATRIAL FIBRILLATION ABLATION WITH 3D MAPPING Referral ID Status Reason Start Date Expiration Date Visits Re quested Visits Authorized [id number] 1 1 Encounter Details Date Type Department Care Team (Late st Contact Info) Description 10/04/2019 11:50 AM EST - 10/04/2019 3:00 PM EST Surgery [facility] [employer] DIRECTOR [facility] [place] [address] Yousif Thurston MD [address] [facility] [place] [address] PAROXYSMAL ATRIAL FIBRILLATION ABLATION WITH 3D MAPPING Surgery Details Date/Time Status Location OR Service Patient Class Case Class Case Type Trauma Case? 10/04/2019 11:50 AM Posted [facility] [employer] SERVICES DIRECTOR IMAGING [facility] EP LAB 2 Cardiac Same Day Surgery Elective Panel 1 Procedure LRB Anes Op Region Wound Class Comments PAROXYSMAL ATRIAL FIBRILLATION ABLATION WITH 3D MAPPING N/A General PAROXYSMAL ATRIAL FIBRILLATION ABLATION WITH 3D MAPPING Surgeon Surgeon Role Service Panel Yousif Thurston MD Primary Cardiac 1 Special Needs Electrophysiology Study, 3D Mapping, Paroxysmal Atrial fibrillation ablation; Medtronic Dual Chamber Permenant Pacemaker in place (battery depleted); Pt arrival time is 8:15 am, pt is to have CT heart structure and morphology prior to procedure per TC, documented in this encounter Social History Tobacco Use Types Packs/Day Years Used Date Smoking Tobacco: Former Cigarettes Smokeless Tobacco: Never Sex and Gender Information Value Date Recorded Sex Assigned at Not on file Legal Sex Male 4:44 AM EDT Gender Identity Not on file Sexual Orientation Not on file documented as of this encounter Last Filed Vital Signs Vital Sign Reading Time Taken Comments Blood Pressure 108/78 10/04/2019 8:45 AM EST Pulse 125 10/04/2019 8:45 AM EST Temperature 35.8 ??C (96.5 ??F) 10/04/2019 8:45 AM ES T Respiratory Rate 22 10/04/2019 8:45 AM EST Oxygen Saturation 98% 10/04/2019 8:45 AM EST Inhaled Oxygen Concentration - - Weight - - Height - - Body Mass Index - - documented in this encounter Discharge Summaries * Yousif Thurston MD - 10/05/2019 8:30 AM EST [facility] Discharge Summary Patient Name: Shakeel Poon : 1950 Admit Date: 10/04/2019 Discharge Date: 10/05/2019 Admitting Physician: Yousif Thurston MD Discharge Physician: Yousif Thurston Reason for Hospitalization: Active Hospital Problems S/P ablation of atrial fibrillation *Paroxysmal atrial fibrillation (HCC) Hospital Course/Significant Findings: 69 yo with symptomatic paroxysmal atrail fibrillation. Elective admission for atrial fib ablation. Post Procedure Day #1: - No significant pleuritic chest pain or palpitations. No shortness of air. - No abdominal pain. No significant back or groin pain. - Suture removed from groin. - On exam: Groin site without hematoma. No significant ecchymosis or tenderness. - Tele monitor showed sinus rhythm - Patient able to ambulate without difficulty. - Tolerating diet. - No significant dysuria. Patient able to urinate without difficulty. - Routine post procedure instructions given. Long procedure Received a lot of fluid Diuresed with IV lasix x 1 Discharge on lasix 40 mg QD x 3 with plan to f/u by phone on Tuesday Plan outpatient echo to be scheduled day of f/u visit ECG on Tuesday on Sotalol Continue warfarin Procedures Performed: s/p atrial fib ablation Consults: NA Discharge Exam: General appearance: Up walking in greene - 2 labs without dyspnea. NAD Lungs: clear Heart: regular rate and rhythm Extremities: warm and dry . No edema Pulses: palpable - 2+ radial and PT Discharge Diagnoses: Paroxysmal atrial fibrillation (HCC) Condition at Discharge: good Disposition: Home Discharge Medications:: Medication List START taking these medications fUROsemide 40 mg Tab Dose: 40 mg Qty: 10 Tab Refills: 0 Commonly known as: LASix 40 mg, Oral, DAILY sotalol 120 mg Tab Dose: 120 mg Qty: 60 Each Refills: 3 Commonly known as: BETAPACE 120 mg, Oral, EVERY 12 HOURS SCHEDULED CONTINUE taking these medications atorvastatin 80 mg Tab Dose: 80 mg Refills: 0 Commonly known as: LIPITOR SPIRIVA RESPIMAT 2.5 mcg/actuation Mist Dose: 2 Puff Refills: 0 Generic drug: tiotropium bromide warfarin 5 mg Tab Refills: 0 Commonly known as: COUMADIN STOP taking these medications metoprolol 50 mg Tab Commonly known as: LOPRESSOR Where to Get Your Medications These medications were sent to [facility]-[address] [place] [phone] - [address] - [phone] [place] [phone] ?? fUROsemide 40 mg Tab ?? sotalol 120 mg Tab Follow Up: Maycol Fritz APRN [address] [place] [address] On 11/21/2019 at 1030 AM - f/u to atrial fib ablation Echo to be scheduled 11/21/2018 ECG on October 08 Signed: Maycol Fritz APRN 10/05/2019 8:30 AM documented in this encounter Discharge Instructions * Discharge Instructions* Ines Gloria RN - 10/05/2019 1:31 PM EST - take lasix 40 mg daily x 3 days - call me on Chun and let me know How you are feeling ( I ordered # 10, but just take for - ok to call over the weekend if you are short of breathe - ECG on Tuesday at primary care office and have them fax to our office as we discussed - echo in six weeks on day of your f/u visit - our office will call to schedule. Ok to shower No lifting greater than 5-10 pounds for one week No tub baths, swimming or soaking in water for one week. [facility]-Cardiovascular Angiogram Discharge IP/OP leg access [facility] Discharge Instructions - Leg Access Best wishes are extended to you on behalf of [facility] as you are discharged. Because we are most concerned with your health, we suggest you carefully read and take an active role in your overall health and follow these instructions. IF YOU ARE DISCHARGED THE DAY OF YOUR PROCEDURE: 1. Return to your usual diet including, low fat, no added salt. 2. Rest quietly today with the leg used for the procedure kept straight. 3. Limit the use of stairs, walk slowly. 4. Do not drive. 5. Leave the bandage in place over the puncture site until next day, when you remove the bandage, shower, and gently cleanse leg with soap and water. A Band- Aid may be placed over the area if desired. 6. You may experience the following conditions: a. Discoloration and/or a small lump at the puncture site this will gradually go away. b. Soreness at the puncture site when you first begin to use your leg. c. Numbness at the puncture site; this should go away within 4-6 hours AFTER THE FIRST 24 HOURS FOLLOWING THE PROCEDURE: 1. You may climb stairs. 2. You may drive a car. 3. You may shower, wash gently in your groin area. 4. Do NOT take a bath, swim, use hot tubs, or submerge your access in water site for five days following your procedure. 5. Do NOT perform strenuous exercise for five days, including golf, bowling, tennis, jogging, household jobs, sexual relations, etc. 6. Do NOT lift objects heavier than 10 pounds for five days. CONCERNS: CALL YOUR PHYSICIAN???S OFFICE TO REPORT THE FOLLOWING 1. Excessive pain in the area around puncture site or in your thigh. 2. Increase in swelling around puncture site or thigh. 3. Loss of color, extreme coldness or numbness of leg. 4. Sign of infection- fever, chills, and redness at puncture site. CONCERNS: BLEEDING Immediately lie flat and apply pressure over the puncture site and have someone call 911 to transport you to your local Emergency Room. Do NOT stop taking ASPIRIN, PLAVIX (Clopidogrel), BRILINTA (Ticagrelor) or EFFIENT (Prasugrel) for any reason without first discussing with your physician, due to the risk of heart attack and . PAIN ASSESSMENT IF PAIN INTENSIFIES OR PAIN IS UNRELIEVED WITH MEDICATIONS ORDERED, CALL YOUR PHYSICIAN. MEDICATIONS: *Contact your physician before resuming any medication from home not listed in the discharge medication instruction sheet. ADDITIONAL INSTRUCTIONS: * Smoking is hazardous to your health. Second hand smoke is hazardous to those around you. If you smoke, you can contact your Primary Care Provider for smoking cessation information and classes. * See your physician regularly. * HEART FAILURE: Call your physician if you experience any weight gain of 4 lbs in 2 days, chest discomfort, swelling of feet/ankles, frequent dry hacking cough especially when lying down, dizziness,fainting, passing out, difficulty breathing, leg cramping, decrease in activity tolerance, problemsrelated to current illness/procedure or if symptoms persist or worsen. * Stay active, lower your stress level and monitor your blood pressure. Other Instructions: I HAVE RECEIVED AND UNDERSTAND THE ABOVE INSTRUCTIONS. Please bring this paper with you when you return to your physician. * Attachments The following attachments cannot be sent through Care Everywhere. * Furosemide tablets (Nauruan) * Sotalol tablets (Betapace) (Nauruan) documented in this encounter Medications at Time of Discharge [...] 10/05/2019 01/28/2020 documented as of this encounter Ordered Prescriptions Prescription Sig Dispense Quantity Refills Last Filled Start Date End Date fUROsemide (LASIX) 40 mg Oral Tablet Take 1 Tab by mouth daily. 10 Tab 10/05/2019 sotalol (BETAPACE) 120 mg Oral Tablet Take 1 Tab by mouth every 12 hours. 60 Each 3 10/05/2019 01/28/2020 documented in this encounter Discharge Disposition Disposition Code Departure Means Destination Home or Self Half-Way documented in this encounter Progress Notes * This document contains information received from the source organization and may not represent a complete record from that organization. * Restricted notes were excluded * Ines Gloria RN - 10/05/2019 1:47 PM EST Pt educated on leg access discharge instructions, new medications (lasix & sotalol), follow up instruction & appoinments. All questions answered and AVS given. Pt verbalized understanding. IVremoved, dressing applied. cafeteria monitor removed. Pt decline wheelchair for discharge and walk off unit with spouse. * Casi Atkins RN - 10/05/2019 5:26 AM EST Pt sleep well throughout the night. R groin access site without s/s of hematoma or bleeding. Drsg CDI. Pt c/o of achy soreness to chest off an on throughout the night but declined any medication. This am, pt has no c/o pain or discomfort. Assisted pt to restroom after bedrest was complete. Pt ambulated well. Pt anticipates going home today. Bed is in lowest position, heels locked, side rails up x2, and call fritz within reach. * Dorothy Saha RN - 10/04/2019 6:17 PM EST Arrived to unit from PACU. Patient A&Ox3. Right groin dressing D&I. No bleeding or hematoma. Aware of need to remain on strict bedrest. Skin assessment completed with Ken Bravo RN. No areas of concern noted. Call light in reach BA on. documented in this encounter H&P Notes * Yousif Thurston MD - 10/04/2019 11:55 AM EST Patient seen and examined. No change in interval history or exam. Source Note - Yousif Thurston MD - 09/07/2019 1:00 PM EST Subjective: Patient ID: Shakeel Poon is a 68 y.o. male. Chief Complaint Patient presents with ??? 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 Guadalupe ref. provider found to provide initial consultation on Shakeel Knox This is a chronic (Hx of AF) problem. The current episode started more than 1 year ago (). The problem occurs every several days. The problem has been gradually worsening. Associated symptoms include weakness. Pertinent negatives include no arthralgias, chest pain, chills, congestion, coughing, diaphoresis, fatigue, fever, headaches, joint swelling, myalgias, nausea, neck pain, numbness, rash, urinary symptoms or vomiting. Nothing aggravates the symptoms. He has tried nothing for the symptoms. Their chronic cardiac conditions are: Problem List Cardiology Problems A-fib (HCC) Essential hypertension Social History Tobacco Use Smoking Status Former Smoker ??? Packs/day: 0.00 Smokeless Tobacco Never Used Current Outpatient Medications Medication Sig Dispense Refill ??? atorvastatin (LIPITOR) 80 mg Oral Tablet Take 80 mg by mouth daily. ??? metoprolol (LOPRESSOR) 50 mg Oral Tablet Take 50 mg by mouth 2 times daily. 0 ??? tiotropium bromide (SPIRIVA RESPIMAT) 2.5 mcg/actuation Inhl Mist Inhale 2 Puffs into the lungsdaily at 0900. ??? warfarin (COUMADIN) 5 mg Oral Tablet 0 No current facility-administered medications for this visit. Patients past medical, family and social histories were reviewed and updated. There were no changesexcept as noted. Review of Systems Constitution: Negative for chills, decreased appetite, diaphoresis, fatigue, fever, malaise/fatigue, night sweats, weight gain and weight loss. HENT: Negative for congestion, hearing loss and nosebleeds. Cardiovascular: Positive for dyspnea on exertion, irregular heartbeat and palpitations. Negative for chest pain, leg swelling, near-syncope, paroxysmal nocturnal dyspnea and syncope. Respiratory: Positive for shortness of breath. Negative for cough, hemoptysis, sleep disturbances due to breathing, snoring, sputum [...] incontinence, dysuria, frequency, hematuria and urgency. Neurological: Positive for light-headedness and weakness. Negative for brief paralysis, difficulty with concentration, disturbances in coordination, dizziness, headaches, loss of balance, numbness, seizures and tremors. Psychiatric/Behavioral: Negative for altered mental status, depression and memory loss. The patientis not nervous/anxious. Objective: Patient Vitals for the past 24 hrs: Pulse BP BP Location Patient Position 09/07/19 1256 (!) 44 118/78 Left arm Sitting Body mass index is 26.61 kg/m??. Physical Exam General: No apparent distress. Alert and oriented. Eyes: No Scleral icterus. Ptosis is absent. Ears, Nose, Mouth, Throat: Oropharynx is clear. Nose is midline. Neck:Trachea is midline. Respiratory: Respiratory effort is normal. Clear to auscultation bilaterally Cardiovascular: Rhythm is regular. S1 and S2 normal. No murmur. Pulses are normal. Jugular venous pressure is normal. Carotid Bruits are absent. Abdomen: Abdomen is soft and non tender. Extremeties: Clubbing is absent. Cyanosis is absent. No Edema Skin: Warm and dry. Neurological: Cranial nerves are grossly intact. Speech is normal. Psychiatric: Mood is normal. Affect is normal. No results found for this visit on 09/07/19. Lab Review No results found for: WBC, HGB, PLT No results found for: NA, K, GLU, ALT, ALKPHOS No results found for: TSH No results found for: CHOLESTEROL, HDL, LDLCALC, TRIG No results found for: INR, PROTIME Assessment and Plan: Shakeel was seen today for new patient. Diagnoses and all orders for this visit: Atrial fibrillation, unspecified type (HCC) - POCT EKG C Congestive heart failure (or Left ventricular [...] (i.e. female sex) Male = 0 0 [id number] Score 3 1. Sinus bradycardia with first degree AV block 2. Dual chamber pacemaker - battery - implanted 2005 3. Paroxysmal atrial fibrillation 4. CAD s/p CABG 2004 --> Last [facility] 2017, failed grafts with patent rosebud coronary arteries per patient 5. COPD Symptomatic paroxysmal atrial fibrillation since 2004. Recently documented on EKG. While in atrial fibrillation ventricular response is reasonably controlled. While in AF he has severe symptoms of shortness of breath and dyspnea on exertion that are interfering with his quality of life. Up until now he has been managed with rate control approach Which has not controlled his symptoms. Reviewed treatment options for rhythm control. We discussed medical management and radiofrequency ablation. He is not a good candidate for 1C agents given his history of coronary artery disease. Hesitant to initiate sotalol given his resting sinus bradycardia and likelihood of severe bradycardia with the medicat ion. He also has history of COPD for which amiodarone would not be a good long- term treatment option given the risk of lung toxicity. Discussed AF ablation in detail including outcomes, post procedure consideration, potential for complications, and potential need for repeat procedures. He has a history of having what he felt was an unnecessary pacemaker procedure and he is hesitant to proceed with the procedure without in-depth discussion with his family members who are work in healthcare settings. Offered to initiate sotalol to help control symptoms while he contemplates an AF ablation. He also wished to discuss this with his family. If sotalol were to be used he would need an EKG and day 1 and day 2 following initiation. As it stands now he will follow-up as needed. He will call us to determine next steps. If he were to undergo A. fib ablation would recommend a heart CT which could bepossibly coordinated on the day of the procedure. documented in this encounter Nursing Notes * Olga Spivey RN - 10/02/2019 4:[address] Thurston's office notified that labs will be drawn DOS documented in this encounter Miscellaneous Notes * Utilization Review Notes - Irma Mcnally RN - 10/05/2019 8:32 AM EST OIB following PAROXYSMAL ATRIAL FIBRILLATION ABLATION WITH 3D MAPPING * Plan of Care - Casi Atkins RN - 10/05/2019 3:40 AM EST Problem: Atrial Fibrillation/Atrail Flutter Goal: Patient will have heart rate, rhythm controlled and decreased risk of clot formation Outcome: Progressing Problem: Safety: Fall Risk Goal: Patient will remain free of falls and injury Outcome: Progressing Problem: Pain Management Goal: The patient's stated pain goal will be reached and maintained. Description The patient's stated pain goal will be reached and maintained Outcome: Progressing documented in this encounter Plan of Treatment Not on file documented as of this encounter Procedures Procedure Name Priority Date/Time Associated Diagnosis Comments EK EKG 12 LEAD Routine 10/05/2019 10:57 AM EST ADMIT Routine 10/05/2019 8:32 AM EST ECG AND WAVEFORMS - TELEMETRY Routine 10/05/2019 7:26 AM EST PT / INR Early AM 10/05/2019 5:55 AM EST ECG AND WAVEFORMS - TELEMETRY Routine 10/04/2019 7:04 PM EST ECG AND WAVEFORMS - TELEMETRY Routine 10/04/2019 6:09 PM EST ADMIT Routine 10/04/2019 4:11 PM EST ELECTROPHYSIOLOGY PROCEDURE Routine 10/04/2019 3:53 PM EST Paroxysmal atrial fibrillation (HCC) ACTIVATED CLOTTING TIME LR POC Routine 10/04/2019 3:00 PM EST ACTIVATED CLOTTING TIME LR POC Routine 10/04/2019 2:37 PM EST ACTIVATED CLOTTING TIME LR POC Routine 10/04/2019 2:10 PM EST ACTIVATED CLOTTING TIME LR POC Routine 10/04/2019 1:48 PM EST ACTIVATED CLOTTING TIME LR POC Routine 10/04/2019 1:27 PM EST ACTIVATED CLOTTING TIME LR POC Routine 10/04/2019 1:05 PM EST POCT PT/INR Routine 10/04/2019 8:58 AM EST CBC WITH DIFF STAT 10/04/2019 8:40 AM EST Paroxysmal atrial fibrillation (HCC) BASIC METABOLIC PANEL STAT 10/04/2019 8:40 AM EST Paroxysmal atrial fibrillation (HCC) documented in this encounter Results * EK EKG 12 LEAD (10/05/2019 10:57 AM EST) Anatomical Region Laterality Modality Electrocardiogra phy 10/05/2019 12:0 0 PM EST Impressions 10/05/2019 12:58 PM EST ?[facility] [place] ? Test Date: ?2019-10-05 Pat Name: ? SHAKEEL POON ? Department: ?? DEPID ? Room: ? CSSU11 Gender: ? Male ? Research Compliance Specialist: ?? Ap : ?1950 ? Requested By: MAYCOL FRITZ Order Number: [id number] ?Reading MD: ?? Charles Chaudharyold, MD ? Measurements Intervals ?[place] ? Rate: ? 47 ? P: ?75 IN: ? 204 ?QRS: ?60 QRSD: ? 104 ?T: ?-68 QT: ? 452 ? QTc: ?402 ? Interpretive Statements SINUS BRADYCARDIA WITH SINUS ARRHYTHMIA ST DEVIATION AND MODERATE T-WAVE ABNORMALITY, CONSIDER ANTEROLATERAL ISCHEMIA ST DEVIATION AND MODERATE T-WAVE ABNORMALITY, CONSIDER INFERIOR ISCHEMIA NO OLD EKGS FOR COMPARISON Electronically Signed On 10-05-2019 12:58:01 EST by Charles Cruz MD Narrative Procedure Note Charles Cruz MD - 10/05/[address] [facility] Test Date: 2019-10-05 Pat Name: SHAKEEL POON Department: DEPID Room: [facility] Gender: Male Research Compliance Specialist: Ap : 1950 Requested By: MAYCOL FRITZ Order Number: [id number] Reading MD: Charles Cruz MD Measurements Intervals [place] Rate: 47 P: 75 IN: 204 QRS: 60 QRSD: 104 T: -68 QT: 452 QTc: 402 Interpretive Statements SINUS BRADYCARDIA WITH SINUS ARRHYTHMIA ST DEVIATION AND MODERATE T-WAVE ABNORMALITY, CONSIDER ANTEROLATERALISCHEMIA ST DEVIATION AND MODERATE T-WAVE ABNORMALITY, CONSIDER INFERIOR ISCHEMIA NO OLD EKGS FOR COMPARISON Electronically Signed On 10-05-2019 12:58:01 EST by Charles Cruz MD us Maycol Fritz LIME SUPERVISOR IMG ECG ORDERABLES Final Resul t * ECG AND WAVEFORMS - TELEMETRY (10/05/2019 7:26 AM EST) ECG INTERPRET NSR [facility] PROBATION SUPERVISOR APPROVED Yes [facility] 10/05/2019 7:26 AM EST Narrative [facility] - 10/05/2019 8:52 AM EST ROUTINE SEND KH/AICU ??IN 0.18 ??QRS 0.09 ??RR 1.00 ??QT 0.43 ??QTc 0.43 us Unknown Provider POINT OF CARE CARDIOLOGY Final Result Performing Organization Address [facility] de Phone Number [facility] [address] [place] [address] * (ABNORMAL) PT / INR (10/05/2019 5:55 AM EST) PT 28.5(H) 9.7 - 12.5 second(s) 10/05/2019 6:51 AM EST [facility] INR 2.48(H) 0.86 - 1.10 no units 10/05/2019 6:51 AM EST [facility] Comment: Level of Therapy ? Indications ?Target INR Range Standard Dose Treatment and prophylaxis of venous ? 2.0 - 3.0 ? thrombosis, pulmonary embolism High Dose ? High risk patients with mechanical ? 2.5 - 3.5 ? heart valves Blood VENOUS BLOOD / Unknown Butterfly / Unknown 10/05/2019 5:55 AM EST 10/05/2019 6:20 AM EST us Yousif Thurston MD HEMATOLOGY ORDERABLES Fi nal Result Performing Organization Address [facility] de Phone Number [facility] [address] [facility], [place] [address] * ECG AND WAVEFORMS - TELEMETRY (10/04/2019 7:04 PM EST) ECG INTERPRET NSR [facility] PROBATION SUPERVISOR APPROVED Yes [facility] 10/04/2019 7:04 PM EST Narrative [facility] - 10/04/2019 8:09 PM EST GR/SHANNA WADENE STRIP ??IN 0.19 ??QRS 0.07 ??QT 0.40 ??See Clinical Report link for waveform capture us Unknown Provider POINT OF CARE CARDIOLOGY Final Result Performing Organization Address [facility] de Phone Number [facility] [address] [place] [address] * ECG AND WAVEFORMS - TELEMETRY (10/04/2019 6:09 PM EST) ECG INTERPRET NSR [facility] Comment:with inverted T wave s RN APPROVED Yes [facility] 10/04/2019 6:09 PM EST Narrative [facility] - 10/04/2019 6:24 PM EST JDK\AICU ROUTINE ADMIT ??IN 0.19 ??QRS 0.06 ??QT 0.39 ??See Clinical Report link for waveform capture us Unknown Provider POINT OF CARE CARDIOLOGY Final Result Performing Organization Address [facility] de Phone Number [facility] [address] [place] [address] * PAROXYSMAL ATRIAL FIBRILLATION ABLATION WITH 3D MAPPING (10/04/2019 3:53 PM EST) Narrative [facility] - 10/25/2019 12:43 AM EST Ablation Ablation Site: TV-IVC isthmus, pulmonary veins - . Atrial fibrillation ablation was performed. The ablation was successful. Electroanatomic mapping was performed using Carto (3D). Ablation System used: Stockert 70 and SmartAblate. Radio frequency ablation was performed. The ablation catheter had an open irrigation cool tip. After the ablation, the ECG displayed sinus rhythm. There were no in- lab complications. Duration of energy delivered: 53 minutes. Duration of energy delivered: 58 seconds Total number of energy applications: 70 Total Energy Delivered : [id number] joules Cardioversion Atrial fibrillation was the pre-cardioversion rhythm. Method of cardioversion was synchronous cardioversion. Energy shock delivered: 200 joules. Time shock delivered: 14:26. Sinus rhythm was the post cardioversion rhythm. There were no in-lab complications. Post Intervals Intervals were collected post ablation. Sinus rhythm was observed. Ventricular cycle length: 856 ms IN interval: 157 ms QRS duration: 100 ms QT interval: 390 ms Corrected QT interval: 421.53 ms P-dur interval: 90 AH interval: 93 ms HV interval: 46 ms AV Wenckebach interval: 290 ms AVNERP: 600 / 330 / 220 ms AERP :600 / 200 Yousif Thurston MD ELECTROPHYSIOLOGY ORDERA BLES Final Result Performing Organization Address [facility] Co de Phone Number KP CARDIOLOGY * (ABNORMAL) ACTIVATED CLOTTING TIME LR POC (10/04/2019 3:00 PM EST) ACT-LR >400(H) 89 - 169 second(s) 10/04/2019 3:05 PM EST [facility] Blood BLOOD SPECIMEN / Unknown 10/04/2019 3:00 PM EST 10/04/2019 3:05 PM EST Yousif Thurston MD POINT OF CARE TEST ORDER UMANG Final Result Performing Organization Address [facility] [place] [address] * (ABNORMAL) ACTIVATED CLOTTING TIME LR POC (10/04/2019 2:37 PM EST) ACT-LR >400(H) 89 - 169 second(s) 10/04/2019 2:43 PM EST [facility] Blood BLOOD SPECIMEN / Unknown 10/04/2019 2:37 PM EST 10/04/2019 2:43 PM EST Yousif Thurston MD POINT OF CARE TEST ORDER UMANG Final Result Performing Organization Address [facility] Phone Number [facility] [address] [place] [address] * (ABNORMAL) ACTIVATED CLOTTING TIME LR POC (10/04/2019 2:10 PM EST) ACT-LR >400(H) 89 - 169 second(s) 10/04/2019 2:16 PM EST [facility] Blood BLOOD SPECIMEN / Unknown 10/04/2019 2:10 PM EST 10/04/2019 2:16 PM EST Yousif Thurston MD POINT OF CARE TEST ORDER UMANG Final Result Performing Organization Address [facility] Co de Phone Number [facility] [address] [place] [address] * (ABNORMAL) ACTIVATED CLOTTING TIME LR POC (10/04/2019 1:48 PM EST) ACT-LR >400(H) 89 - 169 second(s) 10/04/2019 1:54 PM EST [facility] Blood BLOOD SPECIMEN / Unknown 10/04/2019 1:48 PM EST 10/04/2019 1:54 PM EST Yousif Thurston MD POINT OF CARE TEST ORDER UMANG Final Result Performing Organization Address [facility] de Phone Number [facility] [address] [place] [address] * (ABNORMAL) ACTIVATED CLOTTING TIME LR POC (10/04/2019 1:27 PM EST) ACT-LR >400(H) 89 - 169 second(s) 10/04/2019 1:32 PM EST [facility] Blood BLOOD SPECIMEN / Unknown 10/04/2019 1:27 PM EST 10/04/2019 1:32 PM EST Yousif Thurston MD POINT OF CARE TEST ORDER UMANG Final Result Performing Organization Address [facility] de Phone Number [facility] [address] [place] [address] * (ABNORMAL) ACTIVATED CLOTTING TIME LR POC (10/04/2019 1:05 PM EST) ACT-LR >400(H) 89 - 169 second(s) 10/04/2019 1:10 PM EST [facility] Blood BLOOD SPECIMEN / Unknown 10/04/2019 1:05 PM EST 10/04/2019 1:10 PM EST Yousif Thurston MD POINT OF CARE TEST ORDER UMANG Final Result Performing Organization Address City/[facility] Co de Phone Number [facility] [address] [place] [address] * (ABNORMAL) POCT PT/INR (10/04/2019 8:58 AM EST) Protime 38.7(A) 11.2 - 13.7 SECONDS [facility] INR 3.2(A) 0.86 - 1.16 [facility] Lot Number [id number] [facility] Expiration Date 2020-06-02 1 [facility] SeriAl # [facility] Blood 10/04/2019 8:58 AM EST us Yousif Thurston MD POINT OF CARE TEST ORDER UMANG Final Result [facility] [address] [place] [address] * (ABNORMAL) CBC WITH DIFF (10/04/2019 8:40 AM EST) Pathologist [facility] WBC 11.5(H) 3.7 - 10.3 x10(3)/mcL 10/04/2019 8:54 AM EST [facility] RBC 5.58 4.60 - 6.10 x10(6)/mcL 10/04/2019 8:54 AM EST [facility] Hgb 17.6(H) 13.7 - 17.5 g/dL 10/04/2019 8:54 AM EST [facility] Hct 50.1 40.0 - 51.0 % 10/04/2019 8:54 AM EST [facility] MCV 89.8 80.0 - 100.0 fL 10/04/2019 8:54 AM EST [facility] MCH 31.5 26.0 - 34.0 pg 10/04/2019 8:54 AM EST [facility] MCHC 35.1 30.7 - 35.5 g/dL 10/04/2019 8:54 AM EST [facility] RDW 12.9 <=14.9 % 10/04/2019 8:54 AM EST [facility] Platelet 283 155 - 369 x10(3)/mcL 10/04/2019 8:54 AM EST [facility] MPV 9.6 8.8 - 12.5 fL 10/04/2019 8:54 AM EST [facility] Neut Percent 66.7 % 10/04/2019 8:54 AM EST [facility] Comment:Neutrophils equals s egs plus bands Imm Gran% 0.7 % 10/04/2019 8:54 AM EST [facility] Comment:Automated count of m etamyelocytes, myelocytes and promyelocytes. Lymph Percent 17.7 % 10/04/2019 8:54 AM EST [facility] [place] Percent 11.9 % 10/04/2019 8:54 AM EST [facility] Eos Percent 2.0 % 10/04/2019 8:54 AM EST [facility] Baso Percent 1.0 % 10/04/2019 8:54 AM EST [facility] Neut # 7.6(H) 1.6 - 6.1 x10(3)/mcL 10/04/2019 8:54 AM EST [facility] Comment:Neutrophils equals s egs plus bands IMMGRAN# 0.1 0.0 - 0.1 x10(3)/[facility] 10/04/2019 8:54 AM EST [facility] Comment:Automated count of m etamyelocytes, myelocytes and promyelocytes. An absolute IG <0.1 is reported as 0.0. Lymph # 2.0 1.2 - 3.9 x10(3)/mcL 10/04/2019 8:54 AM EST [facility] [place] # 1.4(H) 0.3 - 0.9 x10(3)/mcL 10/04/2019 8:54 AM EST [facility] Eos# 0.2 0.0 - 0.5 x10(3)/[facility] 10/04/2019 8:54 AM EST [facility] Baso # 0.1 0.0 - 0.1 x10(3)/[facility] 10/04/2019 8:54 AM EST [facility] Blood VENOUS BLOOD / Unknown Butterfly / Unknown 10/04/2019 8:40 AM EST 10/04/2019 8:49 AM EST us Yousif Thurston MD HEMATOLOGY ORDERABLES Fi nal Result [facility] [address] [facility] , [place] [address] * (ABNORMAL) BASIC METABOLIC PANEL (10/04/2019 8:40 AM EST) Sodium 140 136 - 145 mmol/L 10/04/2019 9:40 AM EST [facility] Potassium 4.1 3.5 - 5.0 mmol/L 10/04/2019 9:40 AM EST [facility] Chloride 101 98 - 107 mmol/L 10/04/2019 9:40 AM EST [facility] Total CO2 18(L) 22 - 29 mmol/L 10/04/2019 9:40 AM EST [facility] Anion Gap 21(H) 7 - 16 mmol/L 10/04/2019 9:40 AM EST [facility] Calcium 9.1 8.8 - 10.4 mg/dL 10/04/2019 9:40 AM EST [facility] Glucose Lvl 137(H) 82 - 100 mg/dL 10/04/2019 9:40 AM EST [facility] BUN 10 8 - 23 mg/dL 10/04/2019 9:40 AM EST [facility] Creatinine 0.80 0.67 - 1.30 mg/dL 10/04/2019 9:40 AM EST [facility] GFR Afr Am 105 >=60 mL/min/1.7 3 m2 10/04/2019 9:40 AM EST [facility] GFR Non Afr Am 91 >=60 mL/min/1.7 3 m2 10/04/2019 9:40 AM EST [facility] Comment: This estimated GFR was calculated using CKD-EPI equation which is modified based on ethnicity for Non Americans and Americans. Both results are reported since it is not always possible to determine the patient's ethnicity. This equation should only be used for individuals 18 and older. It has not been validated for use with the elderly (>70 years), women, or in some racial or ethnic subgroups, such as Hispanics. The equation will be less accurate in people with differences in nutritional status or muscle mass. Blood VENOUS BLOOD / Unknown Butterfly / Unknown 10/04/2019 8:40 AM EST 10/04/2019 8:49 AM EST us Yousif Thurston MD CHEMISTRY ORDERABLES Fin al Result [facility] [employer] [address] [facility] , [place] [address] [facility] [address] [place], [place] [id number] documented in this encounter Visit Diagnoses Diagnosis Paroxysmal atrial fibrillation (HCC)- Primary Atrial fibrillation Paroxysmal atrial fibrillation (HCC) Atrial fibrillation Paroxysmal atrial fibrillation (HCC) Atrial fibrillation documented in this encounter Admitting Diagnoses Diagnosis Paroxysmal atrial fibrillation (HCC) Atrial fibrillation S/P ablation of atrial fibrillation Other postprocedural status documented in this encounter Administered Medications Inactive Administered Medications - up to 1 most recent administrations Medication Order MAR Action Action Date Dose Rate Site acetaminophen (TYLENOL) tablet 1,000 mg 1,000 mg, Oral, PREPROCEDURE, 1 dose, Starting on Shreya 10/04/19 at 0911, Until Tue10/04/19 at 0916, Coanalgesic, Do not give if patient received acetaminophen within the last 6 hours Maximum adult dose of acetaminophen is 4000 mg from all sources in 24 hours. Given 10/04/2019 9:16 AM EST 1,000 mg acetaminophen (TYLENOL) tablet 650 mg 650 mg, Oral, EVERY 4 HOURS PRN, Starting on Shreya 10/04/19 at 1808, Until Tue10/05/19 at 1753, Headaches, Maximum adult dose of acetaminophen is 4000 mg from all sources in 24 hours. , Post-op albuterol (PROVENTIL HFA; VENTOLIN HFA) INHALER 2 Puff 2 Puff, Inhalation, PRN, Starting on Shreya 10/04/19 at 2108, Until Tue10/05/19 at 1753, Wheezing, Shortness of Breath, Waste Sort Code = SP bupivacaine (MARCAINE) 0.5 % (5 mg/mL) injection PRN, Starting on Shreya 10/04/19 at 1239, Until Shreya 10/04/19 at 1553, Intra-procedure(Cath) Given 10/04/2019 12:39 PM EST 10 mL Right Groin fUROsemide (LASix) injection 20 mg 20 mg, Intravenous, ONCE, 1 dose, On Tue10/05/19 at 1030, MAXIMUM ADMINISTRATION RATE = 40 mg/min Given 10/05/2019 11:07 AM EST 20 mg heparin (porcine) 1,000 Units in sodium chloride 0.9 % 1,000 mL IRRIGATION PRN, Starting on Shreya 10/04/19 at 1239, Until Shreya 10/04/19 at 1553, Intra-procedure(Cath) Given 10/04/2019 3:13 PM EST heparin 2 units/ml in 0.9% NaCl 500 mL PRN, Starting on Shreya 10/04/19 at 1239, Until Shreya 10/04/19 at 1553, Intra-procedure(Cath) Given 10/04/2019 12:39 PM EST 1 'Bag' lactated ringers infusion Intravenous, at 100 mL/hr, PREPROCEDURE CONTINUOUS, Starting on Shreya 10/04/19 at 0911, Until Tue10/05/19 at 1753, To be given in SDS/Pre-op Holding Area New Bag 10/04/2019 11:57 AM EST ondansetron (ZOFRAN) injection 4 mg 4 mg, Intravenous, EVERY 6 HOURS PRN, Starting on Shreya 10/04/19 at 1808, Until Tue10/05/19 at 1753, Nausea, Vomiting, Post-op Given 10/04/2019 8:16 PM EST 4 mg oxyCODONE-acetaminophen (PERCOCET) 5-325 mg per tablet 1-2 Tab 1-2 Tablet, Oral, EVERY 4 HOURS PRN, Starting on Shreya 10/04/19 at 1808, Until 10/05/19 at 1753, Pain, Pain Unrelieved by Oral Non-Opioid Therapy, Begin with lowest dose unless otherwise directed. Reassess pain in one hour. If pain unrelieved, remainder of dose may be given to patient. Maximum adult dose of acetaminophen is 4000 mg from all sources in 24 hours. , Post-op Given 10/04/2019 6:53 PM EST 1 Tablet pantoprazole (PROTONIX) 40 mg in sodium chloride 10 mL injection 40 mg, Intravenous, PREPROCEDURE, 1 dose, Starting on Shreya 10/04/19 at 0912, Until Shreya 10/04/19 at 0915, Preprocedure, Administer in CCR for A-fib cryoablation, Dx: 1. Paroxysmal atrial fibrillation (HCC) 1. Paroxysmal atrial fibrillation (HCC)Indications:Paroxysm al atrial fibrillation (HCC) Given 10/04/2019 9:15 AM EST 40 mg pantoprazole (PROTONIX) tablet 40 mg 40 mg, Oral, 2 TIMES DAILY, First dose on Srheya 10/04/19 at 2100, Until Discontinued, Do not crush or chew Given 10/05/2019 9:07 AM EST 40 mg sodium chloride 0.9% IV line flush 20-50 mL 20-50 mL, Intravenous, at 150-600 mL/hr, PRN, Starting on Shreya 10/04/19 at 1606, Until Tue10/05/19 at 1753, Line Care, Flush with a minimum of 20 mL after IVPB to insure complete administration of the dose. May use the saline infusion to back flush IVPB tubing as needed. sodium chloride 0.9% syringe Intravenous, EVERY 8 HOURS SCHEDULED (3 times per day), First dose on Shreya 10/04/19 at 1615, Until Discontinued, Flush with 3-5 mL saline for PERIPHERAL saline lock maintenance. Given 10/05/2019 5:10 AM EST 5 mL sodium chloride 0.9% syringe Intravenous, PRN, Starting on Shreya 10/04/19 at 1606, Until Tue10/05/19 at 1753, Line Care, Flush with 5-10 mL saline pre/post IVP, and 5 mL prior to IVPB or blood product administration. sotalol (BETAPACE) tablet 120 mg 120 mg, Oral, EVERY 12 HOURS SCHEDULED (2 times per day), First dose on Shreya 10/04/19 at 2100, Until Discontinued Given 10/05/2019 9:07 AM EST 120 mg tiotropium bromide (SPIRIVA RESPIMAT) inhalation mist 2 Puff 2 Puff, Inhalation, DAILY AM(RESP CARE), First dose on Shreya 10/04/19 at 2115, Until Discontinued Given 10/05/2019 8:56 AM EST 2 Puffs vancomycin (VANCOCIN) 1,300 mg in sodium chloride 0.9 % 275 mL IVPB 1,300 mg, Intravenous, ONCE, 1 dose, On Shreya 10/04/19 at 1530, Administer over 90 Minutes, To be infused just prior to entering procedure room VESICANT , Pre-Procedure(Cath) IV Started 10/04/2019 12:30 PM EST 1,000 mg 183.3 mL/hr documented in this encounter Discontinued Medications Medication Sig Discontinue Reason Start Date End Da te metoprolol (LOPRESSOR) 50 mg Oral TabletIndications:Atria l fibrillation, unspecified type (HCC) Take 50 mg by mouth 2 times daily. Stop Taking at Discharge 08/27/2019 10/05/2019 documented as of this encounter Active and Recently Administered Medications Times are shown in EST. Scheduled Medication Order 10/03/2019 10/04/2019 10/05/2019 fUROsemide (LASix) injection 20 mg (COMPLETED) 20 mg, Intravenous, ONCE, 1 dose, On Tue10/05/19 at 1030, MAXIMUM ADMINISTRATION RATE = 40 mg/min 1107 (Given - Provid er: Ines Gloria RN) pantoprazole (PROTONIX) tablet 40 mg 40 mg, Oral, 2 TIMES DAILY, First dose on Shreya 10/04/19 at 2100, Until Discontinued, Do not crush or chew 2052 (Given - Provider: Casi Atkins RN) 0907 (Given - Provider: Ines Gloria RN) sodium chloride 0.9% syringe Intravenous, EVERY 8 HOURS SCHEDULED (3 times per day), First dose on Shreya 10/04/19 at 1615, Until Discontinued, Flush with 3-5 mL saline for PERIPHERAL saline lock maintenance. 1615 (Not Given - Provider: Ines Gloria RN - Reason: Patient not available)2200 (Given - Provider: Casi Atkins RN) 0510 (Given - Provider: Casi Atkins RN) sotalol (BETAPACE) tablet 120 mg 120 mg, Oral, EVERY 12 HOURS SCHEDULED (2 times per day), First dose on Shreya 10/04/19 at 2100, Until Discontinued 2052 (Given - Provider: Casi Atkins RN) 0907 (Given - Provider: Ines Gloria RN) tiotropium bromide (SPIRIVA RESPIMAT) inhalation mist 2 Puff(Linked Group 1) 2 Puff, Inhalation, DAILY AM(RESP CARE), First dose on Shreya 10/04/19 at 2115, Until Discontinued 0856 (Given - Provid er: April Bernal, CONTROL CENTER OPERATOR) vancomycin (VANCOCIN) 1,300 mg in sodium chloride 0.9 % 275 mL IVPB (COMPLETED) 1,300 mg, Intravenous, ONCE, 1 dose, On Shreya 10/04/19 at 1530, Administer over 90 Minutes, To be infused just prior to entering procedure room VESICANT , Pre-Procedure(Cath) 1230 (IV Started - Provider: Dawn Bernard, DARYL)1400 (Stopped - Provider: Dawn Bernard RN) PRN Medication Order 10/03/2019 10/04/2019 10/05/2019 acetaminophen (TYLENOL) tablet 1,000 mg (COMPLETED) 1,000 mg, Oral, PREPROCEDURE, 1 dose, Starting on Shreya 10/04/19 at 0911, Until Shreya 10/04/19 at 0916, Coanalgesic, Do not give if patient received acetaminophen within the last 6 hours Maximum adult dose of acetaminophen is 4000 mg from all sources in 24 hours. 0916 (Given - Provider: Shayy Ugalde RN) acetaminophen (TYLENOL) tablet 650 mg 650 mg, Oral, EVERY 4 HOURS PRN, Starting on Shreya 10/04/19 at 1808, Until Tue10/05/19 at 1753, Headaches, Maximum adult dose of acetaminophen is 4000 mg from all sources in 24 hours. , Post-op albuterol (PROVENTIL HFA; VENTOLIN HFA) INHALER 2 Puff(Linked Group 1) 2 Puff, Inhalation, PRN, Starting on Shreya 10/04/19 at 2108, Until Tue10/05/19 at 1753, Wheezing, Shortness of Breath, Waste Sort Code = SP bupivacaine (MARCAINE) 0.5 % (5 mg/mL) injection (CANCELED) PRN, Starting on Shreya 10/04/19 at 1239, Until Shreya 10/04/19 at 1553, Intra-procedure(Cath) 1239 (Given - Provider: Yousif Thurston MD) heparin (porcine) 1,000 Units in sodium chloride 0.9 % 1,000 mL IRRIGATION (CANCELED) PRN, Starting on Shreya 10/04/19 at 1239, Until Shreya 10/04/19 at 1553, Intra-procedure(Cath) 1239 (Given - Provider: Cecilia Dye RT)1239 (Given - Provider: RT Seth)1400 (Given - Provider: Cecilia E Esswein, RT)1513 (Given - Provider: Cecilia Dye, RT) heparin 2 units/ml in 0.9% NaCl 500 mL (CANCELED) PRN, Starting on Shreya 10/04/19 at 1239, Until Shreya 10/04/19 at 1553, Intra-procedure(Cath) 1239 (Given - Provider: Cecilia Dye, RT)1256 (Canceled Entry - Provider: Koko Cervantes CRNA) lactated ringers infusion Intravenous, at 100 mL/hr, PREPROCEDURE CONTINUOUS, Starting on Shreya 10/04/19 at 0911, Until Tue10/05/19 at 1753, To be given in SDS/Pre-op Holding Area 0916 (New Bag - Provider: Shayy Ugalde RN)1157 (New Bag - Provider: Koko Cervantes CRNA)1553 (Stopped - Provider: Koko Cervantes CRNA) ondansetron (ZOFRAN) injection 4 mg 4 mg, Intravenous, EVERY 6 HOURS PRN, Starting on Shreya 10/04/19 at 1808, Until Tue10/05/19 at 1753, Nausea, Vomiting, Post-op 2016 (Given - Provider: Santosh Montejo RN) oxyCODONE-acetaminophen (PERCOCET) 5-325 mg per tablet 1-2 Tab 1-2 Tablet, Oral, EVERY 4 HOURS PRN, Starting on Shreya 10/04/19 at 1808, Until 10/05/19 at 1753, Pain, Pain Unrelieved by Oral Non-Opioid Therapy, Begin with lowest dose unless otherwise directed. Reassess pain in one hour. If pain unrelieved, remainder of dose may be given to patient. Maximum adult dose of acetaminophen is 4000 mg from all sources in 24 hours. , Post-op 1853 (Given - Provider: Domi Gloria RN) pantoprazole (PROTONIX) 40 mg in sodium chloride 10 mL injection (COMPLETED) 40 mg, Intravenous, PREPROCEDURE, 1 dose, Starting on Shreya 10/04/19 at 0912, Until Shreya 12 at 0915, Preprocedure, Administer in CCR for A-fib cryoablation, Dx: 1. Paroxysmal atrial fibrillation (HCC) 1. Paroxysmal atrial fibrillation (HCC) 0915 (Given - Provider: Shayy Ugalde RN) sodium chloride 0.9% IV line flush 20-50 mL 20-50 mL, Intravenous, at 150-600 mL/hr, PRN, Starting on Shreya 10/04/19 at 1606, Until Tue10/05/19 at 1753, Line Care, Flush with a minimum of 20 mL after IVPB to insure complete administration of the dose. May use the saline infusion to back flush IVPB tubing as needed. sodium chloride 0.9% syringe Intravenous, PRN, Starting on Shreya 10/04/19 at 1606, Until Tue10/05/19 at 1753, Line Care, Flush with 5-10 mL saline pre/post IVP, and 5 mL prior to IVPB or blood product administration. Linked Groups Order Group 1: tiotropium bromide (SPIRIVA RESPIMAT) inhalation mist 2 PuffJump to med 2 Puff, Inhalation, DAILY AM(RESP CARE), First dose on Shreya 10/04/19 at 2115, Until Discontinued And albuterol (PROVENTIL HFA; VENTOLIN HFA) INHALER 2 PuffJump to med 2 Puff, Inhalation, PRN, Starting on Shreya 10/04/19 at 2108, Until Tue10/05/19 at 1753, Wheezing, Shortness of Breath, Waste Sort Code = SP documented in this encounter Orders Medications Ordered That Allan ht Not Have Been Administered Count Last Ordered Date First Ordered Date acetaminophen (TYLENOL) tablet 650 mg 1 02/2019 albuterol (PROVENTIL HFA; VE NTOLIN HFA) INHALER 2 Puff 1 10/04/2019 dimenhyDRINATE (DRAMAMINE) i njection 12.5-25 mg 1 10/04/2019 fentaNYL (SUBLIMAZE) injection 25 mcg 1 02/2019 HYDROmorphone (DILAUDID) injection 0.5 mg 1 10/04/2019 ondansetron (ZOFRAN) injection 4 mg 1 10/04 ondansetron (ZOFRAN-ODT) dis integrating tablet 8 mg 1 10/04/2019 oxyCODONE (ROXICODONE) immed iate release tablet 5 mg 1 10/04/2019 promethazine (PHENERGAN) 12. 5 mg in sodium chloride 10 mL injection 1 10/04/2019 promethazine (PHENERGAN) 6.2 5 mg in sodium chloride 10 mL injection 1 10/04/2019 sodium chloride 0.9% IV line flush 20-50 mL 1 10/04/2019 sodium chloride 0.9% syringe 1 10/04/2019 tiotropium bromide (SPIRIVA RESPIMAT) inhalation mist 2 Puff 1 10/04/2019 Admission Count Last Ordered Date First Orde red Date ADMIT 2 10/05/2019 10/04/2019 Discharge Count Last Ordered Date First Orde red Date DISCHARGE PATIENT 1 10/05/2019 documented in this encounter
--- OUTSIDE RECORDS SUMMARY | 2024-09-18 11:08 | XMS_ITS | Encounter Summary ---
Author Organization Healthcare Address [address] [place] [address] Care Team Providers Care Industrial Cook Name Role Phone Unavailable Primary Care Provider Unavailabl e Encounter Details Date Type Department Care Team (Latest Contact Info) Description 12/30/2022 12:15 PM EST Ancillary Procedure [facility] [address] [place] [address] [place] [address] Pneumonia; Hypoxic; Respiratory failure (CMS/HCC) Social History Tobacco Use Types Packs/Day Years Used Date Smoking Tobacco: Never Assessed Sex and Gender Information Value Date Recorded Sex Assigned at Not on file Legal Sex Male 7:32 PM EDT Gender Identity Not on file Sexual Orientation Not on file documented as of this encounter Plan of Treatment Not on file documented as of this encounter Procedures Procedure Name Priority Date/Time Associated Diagnosis Comments ADULT ECHO OUTSIDE READ Routine 12/30/2022 12:13 PM EST Pneumonia Hypoxic Respiratory failure (CMS/HCC) documented in this encounter Results * ADULT ECHO OUTSIDE READ (12/30/2022 12:13 PM EST) Baseline Systolic BP 135 KP ISCV Baseline Diastolic BP 76 KP ISCV Heart Rate 64 KP ISCV Height 182.9 KP ISCV Weight 86.2 PK ISCV BSA 2.08 m2 KP ISCV LVIDd 45 mm KP ISCV LVIDs 30 mm KP ISCV IVSd 20 mm KP ISCV LVPWd 10 mm KP ISCV LV RWT 0.67 mm KP ISCV MV E Vmax 7.6 cm/s KP ISCV MV A Vmax 5.8 cm/s KP ISCV MV E/A 1.3 cm/s KP ISCV LV Lat e' Velocity 7.8 cm/s KP ISCV LV Sept e' Kishan 6.6 cm/s KP ISCV Lat E/e' 1.0 KP ISCV Sep E/e' 1.2 KP ISCV Avg E/e' 1.1 KP ISCV LAV(MOD-bp) Indexed 26 mL/m2 KP ISCV LAV(MOD-4ch) 56 mL KP ISCV LAV(MOD-2ch) 53 mL KP ISCV Ao Root Diam 42 mm KP ISCV Anatomical Region Laterality Modality Echocardiography Narrative 12/30/2022 2:32 PM EST ?There is no recent study available for direct [id number] comparison. ?? Left Ventricle The left ventricle is not well visualized, but is grossly normal in size. The left ventricular systolic function is normal. The LVEF is visually estimated at 60 - 70%. The diastolic function is normal. No regional wall motion abnormalities are seen. Right Ventricle The right ventricle is grossly normal in size. A catheter/lead is present in the right ventricle. The right ventricular systolic function is grossly normal. Unable to estimate RVSP due to inadequate TR signal. Left Atrium The left atrial size is normal. The interatrial septum is intact with no evidence for an atrial septal defect. Right Atrium The right atrial size is normal. There is a catheter/lead present in the right atrium. IVC/SVC Based on the IVC size and respiratory variation, the estimated right atrial pressure is 3mmHg. Mitral Valve The mitral valve is grossly normal. There is no mitral regurgitation. There is no mitral stenosis. Tricuspid Valve The tricuspid valve is grossly normal in appearance. There is no tricuspid regurgitation. There is no tricuspid stenosis. Aortic Valve The aortic valve appears grossly normal. There is no valvular regurgitation. There is no hemodynamically significant valvular aortic stenosis. Pulmonic Valve The pulmonic valve was not well visualized. There is no pulmonic regurgitation. There is no pulmonic stenosis. Pericardium No pericardial effusion. Great Vessels The aortic root is mildly dilated. The ascending aorta is not well visualized. The aortic arch is not well visualized. The main pulmonary artery is not well visualized. Study Details This complete 2D, M-mode, and Doppler transthoracic echocardiogram was performed on site at [facility] ([place], [place]) and interpreted remotely by faculty at the [facility] ([place], [place]). BP: 135/76 mmHg. Heart Rate: 64 bpm. Height: 182.9 cm. Weight: 86.2 kg. BSA: 2.08 m2. Study Recommendation There is no recent study available for direct [id number]-[id number] comparison. us Quinton Temple MD CV ECHO PROCEDURES Final Res ult documented in this encounter Visit Diagnoses Diagnosis Pneumonia Pneumonia, organism unspecified Hypoxic Hypoxemia Respiratory failure ([facility]) Acute respiratory failure documented in this encounter
--- OUTSIDE RECORDS SUMMARY | 2024-09-18 11:08 | XMS_ITS | Encounter Summary ---
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 for AF) Social History Tobacco Use Types Packs/Day Years Used Date Smoking Tobacco: Never Assessed Sex and Gender Information Value Date Recorded Sex Assigned at Not on file Legal Sex Male 4:44 AM EDT Gender Identity Not on file Sexual Orientation Not on file documented as of this encounter Miscellaneous Notes * Telephone Encounter - Shanon Crane MA - 09/03/2019 2:40 PM EST Asked patient to return the call for scheduling 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
--- OUTSIDE RECORDS SUMMARY | 2024-09-18 11:08 | XMS_ITS | Encounter Summary ---
Author Organization [place] [address] Care Team Providers Care Larriman Name Role Phone Unavailable Primary Care Provider Unavailabl e Reason for Visit * Auth/Cert/Inpt Specialty Diagnoses / Procedures Referred By Diane t Referred To Contact Diagnoses Paroxysmal atrial fibrillation (HCC) Paroxysmal atrial fibrillation (HCC) [I48.0] Procedures SC INTRACARDIAC ELECTROPHYSIOLOGIC 3D MAPPING SC EPHYS EVL TRNSPTL TX ATRIAL FIB ISOLAT PULM VEIN SC ICAR CATHETER ABLATION ARRHYTHMIA ADD ON SC INTRACARD ECHO, THER/DX INTERVENT PAROXYSMAL ATRIAL FIBRILLATION ABLATION WITH 3D MAPPING Referral ID Status Reason Start Date Expiration Date Visits Re quested Visits Authorized [id number] 1 1 Encounter Details Date Type Department Care Team (Late st Contact Info) Description 10/04/2019 12:11 PM EST Anesthesia Event EDG DISPLAY DEPARTMENT MANAGER [facility] [address] [place] [id number] Luis Jacques MD [address] [place] [address] [place] [address] Modesta Esteves APRN [address] [facility] [address] [place] [address] Anesthesia Record Procedure Summary Procedure Name Responsible Anesthesiologist Anesthesia Start Time Anesthesia Stop Time PAROXYSMAL ATRIAL FIBRILLATION ABLATION WITH 3D MAPPING Luis Jacques MD 10/04/19 1211 10/04/19 1604 Events Date Time Event Comment 10/04/2019 1012 1157 AN Equip Check 1211 An Start 1212 An Start Data 1212 Immediate Pre Anesthetic Ass es 1219 An Induction 1221 An Intubation 1223 Anesthesia Ready 1224 Quick Note Vancomycin 1g i n 500 0.9% ns ivpb started per dr jc 1227 an leland now 1232 an leland now 1239 Time out 1240 Incision 1248 Relief IN Intraoperative Care Transition performed including relevant patient background, intraoperative management, procedure stage, recent or potential changes, recommended plan of care with receipt of care. 1428 Relief IN Intraoperative Care Transition performed including relevant patient background, intraoperative management, procedure stage, recent or potential changes, recommended plan of care with receipt of care. 1542 An Extubation 1553 an stop data 1604 Handoff I completed my SBAR handoff to the receiving nurse which has included the followin. Identification of the patient, family, or patient surrogate 2. Identification of the responsible practitioner 3. Pertinent medical history 4. Surgical procedure and reason for procedure 5. Intraoperative anesthetic management 6. All current lines, drains and respiratory support. 7. Outstanding follow up orders (X-rays, consults etc) 8. Expectations/Plans for the early post-procedure period 9. Opportunity for questions and acknowledgement of understanding from the receiving PACU/ICU sports team marketing intern 1604 An Stop Meds Name Total lidocaine injection 1% 100 mg fentaNYL 50 MCG/ML INJ 300 mcg propofol (DIPRIVAN) injection 120 mg rocuronium (ZEMURON) 10 mg/mL injection 10 mg succinylcholine (ANECTINE) 20 mg/mL inje ction 180 mg ephedrine injection 50 mg dexamethasone (DECADRON) injection 4 mg/ mL 4 mg ondansetron (ZOFRAN) injection 4 mg /2 m L 4 mg digoxin (LANOXIN) injection 1,000 mcg heparin (porcine) injection 1,000 units/ mL 14,000 Units heparin 25,000 units in 250 mL 0.45% NaC l 2,660 Units protamine injection 50 mg lactated ringers infusion 1,000 mL lactated ringers infusion 0 mL * Agents Name O2 Et Sevoflurane * Blood No blood administrations on file. Lines, Drains, and Airways Type Details Placement Removal Peripheral IV 10/04/19; 18; Left; Antecubital; (inserted by other but not documented); 10/05/19; 1329; Therapy completed; Catheter intact, Dressing applied, No Complications 10/04/19 0000 by Ines Shin, RN 10/05/19 1329 by Ines Garcia, RN Airway Device: ETT- Cuffed; Size: 7.5 mm; Placement Date: 10/04/19; Placement Time: 1221 (created via procedure documentation); Removal Date: 10/04/19; Removal Time: 1542 10/04/19 1221 by Koko Cervantes CRNA 10/04/19 1542 by Koko Cervantes CRNA Venous Sheath 10/04/19; 1241; Righ t femoral vein; 9 fr (additional 2-8.5fr); G.Esswein 10/04/19 1241 by Dawn Bernard RN 10/04/19 1527 by Dawn Bernard RN documented in this encounter Social History Tobacco Use Types Packs/Day Years Used Date Smoking Tobacco: Former Cigarettes Smokeless Tobacco: Never Sex and Gender Information Value Date Recorded Sex Assigned at Not on file Legal Sex Male 4:44 AM EDT Gender Identity Not on file Sexual Orientation Not on file documented as of this encounter Procedure Notes * Koko Cervantes CRNA - 10/04/2019 12:42 PM ESTAssociated Order(s): Airway Intraop Airway Placement: Date/Time: 10/04/2019 12:21 PM Induction type: IV Mask size: Large adult Pre-Oxygenation: BMI guided pre-O2 and Standard Mask ventilation: Easy mask ventilation Technique: Video laryngoscope Laryngoscope blade: Huitron Blade size: 3 Grade view: I Airway type: ETT- cuffed Topical Anesthetic/Lubricant: Lubricant jelly Intubation assist devices: Stylet 14fr Airway location: Oral Device size: 7.5mm Secured at: 21 cm Secured by: Tape Measured from: Lips Placement verified: Auscultation, End tidal CO2 and Symmetric chest wall motion Condition: Atraumatic and Unchanged Insertion attempts: 1 Title: STORAGE RECEIPT POSTER documented in this encounter OR Notes * Anesthesia Postprocedure Evaluation - Chao Santos MD - 10/04/2019 8:35 PM EST Post-Anesthesia Evaluation Note Patient Name: Shakeel Poon Patient Date: October 04, 2019 Post-Anesthesia Evaluation : CSSU. Post op vitals: stable Nausea controlled: yes Level of consciousness: awake, alert and oriented Post anesthesia pain: adequate analgesia Long acting local anesthetic: n/a Airway patency: patent Respiratory status: spontaneous ventilation and nasal canula Cardiovascular status: stable Hydration status: euvolemic Perioperative complications: NONE Vitals: 10/04/19 1932 BP: 167/81 Pulse: 62 Resp: Temp: SpO2: * Anesthesia Preprocedure Evaluation - Luis Jacques MD - 10/02/2019 4:39 PM EST Images from the original note were not included. Pre-Anesthesia Evaluation Note Patient Name: Shakeel Poon Sex: male Patient : 1950 Age: 69 y.o. Patient Date: October 02, 2019 Procedure(s): PAROXYSMAL ATRIAL FIBRILLATION ABLATION WITH 3D MAPPING Anesthesia Evaluation No previous anesthesia. 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 Anesthesia Plan ASA 3 Last solid intake: The patient has not eaten within the last 8 hours. Last clear liquid intake: The patient has not had clear liquids within the last 2 hours. Anesthesia Plan: general Induction: intravenous Monitors: STD PONV Risk Score: 0. Score of 0-1 is Low Risk for PONV, antiemetic prophylaxis is not indicated but may still be given. Informed consent Anesthetic plan and risks discussed with: patient and family. Chart Reviewed and patient examined documented in this encounter Plan of Treatment Not on file documented as of this encounter Procedures Procedure Name Priority Date/Time Associated Diagnosis Comments INTRAOP AIRWAY PLACEMENT Routine 10/04/2019 12:42 PM EST documented in this encounter Results * INTRAOP AIRWAY PLACEMENT (10/04/2019 12:42 PM EST) Narrative [facility] - 10/04/2019 12:42 PM EST Koko Cervantes CRNA ? 10/04/2019 12:42 PM Intraop Airway Placement: Date/Time: 10/04/2019 12:21 PM ??Induction type: ??IV ??Mask size: ??Large adult ??Pre-Oxygenation: ??BMI guided pre-O2 and Standard ??Mask ventilation: ??Easy mask ventilation ??Technique: ??Video laryngoscope ??Laryngoscope blade: ??Huitron ??Blade size: ??3 ??Grade view: ??I ??Airway type: ??ETT- cuffed ??Topical Anesthetic/Lubricant: ??Lubricant jelly ??Intubation assist devices: ??Stylet 14fr ??Airway location: ??Oral ??Device size: ??7.5mm ??Secured at: 21 cm ??Secured by: ??Tape ??Measured from: ??Lips ??Placement verified: ??Auscultation, End tidal CO2 and Symmetric chest wall motion ??Condition: ??Atraumatic and Unchanged ??Insertion attempts: ??1 ??Title: ??STORAGE RECEIPT POSTER Luis Jacques MD SC ANESTHESIA Final Result Performing Organization Address [facility]/State/[facility] Co de Phone Number [facility] [address] [place], [place] [id number] documented in this encounter Visit Diagnoses Not on filedocumented in this encounter Administered Medications Inactive Administered Medications - up to 1 most recent administrations Medication Order MAR Action Action Date Dose Rate Site dexamethasone (DECADRON) injection PRN (Anesthesia), Starting on Shreya 10/04/19 at 1222, Until Shreya 10/04/19 at 1604, Anesthesia Intra-op Given 10/04/2019 12:22 PM EST 4 mg digoxin (LANOXIN) injection PRN (Anesthesia), Starting on Shreya 12/19 at 1227, Until Shreya 10/04/19 at 1604, Anesthesia Intra-op Given 10/04/2019 12:32 PM EST 500 mcg ePHEDrine injection Intravenous, PRN (Anesthesia), Starting on Shreya 10/04/19 at 1247, Until Shreya 10/04/19 at 1604, Anesthesia Intra-op Given 10/04/2019 2:13 PM EST 20 mg fentaNYL (SUBLIMAZE) injection Intravenous, PRN (Anesthesia), Starting on Shreya 10/04/19 at 1219, Until Shreya 10/04/19 at 1604, Anesthesia Intra-op Given 10/04/2019 3:53 PM EST 50 mcg heparin (porcine) injection PRN (Anesthesia), Starting on Shreya 10/04/19 at 1251, Until Shreya 10/04/19 at 1604, Anesthesia Intra-op Given 10/04/2019 12:51 PM EST 14,000 Units heparin 25,000 units in 250 mL 0.45% NaCl CONTINUOUS PRN, Starting on Shreya 10/04/19 at 1252, Until Shreya 10/04/19 at 1604, Anesthesia Intra-op Rate/Dose Change 10/04/2019 2:43 PM EST 1,000 Units/hr 10 mL/hr lactated ringers infusion Intravenous, at 100 mL/hr, PREPROCEDURE CONTINUOUS, Starting on Shreya 10/04/19 at 0911, Until Tue10/05/19 at 1753, To be given in SDS/Pre-op Holding Area New Bag 10/04/2019 11:57 AM EST lidocaine 1% 10 mg/mL (1 %) injection Intravenous, PRN (Anesthesia), Starting on Shreya 10/04/19 at 1536, Until Shreya 10/04/19 at 1604, Anesthesia Intra-op Given 10/04/2019 3:38 PM EST 20 mg ondansetron (ZOFRAN) injection PRN (Anesthesia), Starting on Shreya 10/04/19 at 1222, Until Shreya 10/04/19 at 1604, Anesthesia Intra-op Given 10/04/2019 12:22 PM EST 4 mg propofol (DIPRIVAN) injection Intravenous, PRN (Anesthesia), Starting on Shreya 10/04/19 at 1219, Until Shreya 10/04/19 at 1604, Anesthesia Intra-op Given 10/04/2019 12:19 PM EST 120 mg protamine injection PRN (Anesthesia), Starting on Shreya 10/04/19 at 1525, Until Shreya 10/04/19 at 1604, Anesthesia Intra-op Given 10/04/2019 3:25 PM EST 50 mg rocuronium (ZEMURON) injection Intravenous, PRN (Anesthesia), Starting on Shreya 10/04/19 at 1219, Until Shreya 10/04/19 at 1604, Anesthesia Intra-op Given 10/04/2019 12:19 PM EST 10 mg succinylcholine (ANECTINE) injection Intravenous, PRN (Anesthesia), Starting on Shreya 10/04/19 at 1220, Until Shreya 10/04/19 at 1604, Anesthesia Intra-op Given 10/04/2019 12:20 PM EST 180 mg documented in this encounter
--- OUTSIDE RECORDS SUMMARY | 2024-09-18 11:08 | XMS_ITS | Encounter Summary ---
Author Organization [place] [address] Care Team Providers Care Divisional Storekeeper Name Role Phone Unavailable Primary Care Provider Unavailabl e Reason for Visit * Reason Comments New Patient mold maker plaster ref by PCP for AF , MDT D PPM to be checked, meds chk per pt report Encounter Details Date Type Department Care Team (Late st Contact Info) Description 09/07/2019 1:00 PM EST Office Visit [facility] Arrhythmia Ctr Edg [address] [facility] [address] [place] [address] Yousif Thurston MD [address] [place], [place] [id number] Atrial fibrillation, unspecified type (HCC) (Primary Dx) Social History Tobacco Use Types Packs/Day Years Used Date Smoking Tobacco: Former Cigarettes Smokeless Tobacco: Never Sex and Gender Information Value Date Recorded Sex Assigned at Not on file Legal Sex Male 4:44 AM EDT Gender Identity Not on file Sexual Orientation Not on file documented as of this encounter Last Filed Vital Signs Vital Sign Reading Time Taken Comments Blood Pressure 118/78 09/07/2019 12:56 PM EST Pulse 44 09/07/2019 12:56 PM EST Temperature - - Respiratory Rate - - Oxygen Saturation 95% 09/07/2019 12: 56 PM EST Inhaled Oxygen Concentration - - Weight 86.5 kg (190 lb 12.8 oz) 019 12:56 PM EST Height 180.3 cm (5' 11 ) 09/07/2019 12: 56 PM EST Body Mass Index 26.61 09/07/2019 12:56 PM EST documented in this encounter Progress Notes * Yousif Thurston MD - 09/07/2019 1:00 PM EST Subjective: Patient ID: Shakeel Poon is a 68 y.o. male. Chief Complaint Patient presents with ??? New Patient mold maker plaster ref by PCP for AF, RAFFI Taylor PPM to be checked, meds chk per pt report We have been asked by Dr. Guadalupe ref. provider found to provide initial consultation on Shakeel Knox This is a chronic (Hx of AF) problem. The current episode started more than 1 year ago (05). The problem occurs every several days. The [...] (i.e. female sex) Male = 0 0 [id number] Score 3 1. Sinus bradycardia with first degree AV block 2. Dual chamber pacemaker - battery - implanted 2005 3. Paroxysmal atrial fibrillation 4. CAD s/p CABG 2004 --> Last [facility] 2017, failed grafts with patent apache coronary arteries per patient 5. COPD Symptomatic [...] of the procedure. documented in this encounter Miscellaneous Notes * Patient Instructions - Joel Vera MA - 09/07/2019 1:00 PM EST You may be contacted by mail or e-mail to participate in a patient satisfaction survey regarding your office visit today. We value your opinion and depend on your feedback to make improvements and provide you with the best possible experience while receiving high quality medical treatment. Your time in completing this survey is greatly appreciated. documented in this encounter Plan of Treatment Not on file documented as of this encounter Procedures Procedure Name Priority Date/Time Associated Diagnosis Comments PACEART REPORT Routine 09/07/2019 7:44 PM EST Atrial fibrillation, unspecified type (HCC) POCT EKG Routine 09/07/2019 1:05 PM EST Atrial fibrillation, unspecified type (HCC) documented in this encounter Results * PACEART REPORT (09/07/2019 7:44 PM EST) 09/07/2019 7:44 PM EST Yousif Thurston MD [facility] CARDIAC CATH ORDERAB LES Final Result Performing Organization Address [facility]/ZIP Co de Phone Number [facility] [address] [place] [address] * POCT EKG (09/07/2019 1:05 PM EST) 09/07/2019 1:05 PM EST Impressions SEP OFFICE - 09/07/2019 1:05 PM EST Sinus bradycardia with first-degree AV block Yousif Thurston MD POINT OF CARE CARDIOLOGY Final Result Performing Organization Address [facility]/ZIP Co de Phone Number SEP OFFICE documented in this encounter Visit Diagnoses Diagnosis Atrial fibrillation, unspecified type (HCC)- Primary documented in this encounter Historical Medications * This list may reflect changes made after this encounter. tiotropium bromide (SPIRIVA RESPIMAT) 2.5 mcg/actuation Inhl MistIndications:At rial fibrillation, unspecified type (HCC) Inhale 2 Puffs into the lungs daily at 0900. atorvastatin (LIPITOR) 80 mg Oral TabletIndications: Atrial fibrillation, unspecified type (HCC) Take 80 mg by mouth daily. warfarin (COUMADIN) 5 mg Oral TabletIndications: Atrial fibrillation, unspecified type (HCC) 0 08/14/2019 01/28/2020 metoprolol (LOPRESSOR) 50 mg Oral TabletIndications: Atrial fibrillation, unspecified type (HCC) Take 50 mg by mouth 2 times daily. 0 08/27/2019 10/05/2019 added in this encounter
--- OUTSIDE RECORDS SUMMARY | 2024-09-18 11:08 | XMS_ITS | Encounter Summary ---
Author Organization [place] [address] Care Team Providers Care Reed Cleaner Name Role Phone Unavailable Primary Care Provider Unavailabl e Encounter Details Date Type Department Care Team (Late st Contact Info) Description 12/27/2000 1:51 PM EST - 12/28/2000 11:59 PM EST Hospital Encounter HST PT GRT Melvin Sapp MD [address] [place] [address] Social History Tobacco Use Types [...]
--- OUTSIDE RECORDS SUMMARY | 2024-09-18 11:08 | XMS_ITS | Encounter Summary ---
Author Organization [place] [address] Care Team Providers Care Health Researcher Name Role Phone Unavailable Primary Care Provider Unavailabl e Encounter Details Date Type Department Care Team (Late st Contact Info) Description 03/24/2003 4:52 PM EDT - 03/24/2003 11:59 PM EDT Hospital Encounter [facility] ER GRT Vinay Montejo MD Social History Tobacco Use Types Packs/Day Years [...]
--- OUTSIDE RECORDS SUMMARY | 2024-09-18 11:08 | XMS_ITS | Encounter Summary ---
Author Organization [place] [address] Care Team Providers Care Senior Sustainability Consultant Name Role Phone Unavailable Primary Care Provider Unavailabl e Reason for Referral * MRI/CAT Scan (Routine) - Closed Specialty Diagnoses / Procedures Referred By Diane arzate Referred To Contact Radiology Diagnoses Encounter for preprocedural cardiovascular examination Paroxysmal atrial fibrillation (HCC) Procedures CT HEART STUCTURE AND MORPHOLOGY W CONTRAST Yousif Thurston MD Phone: tel: fax: Referral ID Status Reason Start Date Expiration Date Visits Re quested Visits Authorized [id number] Closed 09/17/2019 09/16/2020 1 1 Reason for Visit * Auth/Cert/Inpt Specialty Diagnoses / Procedures Referred By Diane arzate Referred To Contact Diagnoses Paroxysmal atrial fibrillation (HCC) Paroxysmal atrial fibrillation (HCC) [I48.0] Procedures KS INTRACARDIAC ELECTROPHYSIOLOGIC 3D MAPPING KS EPHYS EVL TRNSPTL TX ATRIAL FIB ISOLAT PULM VEIN KS ICAR CATHETER ABLATION ARRHYTHMIA ADD ON KS INTRACARD ECHO, THER/DX INTERVENT PAROXYSMAL ATRIAL FIBRILLATION ABLATION WITH 3D MAPPING Referral ID Status Reason Start Date Expiration Date Visits Re quested Visits Authorized [id number] 1 1 Encounter Details Date Type Department Care Team (Latest Contact Info) Description 10/04/2019 7:35 AM EST Hospital Encounter [facility] [place] [address] Yousif Thurston MD [address] [place] [address] [place] [address] Paroxysmal atrial fibrillation (HCC); Encounter for preprocedural cardiovascular examination Discharge Disposition: Home or Self Care Social [...] Puffs into the lungs daily at 0900. metoprolol (LOPRESSOR) 50 mg Oral TabletIndications: Atrial fibrillation, unspecified type (HCC) Take 50 mg by mouth 2 times daily. 0 08/27/2019 10/05/2019 sotalol (BETAPACE) 120 mg Oral Tablet Take 1 Tab by mouth every 12 hours. 60 Each 3 10/05/2019 01/28/2020 documented as of this encounter Discharge Disposition Disposition Code Departure Means Destination Home or Self Care documented in this encounter Plan of Treatment Not on file documented as of this encounter Procedures Procedure Name Priority Date/Time Associated Diagnosis Comments CT HEART STUCTURE AND MORPHOLOGY W CONTRAST Routine 10/04/2019 8:30 AM EST Encounter for preprocedural cardiovascular examination Paroxysmal atrial fibrillation (HCC) CREATININE ISTAT Routine 10/04/2019 8:04 AM EST documented in this encounter Results * CT HEART STUCTURE AND MORPHOLOGY W CONTRAST (10/04/2019 8:30 AM EST) Anatomical Region Laterality Modality Chest Computed Tomogra phy 10/04/2019 8:30 AM EST Impressions 10/04/2019 9:17 AM EST Pulmonary vein anatomy as detailed above. ??Standard atrial morphology. - Narrative 10/04/2019 9:[address] HEART STRUCTURE AND MORPHOLOGY WITH CONTRAST, ??10/04/2019 8:30 AM CLINICAL HISTORY: ??Z01.810-Encounter for preprocedural cardiovascular pbfjtpukuvm-YDZ-55-CM I48.0-Paroxysmal atrial irwdamkxmxdr-PGB-22-CM COMPARISON: ??None. PROCEDURE COMMENTS: No pharmacologic intervention. The patient was given 100 mL Isovue 370 intravenous contrast material. Multidetector CT for scan volume acquisition. Multiplanar reconstructions. ??Automated exposure control for dose reduction was used. CTDIvol: .6 - 4.5 mGy. DLP: 85 mGy-cm. FINDINGS: ?? LEFT ATRIUM: Pulmonary venous anatomy is standard. The left atrial appendage is normal. The left inferior pulmonary vein orifice is situated at the anterior margin of the descending thoracic aorta. Pulmonary vein orifices: RIGHT superior: 2.1cm. RIGHT inferior: 1.4cm. LEFT superior: 1.4cm. LEFT inferior: 1.7cm. CORONARY ARTERIES: Standard anatomy. ??No visualized high-grade stenosis, but note that quantitative CTA technique not used. NONCORONARY STRUCTURES: Pericardium normal. Visualized portions of the thoracic aorta are normal. The aortic valve is tricuspid. The visualized areas of the lungs are clear. Prior CABG. Dual-lead ventricular pacemaker is present. Procedure Note Willie Watkins MD - 10/04/2019 CT HEART STRUCTURE AND MORPHOLOGY WITH CONTRAST, 10/04/2019 8:30 AM CLINICAL HISTORY: Z01.810-Encounter for preprocedural cardiovascular ieokfumrksl-XUI-01-CM I48.0-Paroxysmal atrial bdiuvratkumz-PRX-27-CM COMPARISON: None. PROCEDURE COMMENTS: No pharmacologic intervention. The patient was pgoqu354 mL Isovue 370 intravenous contrast material. Multidetector CT for scanvolume acquisition. Multiplanar reconstructions. Automated exposure control fordose reduction was used. CTDIvol: .6 - 4.5 mGy. DLP: 85 mGy-cm. FINDINGS: LEFT ATRIUM: Pulmonary venous anatomy is standard. The left atrial appendage is normal.The left inferior pulmonary vein orifice is situated at the anterior margin ofthe descending thoracic aorta. Pulmonary vein orifices: RIGHT superior: 2.1cm. RIGHT inferior: 1.4cm. LEFT superior: 1.4cm. LEFT inferior: 1.7cm. CORONARY ARTERIES: Standard anatomy. No visualized high-grade stenosis,but note that quantitative CTA technique not used. NONCORONARY STRUCTURES: Pericardium normal. Visualized portions of thethoracic aorta are normal. The aortic valve is tricuspid. The visualized areas ofthe lungs are clear. Prior CABG. Dual-lead ventricular pacemaker is present. IMPRESSION: Pulmonary vein anatomy as detailed above. Standard atrial morphology. - Yousif Thurston MD IMG CT ORDERABLES Final Result * CREATININE ISTAT (10/04/2019 8:04 AM EST) Creatinine-iST AT 0.9 0.6 - 1.3 mg/dL 10/04/2019 8:13 AM EST [facility] Blood BLOOD SPECIMEN / Unknown 10/04/2019 8:04 AM EST 10/04/2019 8:13 AM EST Yousif Thurston MD POINT OF CARE TEST ORDER UMANG Final Result Performing Organization Address City/State/[facility] Co de Phone Number [facility] [address] [place] [address] documented in this encounter Visit Diagnoses Diagnosis Paroxysmal atrial fibrillation (HCC) Atrial fibrillation Encounter for preprocedural cardiovascular examination Pre-operative cardiovascular examination documented in this encounter Administered Medications Inactive Administered Medications - up to 1 most recent administrations Medication Order MAR Action Action Date Dose Rate Site iopamidol (ISOVUE-370) 76 % injection (LOW) 75 mL 75 mL, Intravenous, ONCE PRN, 1 dose, Starting on Shreya 10/04/19 at 0830, Until Shreya 10/04/19 at 0831, Radiography/Imaging, Radiology Procedure, VESICANT , CT (Contrasts) Given 10/04/2019 8:31 AM EST 75 mL sodium chloride 0.9% syringe 100 mL 100 mL, Intravenous, ONCE PRN, 1 dose, Starting on Shreya 10/04/19 at 0830, Until Shreya 10/04/19 at 0831, Line Care, Use for drug dilution, Flush every shift or after IV medication, CT (Contrasts) Given 10/04/2019 8:31 AM EST 100 mL sodium chloride 0.9% syringe 20 mL 20 mL, Intravenous, ONCE PRN, 1 dose, Starting on Sherya 125/19 at 0830, Until Shreya 10/04/19 at 0831, Line Care, Flush every shift or after IV medication, CT (Contrasts) Given 10/04/2019 8:31 AM EST 20 mL documented in this encounter Orders Medications Ordered That Allan ht Not Have Been Administered Count Last Ordered Date First Ordered Date 0.45 % NaCl infusion 1 10/03/2019 acetaminophen (TYLENOL) tablet 1,000 mg 1 1 12/04/2018 lactated ringers infusion 1 10/03/2019 pantoprazole (PROTONIX) 40 m g in sodium chloride 10 mL injection 1 10/03/2019 documented in this encounter
--- OUTSIDE RECORDS SUMMARY | 2024-09-18 11:08 | XMS_ITS | Encounter Summary ---
Author Organization [place] Address [facility] [place] [address] Care Team Providers Care Sap Business Analyst Name Role Phone Unavailable Primary Care Provider Unavailabl e Encounter Details Date Type Department Care Team (Late st Contact Info) Description 09/19/2019 Orders Only Adult Med [address] [place] [address] [place] [address] Apple Fritz APRN Paroxysmal atrial fibrillation (HCC) (Primary Dx) Social History Tobacco Use [...] Paroxysmal atrial fibrillation (HCC)- Primary Atrial fibrillation documented in this encounter
--- OUTSIDE RECORDS SUMMARY | 2024-09-18 11:08 | XMS_ITS | Encounter Summary ---
Author Organization [place] [address] Care Team Providers Care Utilization Engineer Name Role Phone Unavailable Primary Care Provider Unavailabl e Encounter Details Date Type Department Care Team (Late st Contact Info) Description 10/04/2019 Orders Only [facility] [address] [facility] [address] [place] [address] Yousif Thurston MD [address] [id number] Social History Tobacco Use Types Packs/Day Years [...] Procedure Name Priority Date/Time Associated Diagnosis Comments EP LAB RECORDINGS Routine 10/04/2019 12:22 PM EST documented in this encounter Results * EP LAB RECORDINGS (10/04/2019 12:22 PM EST) 10/04/2019 12:2 2 PM EST us Yousif Thurston MD CARDIAC CATH ORDERABLES Edited Result - Final [facility] [address] [id number] documented in this encounter Visit Diagnoses Not on filedocumented in this encounter
--- OUTSIDE RECORDS SUMMARY | 2024-09-18 11:08 | XMS_ITS | Encounter Summary ---
Author Organization [place] [address] Care Team Providers Care Stockroom Helper Name Role Phone Unavailable Primary Care Provider [...] Expiration Date Visits Re quested Visits Authorized [id number] Closed 09/17/2019 09/16/2020 1 1 Reason for Visit * Reason Onset Date Comments Other 2019 schedule procedu re Encounter Details Date Type Department Care Team (Late st Contact Info) Description 2019 Telephone [facility] [address] [facility] [address] [place] [address] Yousif Thurston MD [address] [place] [address] Other (schedule procedure ) Social History Tobacco Use Types Packs/Day Years Used Date Smoking Tobacco: Former Cigarettes Smokeless Tobacco: Never Sex and Gender Information Value Date Recorded Sex Assigned at Not on file Legal Sex Male 4:44 AM EDT Gender Identity Not on file Sexual Orientation Not on file documented as of this encounter Miscellaneous Notes * Addendum Note - Jonathan Winn MA - 09/17/2019 2:00 PM ESTAddended by: JONATHAN WINN on: 09/17/2019 02:00 PM Modules accepted: Orders * Telephone Encounter - Jonathan Winn MA - 09/17/2019 1:48 PM EST Shakeel Poon is scheduled for a procedure on 10/04/[address] Thurston. I spoke with the patient on the phone and went over all procedure instructions with him. I advised Shakeel Poon to arrive at the patient entrance at [facility] on 10/04/19 at 8:15 am for a 8:30 am procedure. Patient is to have a a CT of the heart structure and morphology prior to his procedure. Shakeel Poon is not to have anything to eat or drink after midnight the night prior to the procedure d/t having the CT, pt was also instructed no caffeine 12 hours prior, no nicotine 48 hours prior, and no erectiledysfunction medication [address] time of 8:30 am. Shakeel Poon was instructed not to take metoprolol for 48 hours prior to the procedure. Shakeel Poon is aware that PAT will be contacting them. I also gave Shakeel Poon their follow up appointment for 11/21/2019 at 10:30 am with Tiffanie Fritz APRN. Shakeel Poon agreed and verbalized understanding to all orders. * Addendum Note - Jonathan Winn MA - 09/17/2019 12:30 PM ESTAddended by: JONATHAN WINN on: 09/17/2019 12:30 PM Modules accepted: Orders * Telephone Encounter - Jonathan Winn MA - 09/12/2019 3:53 PM EST Spoke with patient, he would like to proceed with the ablation at this point. I will work on getting this scheduled for 10/04/19 at 11:30 am. I will try to corrdinate for the patient to have a CT heart structure and morphology the morning of the procedure per Dr. Thurston's request. * Telephone Encounter - Yousif Thurston MD - 09/11/2019 2:17 PM EST Please schedule the ablation. Doing both at same time would put him at risk for complications. If he wishes to do both, I would recommend gen change at least one week prior to ablation. * Telephone Encounter - Naila Allen - 2019 11:42 AM EST Patient is calling because he would like to move forward with the ablation. He also would like to know if Dr Thurston can replace his device at the same time? Please call Shakeel @ [phone]. Thank you documented in this encounter Plan of Treatment Not on file documented as of this encounter Results * CT HEART STUCTURE AND MORPHOLOGY W CONTRAST (10/04/2019 8:30 AM EST) Anatomical Region Laterality Modality Chest Computed Tomogra phy 10/04/2019 8:30 AM EST Impressions 10/04/2019 9:17 AM EST Pulmonary vein anatomy as detailed above. ??Standard atrial morphology. - Narrative 10/04/2019 9:[address] HEART STRUCTURE AND MORPHOLOGY WITH CONTRAST, ??10/04/2019 8:30 AM CLINICAL HISTORY: ??Z01.810-Encounter for preprocedural cardiovascular hpkvkfiqlzd-LCZ-36-CM I48.0-Paroxysmal atrial fkdohwyzjrhg-ZPF-40-CM COMPARISON: ??None. PROCEDURE COMMENTS: No pharmacologic intervention. [...] AM CLINICAL HISTORY: Z01.810-Encounter for preprocedural cardiovascular nedjmjbwkew-QDR-15-CM I48.0-Paroxysmal atrial unnuhlsrjbej-JDA-23-CM COMPARISON: None. PROCEDURE COMMENTS: No pharmacologic intervention. The patient was vhwum808 mL Isovue 370 intravenous contrast material. Multidetector [...] Thurston MD IMG CT ORDERABLES Final Result documented in this encounter Visit Diagnoses Diagnosis Paroxysmal atrial fibrillation (HCC)- Primary Atrial fibrillation Encounter for preprocedural cardiovascular examination Pre-operative cardiovascular examination Paroxysmal atrial fibrillation (HCC) Atrial fibrillation Encounter for preprocedural cardiovascular examination Pre-operative cardiovascular examination documented in this encounter Orders Procedures Count Last Ordered Date First Orde red Date SURGICAL/PROCEDURE CASE REQUEST 1 9 documented in this encounter
--- OUTSIDE RECORDS SUMMARY | 2024-09-18 11:08 | XMS_ITS | Encounter Summary ---
Author [place] [address] Care Team Providers Care Spa Consultant Name Role Phone Unavailable Primary Care Provider Unavailabl e Reason for Visit * Auth/Cert/Inpt Specialty Diagnoses / Procedures Referred By Diane t Referred To Contact Diagnoses Paroxysmal atrial fibrillation (HCC) Paroxysmal atrial fibrillation (HCC) [I48.0] Procedures OK INTRACARDIAC ELECTROPHYSIOLOGIC 3D MAPPING OK EPHYS EVL TRNSPTL TX ATRIAL FIB ISOLAT PULM VEIN OK ICAR CATHETER ABLATION ARRHYTHMIA ADD ON OK INTRACARD ECHO, THER/DX INTERVENT PAROXYSMAL ATRIAL FIBRILLATION ABLATION WITH 3D MAPPING Referral ID Status Reason Start Date Expiration Date Visits Re quested Visits Authorized [id number] 1 1 Encounter Details Date Type Department Care Team (Latest Contact Info) Description 10/04/2019 7:36 AM EST - 10/05/2019 1:52 PM EST Hospital [place] [address] Yousif Thurston MD [address] [place] [address] Paroxysmal atrial fibrillation (HCC); Paroxysmal atrial fibrillation (HCC) Discharge Disposition: Home [...] Sign Reading Time Taken Comments Blood Pressure 146/80 10/05/2019 1:29 PM EST Pulse 50 10/05/2019 1:29 PM EST Temperature 36.3 ??C (97.4 ??F) 10/05/2019 8:56 AM ES T Respiratory Rate 16 10/05/2019 1:29 PM EST Oxygen Saturation 94% 10/05/2019 1:29 PM EST Inhaled Oxygen Concentration - - Weight 86.2 kg (190 lb) 10/04/2019 6:11 PM EST Height - - Body Mass Index 26.5 09/07/2019 12:56 PM EST documented in this encounter Discharge Summaries * Yousif Thurston MD - 10/05/2019 8:[address] [facility] Discharge Summary Patient Name: Shakeel Poon [...] Your Medications These medications were sent to [id number] [address] - [address] - [phone] [facility] [address] ?? fUROsemide 40 mg Tab ?? sotalol 120 mg Tab Follow Up: Maycol Fritz APRN [address] [place], [place] [id number] On 11/21/2019 at 1030 AM - f/u to atrial fib ablation Echo to be scheduled 11/21/2018 ECG on October 08 Signed: Maycol Fritz APRN 10/05/2019 8:30 AM documented in this encounter Discharge Instructions * Discharge Instructions* Ines Gloria RN - 10/05/2019 1:31 PM EST - take lasix 40 mg daily x 3 days - call me on Tuesday and let me know How you are [...] week. [facility]-Cardiovascular Angiogram Discharge IP/OP leg access [facility] Discharge Instructions - Leg Access Best wishes are extended to you on behalf of [facility] as you are discharged. Because we [...] sent through Care Everywhere. * Furosemide tablets (Slovenian) * Sotalol tablets (Betapace) (Slovenian) documented in this encounter Medications at Time [...] Code Departure Means Destination Home or Self Mcfp documented in this encounter Progress Notes * [...] given. Pt verbalized understanding. IVremoved, dressing applied. welt insole channeler removed. Pt decline wheelchair for discharge and [...] Complaint Patient presents with ??? New Patient cena ref by PCP for AF, MDT D [...] (i.e. female sex) Male = 0 0 [id number] Score 3 1. Sinus bradycardia with first degree AV block 2. Dual chamber pacemaker - battery - implanted 2005 3. Paroxysmal atrial fibrillation 4. CAD s/p CABG 2004 --> Last [facility] 2017, failed grafts with patent [place] coronary arteries per patient 5. COPD Symptomatic [...] in this encounter Nursing Notes * Olga Spivey, DARYL - 10/02/2019 4:[address] Thurston's [...] PM EST Impressions 10/05/2019 12:58 PM EST ?[facility] [place] ? Test Date: ?2019-10-05 Pat Name: ? SHAKEEL POON ? Department: ?? DEPID ? Room: ? CSSU11 Gender: ? Male ? Cam Specialist: ?? Ap : ?1950 ? Requested By: MAYCOL SUDEEP Order Number: [id number] ?Reading MD: ?? Charles Cruz, MD ? Measurements Intervals ?[place] ? Rate: ? 47 ? P: ?75 OK: ? 204 ?QRS: ?60 QRSD: ? 104 [...] Pat Name: SHAKEEL POON Department: DEPID Room: [facility] Gender: Male Cam Specialist: Ap : 1950 Requested By: MAYCOL FRITZ Order Number: [id number] Reading MD: Charles Cruz MD Measurements Intervals [place] Rate: 47 P: 75 OK: 204 QRS: 60 QRSD: 104 T: -68 QT: 452 QTc: 402 Interpretive Statements SINUS BRADYCARDIA WITH SINUS ARRHYTHMIA ST DEVIATION AND MODERATE T-WAVE ABNORMALITY, CONSIDER ANTEROLATERALISCHEMIA ST DEVIATION AND MODERATE T-WAVE ABNORMALITY, CONSIDER INFERIOR ISCHEMIA NO OLD EKGS FOR COMPARISON Electronically Signed On 10-05-2019 12:58:01 EST by Charles Cruz MD us Maycol Fritz DIRECT SERVICE PROFESSIONAL IMG ECG ORDERABLES Final Resul t * ECG AND WAVEFORMS - TELEMETRY (10/05/2019 7:26 AM EST) [facility] ECG INTERPRET NSR [facility] DIET CLERK APPROVED Yes [facility] 10/05/2019 7:26 AM EST Narrative [facility] - 10/05/2019 8:52 AM EST ROUTINE SEND KH/AICU ??OK 0.18 ??QRS 0.09 ??RR 1.00 ??QT 0.43 ??QTc 0.43 us Unknown Provider POINT OF CARE CARDIOLOGY Final Result [facility] [address] [place] [address] * (ABNORMAL) PT / INR (10/05/2019 5:55 AM EST) Pathologist [facility] PT 28.5(H) 9.7 - 12.5 second(s) 10/05/2019 6:51 AM EST [facility] INR 2.48(H) 0.86 - 1.10 no units 10/05/2019 6:51 AM EST [facility] Comment: Level of Therapy ? Indications ?Target [...] ORDERABLES Fi nal Result Performing Organization Address City/[facility]/ZIP Co de Phone Number [facility] [address] [facility], [place] [address] * ECG AND WAVEFORMS - TELEMETRY (10/04/2019 7:04 PM EST) ECG INTERPRET NSR [facility] DIET CLERK APPROVED Yes [facility] 10/04/2019 7:04 PM EST Narrative [facility] - 10/04/2019 8:09 PM EST GR/AICU ROUTNE STRIP ??OK 0.19 ??QRS 0.07 ??QT 0.40 ??See Clinical Report link for waveform capture us Unknown Provider POINT OF CARE CARDIOLOGY Final Result [facility] [address] [place] [address] * ECG AND WAVEFORMS - TELEMETRY (10/04/2019 6:09 PM EST) ECG INTERPRET R [facility] Comment:with inverted T wave s RN APPROVED Yes [facility] 10/04/2019 6:09 PM EST Narrative [facility] - 10/04/2019 6:24 PM EST JDK\AICU ROUTINE ADMIT ??OK 0.19 ??QRS 0.06 ??QT 0.39 ??See Clinical Report link for waveform capture us Unknown Provider POINT OF CARE CARDIOLOGY Final Result Performing Organization Address [facility] de Phone Number [facility] [address] [place] [id number] * PAROXYSMAL ATRIAL FIBRILLATION ABLATION WITH 3D [...] energy applications: 70 Total Energy Delivered : 631301 joules Cardioversion Atrial fibrillation was the pre-cardioversion rhythm. Method of cardioversion was synchronous cardioversion. Energy shock delivered: 200 joules. Time shock delivered: 14:26. Sinus rhythm was the post cardioversion rhythm. There were no in-lab complications. Post Intervals Intervals were collected post ablation. Sinus rhythm was observed. Ventricular cycle length: 856 ms OK interval: 157 ms QRS duration: 100 ms QT interval: 390 ms Corrected QT interval: 421.53 ms P-dur interval: 90 AH interval: 93 ms HV interval: 46 ms AV Wenckebach interval: 290 ms AVNERP: 600 / 330 / 220 ms AERP :600 / 200 us Yousif Thurston MD ELECTROPHYSIOLOGY ORDERA BLES Final Result Performing Organization Address [facility] Co de Phone Number [facility] * (ABNORMAL) ACTIVATED CLOTTING TIME LR POC (10/04/2019 3:00 PM EST) ACT-LR >400(H) 89 - 169 second(s) 10/04/2019 3:05 PM EST [facility] Blood BLOOD SPECIMEN / Unknown 10/04/2019 3:00 PM EST 10/04/2019 3:05 PM EST Yousif Thurston MD POINT OF CARE TEST ORDER UMANG Final Result Performing Organization Address [facility] Co de Phone Number [facility] [address] [place] [address] * (ABNORMAL) ACTIVATED CLOTTING TIME LR POC (10/04/2019 2:37 PM EST) ACT-LR >400(H) 89 - 169 second(s) 10/04/2019 2:43 PM EST [facility] Blood BLOOD SPECIMEN / Unknown 10/04/2019 2:37 PM EST 10/04/2019 2:43 PM EST Yousif Thurston MD POINT OF CARE TEST ORDER UMANG Final Result Performing Organization Address [facility] de Phone Number [facility] [address] [place] [address] * (ABNORMAL) ACTIVATED CLOTTING TIME LR POC (10/04/2019 2:10 PM EST) ACT-LR >400(H) 89 - 169 second(s) 10/04/2019 2:16 PM EST [facility] Blood BLOOD SPECIMEN / Unknown 10/04/2019 2:10 PM EST 10/04/2019 2:16 PM EST Yousif Thurston MD POINT OF CARE TEST ORDER UMANG Final Result Performing Organization Address [facility] Co de Phone Number [facility] [address] [place] [address] * (ABNORMAL) ACTIVATED CLOTTING TIME LR POC (10/04/2019 1:48 PM EST) ACT-LR >400(H) 89 - 169 second(s) 10/04/2019 1:54 PM EST [facility] Blood BLOOD SPECIMEN / Unknown 10/04/2019 1:48 PM EST 10/04/2019 1:54 PM EST Yousif Thurston MD POINT OF CARE TEST ORDER UMANG Final Result Performing Organization Address [facility] Co de Phone Number [facility] [address] [place] [address] * (ABNORMAL) ACTIVATED CLOTTING TIME LR POC (10/04/2019 1:27 PM EST) ACT-LR >400(H) 89 - 169 second(s) 10/04/2019 1:32 PM EST [facility] Blood BLOOD SPECIMEN / Unknown 10/04/2019 1:27 PM EST 10/04/2019 1:32 PM EST us Yousif Thurston MD POINT OF CARE TEST ORDER UMANG Final Result Performing Organization Address [facility] [place] [address] * (ABNORMAL) ACTIVATED CLOTTING TIME LR POC (10/04/2019 1:05 PM EST) ACT-LR >400(H) 89 - 169 second(s) 10/04/2019 1:10 PM EST [facility] Blood BLOOD SPECIMEN / Unknown 10/04/2019 1:05 PM EST 10/04/2019 1:10 PM EST Yousif Thurston MD POINT OF CARE TEST ORDER UMANG Final Result Performing Organization Address [facility] [place] [address] * (ABNORMAL) POCT PT/INR (10/04/2019 8:58 AM EST) Protime 38.7(A) 11.2 - 13.7 SECONDS [facility] INR 3.2(A) 0.86 - 1.16 [facility] Lot Number [id number] [facility] Expiration Date 2020-06-02 1 [facility] SeriAl # [id number] Blood 10/04/2019 8:58 AM EST us Yousif Thurston MD POINT OF CARE TEST ORDER UMANG Final Result [facility] [address] [place] [phone] * (ABNORMAL) CBC WITH DIFF (10/04/2019 8:40 AM EST) WBC 11.5(H) 3.7 - 10.3 x10(3)/mcL 10/04/2019 [...] 8:54 AM EST [facility] Nobles Percent 11.9 % 10/04/2019 8:54 AM EST [facility] Eos Percent 2.0 % 10/04/2019 8:54 AM EST [facility] Baso Percent 1.0 % 10/04/2019 8:54 AM EST [facility] Neut # 7.6(H) 1.6 - 6.1 x10(3)/[facility] 10/04/2019 8:54 AM EST [facility] Comment:Neutrophils equals s egs plus bands IMMGRAN# 0.1 0.0 - 0.1 x10(3)/[facility] 10/04/2019 8:54 AM EST [facility] Comment:Automated count of m etamyelocytes, myelocytes and promyelocytes. An absolute IG <0.1 is reported as 0.0. Lymph # 2.0 1.2 - 3.9 x10(3)/[facility] 10/04/2019 8:54 AM EST [facility] Nobles # 1.4(H) 0.3 - 0.9 x10(3)/[facility] 10/04/2019 8:54 AM EST [facility] Eos# 0.2 0.0 - 0.5 x10(3)/[facility] 10/04/2019 8:54 AM EST [facility] Baso # 0.1 0.0 - 0.1 x10(3)/[facility] 10/04/2019 8:54 AM EST [facility], [facility] Blood VENOUS BLOOD / Unknown Butterfly / Unknown 10/04/2019 8:40 AM EST 10/04/2019 8:49 AM EST us Yousif Thurston MD HEMATOLOGY ORDERABLES Fi nal Result [facility] [address] [facility] , [place] [address] * (ABNORMAL) BASIC METABOLIC PANEL (10/04/2019 8:40 AM EST) Pathologist [facility] Sodium 140 136 - 145 mmol/L 10/04/2019 9:40 AM EST [facility] Potassium 4.1 3.5 - 5.0 mmol/L 10/04/2019 9:40 AM EST [facility] Chloride 101 98 - 107 mmol/L 10/04/2019 9:40 AM EST [facility] Total CO2 18(L) 22 - 29 mmol/L 10/04/2019 9:40 AM EST [facility] Anion Gap 21(H) 7 - 16 mmol/L 10/04/2019 9:40 AM EST [facility] Calcium 9.1 8.8 - 10.4 mg/dL 10/04/2019 9:40 AM EST [facility] Glucose Lvl 137(H) 82 - 100 mg/dL 10/04/2019 9:40 AM EST [facility] BUN 10 8 - 23 mg/dL 10/04/2019 9:40 AM EST [facility] Creatinine 0.80 0.67 - 1.30 mg/dL 10/04/2019 9:40 AM EST [facility], [facility] GFR Afr Am 105 >=60 mL/min/1.7 3 m2 10/04/2019 9:40 AM EST [facility] GFR Non Afr Am 91 >=60 mL/min/1.7 3 m2 10/04/2019 9:40 AM EST [facility] Comment: This estimated GFR was calculated [...] CHEMISTRY ORDERABLES Fin al Result [facility], [facility] [address] [facility] , [address] [place] [phone] [facility] 1 [place] [address] documented in this encounter Visit Diagnoses Diagnosis Paroxysmal atrial fibrillation (HCC)- Primary Atrial fibrillation Paroxysmal atrial fibrillation (HCC) Atrial fibrillation S/P ablation of atrial fibrillation Other postprocedural status Paroxysmal atrial fibrillation (HCC) Atrial fibrillation documented [...] of Breath, Waste Sort Code = SP fUROsemide (LASix) injection 20 mg 20 mg, Intravenous, ONCE, 1 dose, On Tue10/05/19 at 1030, MAXIMUM ADMINISTRATION RATE = 40 mg/min Given 10/05/2019 11:07 AM EST 20 mg lactated ringers infusion Intravenous, at 100 mL/hr, [...] 10/04/19 at 1808, Until Tue10/05/19 at 1753, Pain, Pain Unrelieved by Oral [...] atrial fibrillation (HCC) 1. Paroxysmal atrial fibrillation (HCC)Indications:Paroxysmal atrial fibrillation (HCC) Given 10/04/2019 9:15 AM [...] Until Discontinued, Do not crush or chew 205 (Given - Provider: Casi Atkins RN) 0907 (Given - Provider: Ines Gloria RN) sodium chloride 0.9% syringe Intravenous, EVERY 8 HOURS SCHEDULED (3 times per day), First dose on Shreya 10/04/19 at 1615, Until Discontinued, Flush with 3-5 mL saline for PERIPHERAL saline lock maintenance. 1615 (Not Given - Provider: Ines Gloria RN - Reason: Patient not available)2200 (Given - Provider: Casi Atkins, DARYL) 0510 (Given - Provider: Casi Atkins RN) [...] on Shreya 10/04/19 at 2115, Until Discontinued 855 (Given - Provid er: April Bernal, ENAMELER) vancomycin (VANCOCIN) 1,300 mg in sodium chloride 0.9 % 275 mL IVPB (COMPLETED) 1,300 mg, Intravenous, ONCE, 1 dose, On Shreya 10/04/19 at 1530, Administer over 90 Minutes, To be infused just prior to entering procedure room VESICANT , Pre-Procedure(Cath) 1230 (IV Started - Provider: Dawn Bernard RN)1400 (Stopped - Provider: Dawn Bernard RN) PRN [...] 10/04/19 at 1808, Until 10/05/19 at 1753, Headaches, Maximum adult dose of [...] Intra-procedure(Cath) 1239 (Given - Provider: Cecilia Dye, RT)1239 (Given - Provider: Cecilia Dye, RT)1400 (Given - Provider: Cecilia Dye RT)1513 (Given - Provider: Cecilia Dye, RT) heparin 2 units/ml in 0.9% NaCl 500 mL (CANCELED) PRN, Starting on Shreya 10/04/19 at 1239, Until Shreya 10/04/19 at 1553, Intra-procedure(Cath) 1239 (Given - Provider: Cecilia Dye RT)1256 (Canceled Entry - Provider: Koko Cervantes [...] 10/04/19 at 1808, Until Tue10/05/19 at 1753, Pain, Pain Unrelieved by Oral [...] Starting on Shreya 10/04/19 at 0912, Until Tue10/04/19 at 0915, Preprocedure, Administer in CCR for A-fib cryoablation, Dx: 1. Paroxysmal atrial fibrillation (HCC) 1. Paroxysmal atrial fibrillation (HCC) 914 (Given - Provider: Shayy Ugalde RN) sodium [...] NTOLIN HFA) INHALER 2 Puff 1 10/04/2019 bupivacaine (MARCAINE) 0.5 % (5 mg/mL) injection 1 10/04/2019 dimenhyDRINATE (DRAMAMINE) i njection 12.5-25 mg 1 10/04/2019 fentaNYL (SUBLIMAZE) injection 25 mcg 1 02/2019 heparin (porcine) 1,000 Unit s in sodium chloride 0.9 % 1,000 mL IRRIGATION 1 10/04/2019 heparin 2 units/ml in 0.9% NaCl 500 mL 1 HYDROmorphone (DILAUDID) injection 0.5 mg 1 10/04/2019 [...]
--- OUTSIDE RECORDS SUMMARY | 2024-09-18 11:08 | XMS_ITS | Encounter Summary ---
Author Organization [place] [address] Care Team Providers Care Service Bar Cashier Name Role Phone Unavailable Primary Care Provider Unavailabl e Encounter Details Date Type Department Care Team (Late st Contact Info) Description 03/22/2001 11:21 AM EDT - 03/22/2001 11:59 PM EDT Hospital Encounter HST GC SPEC SVC GRT Melvin Sapp MD [address] [place] [address] Social History Tobacco Use Types [...]
--- OUTSIDE RECORDS SUMMARY | 2024-09-18 11:08 | XMS_ITS | Encounter Summary ---
Author Organization [place] [address] Care Team Providers Care Resident Surgeon Name Role Phone Unavailable Primary Care Provider Unavailabl e Encounter Details Date Type Department Care Team (Late st Contact Info) Description 01/13/2004 2:05 PM EST - 01/13/2004 11:59 PM EST Hospital Encounter [facility] LAB EDG Les Major MD [address] [place] [address] Social History Tobacco Use Types Packs/Day [...]
--- OUTSIDE RECORDS SUMMARY | 2024-09-18 11:08 | XMS_ITS | Encounter Summary ---
Author Organization [place] [address] Care Team Providers Care Laborer Syrup Machine Name Role Phone Unavailable Primary Care Provider Unavailabl e Encounter Details Date Type Department Care Team (Late st Contact Info) Description 01/25/2001 4:27 PM EST - 01/25/2001 11:59 PM EST Hospital Encounter HST GC SPEC SVC GRT Melvin Sapp MD [address] [place] [address] Social History Tobacco Use Types [...]
--- OUTSIDE RECORDS SUMMARY | 2024-09-18 11:08 | XMS_ITS | Encounter Summary ---
Author Organization [place] [address] Care Team Providers Care Chief Radiologic Technologist Name Role Phone Unavailable Primary Care Provider Unavailabl e Encounter Details Date Type Department Care Team (Late st Contact Info) Description 01/29/2001 12:01 AM EST - 02/27/2001 11:59 PM EDT Hospital Encounter HST PT GRT Melvin Sapp MD [address] [place] [address] Social History Tobacco Use Types [...]
--- OUTSIDE RECORDS SUMMARY | 2024-09-18 11:08 | XMS_ITS | Clinical Summary ---
Author Organization [facility] Address [address] [place] [address] Care Team Providers Care Director Rehabilitation Program Name Role Phone Unavailable Primary Care Provider Unavailabl e Social History Tobacco Use Types Packs/Day Years Used Date Smoking Tobacco: Never Assessed Sex and Gender Information Value Date Recorded Sex Assigned at Not on file Legal Sex Male 7:32 PM EDT Gender Identity Not on file Sexual Orientation Not on file Plan of Treatment Health Maintenance Due Date Last Done Comments [facility]-Depression Screening 1950 [facility]-Hepatitis C Screening 1950 [facility]-Medicare Annual Wellness (AWV) 1950 [facility]-Infant/Child/Adol SDOH Screenings 1950 [facility]- SDOH Screenings 1968 [facility]-Adult SDOH Screenings 1968 [facility]-DTaP,Tdap,and Td Vaccine s (1 - Tdap) 1969 CT Colonography 1995 Colonoscopy 1995 FIT-DNA 1995 FIT 1995 FOBT 1995 Sigmoidoscopy 1995 [facility]-Colorectal Cancer Screening 1995 [facility]-Zoster Vaccines (1 of 2) 2000 XIT-YHAHH-73 Vaccine ( - season) 2024 09/29/2021, 12/26/2020, 11/27/2020 [facility]-Influenza Vaccine (#1) 07/01/202407/18, 09/02/2017 [facility]-RSV Vaccine: 60+ Years o r (1 - 1-dose 75+ series) 2025 [facility]-Pneumococcal Vaccine: 65 + Years Completed 10/15/2020, 09/02/2017 [facility]-HIB Vaccines Aged Out No longer e ligible based on patient's age to complete this topic [facility]-HPV Vaccines Aged Out No longer e ligible based on patient's age to complete this topic [facility]-Hepatitis A Vaccines Aged Out No longer eligible based on patient's age to complete this topic [facility]-IPV Vaccines Aged Out No longer e ligible based on patient's age to complete this topic [facility]-Rotavirus Vaccines Aged Out No lo nger eligible based on patient's age to complete this topic Insurance [facility] MEDICARE
--- NOTE | 2024-09-18 11:11 | XR_ITS ---
FINAL REPORT TECHNIQUE: Chest PA & Lateral CLINICAL HISTORY: .soa and covid COMPARISON: 04/16/2024 FINDINGS: 2 views of the chest were performed. The heart size is mildly enlarged. Sternotomy wires are present. There is a left-sided pacemaker. There is no acute cardiopulmonary process. There are no pleural effusions. There is no pneumothorax. The bony thorax appears intact. IMPRESSION: No acute cardiopulmonary process. Reviewed, Interpreted and Dictated by Car Alegria MD Transcribed by Cristela Tilley Authenticated and . [facility]
== END 2024-09-18 23:59 | disposition home or self-care (01) ==
LOC: RAD 11:05
PROVIDERS: PCP Internal Medicine Adolescent Medicine; Visit Provider Nurse Practitioner Family
DX: R06.02 Shortness of breath (principal); U07.1 COVID-19
CPT/HCPCS: 71046

== ENCOUNTER 2024-10-17 10:16 | Outpatient (CLI) | payer MEDICARE, SELFPAY ==
--- NOTE | 2024-10-17 10:18 | CT_ITS ---
FINAL REPORT CLINICAL HISTORY: SCREENING former smoker quit 10 years ago 2ppd x43 years COMPARISON: CTA of the chest 11/11/2023, LDCT 09/29/2022 FINDINGS: CT CHEST LOW DOSE SCREENING HISTORY: Screening exam for lung cancer. 74-year-old male, former smoker who quit 10 years ago, 86 pack year smoking history DOSE: CTDIvol: 2.9 mGy, DLP: 115.16 mGy*cm COMPARISON: 09/29/2022. TECHNIQUE: Axial CT without IV contrast administration using low dose protocol. This study was performed with techniques to keep radiation doses as low as reasonably achievable, (ALARA). Individualized dose reduction techniques using automated exposure control or adjustment of mA and/or kV according to the patient's size were employed. FINDINGS: No acute lung disease is present . No pulmonary lesions are seen suspicious for neoplasm. Changes of emphysema are noted. There is bronchial wall thickening in the lower lobes, suggestive of chronic bronchitis. No pleural or pericardial effusion is seen . No adenopathy or mass lesion is present . IMPRESSION: No suspicious nodules are identified. Bronchial wall thickening in the lower lobes suggesting chronic bronchitis. LUNG RADS CATEGORY 1 RECOMMENDATION: 12 month LDCT follow up Reviewed, Interpreted and Dictated by Carlo Diaz MD Transcribed by Mary Alberts Authenticated and [facility]
== END 2024-10-17 23:59 | disposition home or self-care (01) ==
LOC: RAD 10:16
PROVIDERS: PCP Internal Medicine Adolescent Medicine; Visit Provider Nurse Practitioner Family
DX: Z87.891 Personal history of nicotine dependence (principal)
CPT/HCPCS: 71271

== ENCOUNTER 2025-03-06 12:53 | Outpatient (CLI) | payer MEDICARE, SELFPAY ==
[2025-03-06 13:35] LABS: Basophils # 0.1 K/mm3 (0-0.2); Basophils % 1.4 % (0.1-2.0); Eosinophils # 0.3 Kmm3 (0.0-0.4); Eosinophils % 2.7 % (0.1-12.0); Hematocrit 48.6 % (42.0-52.0); Hemoglobin 16.5 g/dL (14.1-18.0); Immature Granulocytes # 0.05 10^3uL; Immature Granulocytes % 0.5 %; Lymphocytes # 2.2 K/mm3 (0.7-4.5); Lymphocytes % 22.4 % (10-50); Mean Corpuscular Volume 91.4 fl (80-94); Mean Platelet Volume 10.2 fl (7.4-10.4); Monocytes # 1.1 K/mm3 (0.1-1.0); Monocytes % 10.9 % (1.7-9.3); Neutrophils % 62.1 % (37.0-80.0); Nucleated Red Blood Cells # 0 10^3/uL; Nucleated Red Blood Cells % 0 %; Platelet Count 282 K/mm3 (142-424); Red Blood Count 5.32 M/mm3 (4.60-6.20); Red Cell Distribution Width 13.3 % (11.5-17.5); Red Cell Distribution Width-SD 45.2 fL; White Blood Count 9.6 K/mm3 (4.8-10.8)
[2025-03-06 14:12] LABS: Alanine Aminotransferase 26 U/L (12-78); Albumin Level 4.5 g/dl (3.5-5.0); Alkaline Phosphatase 76 U/L (38-126); Anion Gap 7.7 mEq/L (5-15); Aspartate Amino Transferase 29 U/L (17-59); Bilirubin,Total 0.8 mg/dl (0.2-1.3); Blood Urea Nitrogen 11 mg/dl (9-20); Calcium 9.8 mg/dl (8.4-10.2); Carbon Dioxide 26 mmol/L (22.0-30.0); Chloride 106 mmol/L (98-107); Estimated Glomerular Filt Rate 132 ml/min (>60); GFR (African American) 159 ML/MIN (>60); Globulin 2.3 g/dL (1.3-3.2); Glucose 107 mg/dl (74-100); Magnesium 2.1 mg/dl (1.6-2.3); Potassium 4.7 mmoL/L (3.5-5.1); Sodium 135 mmol/L (136-145); Total Protein,Serum 6.8 g/dl (6.3-8.2)
[2025-03-06 14:27] LABS: Free T4 (Free Thyroxine) 1.09 ng/dl (0.78-2.19)
[2025-03-06 14:42] LABS: Thyroid Stimulating Hormone 2.11 uIU/mL (0.465-4.68)
== END 2025-03-06 23:59 | disposition home or self-care (01) ==
LOC: LAB 12:54
PROVIDERS: PCP Physician Assistant; Visit Provider Physician Assistant
DX: R00.1 Bradycardia, unspecified (principal)
CPT/HCPCS: 36415; 80053; 83735; 84439; 84443; 85025

== ENCOUNTER 2025-08-05 13:00 | Outpatient (CLI) | payer MEDICARE, SELFPAY ==
--- NOTE | 2025-08-05 13:03 | XR_ITS ---
FINAL REPORT CLINICAL HISTORY: BRONCHOPNEMONIA COMPARISON: 06/01/2017 FINDINGS: PA and lateral views of the chest were obtained. Prior median sternotomy. No change of the left pacemaker. The heart is normal in size.. Right lower lobe opacity could represent pneumonia.. There is no pleural effusion or pneumothorax. No acute osseous abnormality is identified. IMPRESSION: Right lower lobe opacity, possible pneumonia. Recommend follow-up to resolution. Reviewed, Interpreted and Dictated by Agnes Lopez MD Transcribed by Cristela Tilley Authenticated and [facility]
--- OUTSIDE RECORDS SUMMARY | 2025-08-05 13:03 | XMS_ITS | Clinical Summary ---
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
--- OUTSIDE RECORDS SUMMARY | 2025-08-05 13:03 | XMS_ITS | Encounter Summary ---
Author Organization [facility] Address [address] [place] [address] Care Team Providers Care Analyst Competitive Intelligence Name Role Phone Unavailable Primary Care Provider Unavailabl e Reason for Referral * Consultation (Routine) - Authorized Specialty Diagnoses / Procedures Referred By Contact Referred To Contact Electrophysiology / Cardiology Diagnoses Severe sinus bradycardia Agnes Fraser PA [address] [place] [address] Phone: tel:[phone] fax:[phone] Referral ID Status Reason Start Date Expiration Date Visits Requested Visits Authorized [id number] Authorized Specialty Services Required 03/07/2025 09/06/2026 1 1 Encounter Details Date Type Department Care Team (Late st Contact Info) Description 03/07/2025 [facility] [address] [place] [address] Agnes Fraser PA [address] [place] [address] Severe sinus bradycardia (Primary Dx) Social History Tobacco Use Types Packs/Day Years Used Date Smoking Tobacco: Never Assessed Sex and Gender Information Value Date Recorded Sex Assigned at Not on file Legal Sex Male 7:32 PM EDT Gender Identity Not on file Sexual Orientation Not on file documented as of this encounter Plan of Treatment Scheduled Referrals Name Type Priority Associated Diagnoses Order Schedule Ambulatory referral to Cardiac Electrophysiology Outpatient Referral Routine Severe sinus bradycardia Expected: 03/14/2025, Expires: 09/07/2026 documented as of this encounter Visit Diagnoses Diagnosis Severe sinus bradycardia- Primary Sinoatrial node dysfunction documented in this encounter
== END 2025-08-05 23:59 | disposition home or self-care (01) ==
LOC: RAD 13:01
DX: J18.0 Bronchopneumonia, unspecified organism (principal)
CPT/HCPCS: 71046